=== PATIENT | female | born 1995 | race African-American/Black ===

== ENCOUNTER 2016-05-26 10:05 | Emergency (ER) | payer MEDICAID ==
[2016-05-26] MEDS ORDERED: ONDANSETRON 4 MG TAB.RAPDIS PO ONE ×2 (10:11→12:01)
--- NOTE | 2016-05-26 10:12 | ER Document Report ---
ED Medical Screen (RME) - General Stated Complaint: BODY ACHES Mode of Arrival: Ambulatory Information source: Patient Notes: Patient reports dry cough for 2 days, nausea and vomiting that started today. She reports hematuria. Patient also complains of right lower back pain as well. hx: None I have greeted and performed a rapid initial assessment of this patient. A comprehensive ED assessment and evaluation of the patient, analysis of test results and completion of the medical decision making process will be conducted by additional ED providers. TRAVEL OUTSIDE OF THE [place] IN LAST 30 DAYS: No - Related Data Allergies/Adverse Reactions: No Known Allergies Allergy (Verified 05/26/16 10:09) Past Medical History Endocrine Medical History: Denies: Hx Diabetes Mellitus Type 2 - Immunizations Hx Diphtheria, Pertussis, Tetanus Vaccination: Yes Physical Exam - Back Back: CVA tenderness - Right
[2016-05-26 10:45] LABS: ABSOLUTE EOSINOPHILS # (AUTO) 0.1 10^3/uL (0.0-0.6); ABSOLUTE LYMPHOCYTES (AUTO) 0.6 10^3/uL (0.5-4.7); ABSOLUTE MONOCYTES (AUTO) 0.5 10^3/uL (0.1-1.4); ABSOLUTE NEUT (AUTO) 4.6 10^3/uL (1.7-8.2); BASOPHILS % (AUTO) 0.7 % (0-2); HEMATOCRIT 36.2 % (36.0-47.0); HEMOGLOBIN 12.1 g/dL (12.0-15.5); HGB HCT DIFFERENCE 0.1; LYMPHOCYTES % (AUTO) 10.9 % (13-45); MEAN CORPUSCULAR HEMOGLOBIN 30.8 pg (27.0-33.4); MEAN CORPUSCULAR HGB CONC 33.5 g/dL (32.0-36.0); MEAN CORPUSCULAR VOLUME 92 fl (80-97); MONOCYTES % (AUTO) 8.2 % (3-13); RED BLOOD COUNT 3.94 10^6/uL (3.72-5.28); RED CELL DISTRIBUTION WIDTH 12.9 % (11.5-14.0); SEGMENTED NEUTROPHILS % (AUTO) 78.2 % (42-78); WHITE BLOOD COUNT 5.9 10^3/uL (4.0-10.5)
[2016-05-26 10:52] LABS: APPEARANCE,URINE TURBID; BILIRUBIN,URINE NEGATIVE (NEGATIVE); GLUCOSE, URINE NEGATIVE (NEGATIVE); KETONES,URINE NEGATIVE (NEGATIVE); LEUKOCYTE ESTERASE,URINE LARGE (NEGATIVE); NITRITE,URINE POSITIVE (NEGATIVE); PROTEIN,URINE 100 mg/dL (NEGATIVE); URINE SPECIFIC GRAVITY 1.018; UROBILINOGEN,URINE NEGATIVE mg/dL (<2.0)
[2016-05-26 10:59] LABS: ALANINE AMINOTRANSFERASE 43 U/L (9-52); ALKALINE PHOSPHATASE 59 U/L (38-126); ANION GAP 8 (5-19); ASPARTATE AMINO TRANSFERASE 31 U/L (14-36); BILIRUBIN,DIRECT 0.1 mg/dL (0.0-0.4); BILIRUBIN,TOTAL 0.3 mg/dL (0.2-1.3); BLOOD UREA NITROGEN 8 mg/dL (7-20); CALCIUM 9.5 mg/dL (8.4-10.2); CARBON DIOXIDE 29 mmol/L (22-30); CHLORIDE 109 mmol/L (98-107); GLUCOSE 89 mg/dL (75-110); POTASSIUM 4.4 mmol/L (3.6-5.0); SODIUM 146.2 mmol/L (137-145); TOTAL PROTEIN 6.8 g/dL (6.3-8.2)
[2016-05-26] MEDS ORDERED: ACETAMINOPHEN 325 MG TABLET PO ONE (12:01)
[2016-05-26] MEDS ORDERED: SULFAMETHOXAZOLE/TRIMETHOPRIM 800-160 MG TABLET PO ONE (12:02)
--- NOTE | 2016-05-26 12:08 | ER Document Report ---
ED General - General Chief Complaint: Pain All Over Stated Complaint: BODY ACHES Mode of Arrival: Ambulatory Information source: Patient Notes: This is a 21-year-old female who presents to the emergency department with a three-day history of a dry cough. She states that since this morning she developed dysuria and hematuria and subjective fevers. She has vomited twice today. He has bilateral flank pain left greater than right. The flank pain is mild. She is tolerating po. No known sick contacts or recent travel. She states that she has had a UTI in the past and this feels very similar. TRAVEL OUTSIDE OF THE [place] IN LAST 30 DAYS: No - Related Data Allergies/Adverse Reactions: No Known Allergies Allergy (Verified 05/26/16 10:09) Past Medical History - General Information source: Patient - Social History Smoking Status: Current Every Day Smoker Chew tobacco use (# tins/day): No Frequency of alcohol use: None Drug Abuse: None Family History: Reviewed & Not Pertinent Patient has suicidal ideation: No Patient has homicidal ideation: No Endocrine Medical History: Denies: Hx Diabetes Mellitus Type 2 Renal/ Medical History: Denies: Hx Peritoneal Dialysis - Immunizations Hx Diphtheria, Pertussis, Tetanus Vaccination: Yes Review of Systems - Review of Systems Notes: REVIEW OF SYSTEMS: CONSTITUTIONAL : As per history of present illness EENT: Denies eye, ear, throat, or mouth pain or symptoms. Denies nasal or sinus congestion. CARDIOVASCULAR: Denies chest pain. RESPIRATORY: Cough as per history of present illness. Denies shortness of breath, difficulty breathing, or wheezing. GASTROINTESTINAL: Denies abdominal pain. Flank pain and vomiting as per history of present illness. GENITOURINARY: As per history of present illness FEMALE GENITOURINARY: Denies vaginal bleeding, abnormal or irregular periods. LMP: 05/12/16 MUSCULOSKELETAL: Denies joint pain or swelling. SKIN: Denies rash or skin lesions. HEMATOLOGIC : Denies easy bruising or bleeding. LYMPHATIC: Denies swollen, enlarged glands. NEUROLOGICAL: Denies altered mental status or loss of consciousness. Denies headache. PSYCHIATRIC: Denies anxiety or stress or depression. ALL OTHER SYSTEMS REVIEWED AND NEGATIVE. Physical Exam - Vital signs Vitals: Temp Pulse Resp BP Pulse Ox 99.8 F 95 14 115/83 100 05/26/16 10:09 05/26/16 10:05/26/16 10:05/26/16 10:05/26/16 10:09 - Notes Notes: PHYSICAL EXAMINATION: GENERAL: Well-appearing, thin adult female, pleasant and conversant and in no acute distress. HEAD: Atraumatic, normocephalic. EYES: Pupils equal round and reactive to light, extraocular movements intact, sclera anicteric, conjunctiva are normal. ENT: nares patent, oropharynx clear without exudates. Moist mucous membranes. NECK: Normal range of motion, supple without lymphadenopathy LUNGS: Breath sounds clear to auscultation bilaterally and equal. No wheezes rales or rhonchi. HEART: Regular rate and rhythm without murmurs ABDOMEN: Soft, mild bilateral flank tenderness to palpation. Also mild suprapubic tenderness to palpation. No peritonitis., normoactive bowel sounds. No guarding, no rebound. No masses appreciated. EXTREMITIES: Normal range of motion, no pitting or edema. No cyanosis. NEUROLOGICAL: Cranial nerves grossly intact. Normal speech, normal gait. No gross focal motor or sensory deficits appreciated. PSYCH: Normal mood, normal affect. SKIN: Warm, Dry, normal turgor, no rashes or lesions noted. Course - Re-evaluation Re-evalutation: 05/26/16 12:12 Patient presents with dysuria and hematuria as well as frequency with a urinalysis consistent with an acute urinary tract infection. She does endorse left flank pain however has not been episodic and overall it is been mild. It is not consistent clinically with renal colic. I do not highly suspect an infected kidney stone at this point. Patient does have a remote history of kidney stones but this does not feel similar. Rather than proceed with CT will obtain a plain film to assess for evidence of urolithiasis. 05/26/16 13:34 KUB demonstrates no radiographic evidence of urolithiasis. Patient is resting comfortably. We will discharge home with pain and nausea medication as well as antibiotics for the urinary tract infection. Patient is advised to follow-up with her primary care physician and strict return precautions are discussed. - Vital Signs Vital signs: Temp Pulse Resp BP Pulse Ox 99.8 F 95 14 115/83 100 05/26/16 10:05/26/16 10:05/26/16 10:05/26/16 10:05/26/16 10:09 - Laboratory Result Diagrams: 05/26/16 10:24 05/26/16 10:24 Laboratory results interpreted by me: 05/26/16 05/26/16 05/26/16 10:24 10:24 10:24 Plt Count 148 L Seg Neutrophils % 78.2 H Lymphocytes % 10.9 L Sodium 146.2 H Chloride 109 H Urine Protein 100 H Urine Blood LARGE H Urine Nitrite POSITIVE H Ur Leukocyte Esterase LARGE H Discharge - Discharge Clinical Impression: UTI (urinary tract infection) Qualifiers: Urinary tract infection type: site unspecified Hematuria presence: with hematuria Qualified Code(s): N39.0 - Urinary tract infection, site not specified URI (upper respiratory infection) Qualifiers: URI type: unspecified URI Qualified Code(s): J06.9 - Acute upper respiratory infection, unspecified Disposition: HOME, SELF-CARE Additional Instructions: URINARY TRACT INFECTION: Your evaluation indicates that you have a urinary tract infection. This is due to germs growing in the bladder. This is a common problem. This infection usually responds quickly to antibiotics. Your antibiotic should be taken exactly as prescribed. Drink plenty of fluids -- three to four quarts a day. Occasionally, a bladder anesthetic will be prescribed to help stop the feeling of urgency until the antibiotic has a chance to clear the infection. This may cause your urine to be dark orange. Certain urine infections require a culture. If the doctor obtained a culture, the results will be back in two days. You should call to see if a change in treatment is needed. A repeat urinalysis after you finish treatment is often recommended. The physician will let you know if further testing is required. Call the doctor if you develop fever, chills, flank pain, inability to urinate, or blood in the urine. ANTIBIOTIC THERAPY: You have been given an antibiotic prescription. It's important that you take all the medication, unless instructed otherwise by your physician. Failure to complete the entire course can result in relapse of your condition. Common side effects of antibiotics include nausea, intestinal cramping, or diarrhea. Women may develop vaginal yeast infections, and babies can get yeast (thrush) in the mouth following the use of antibiotics. Contact your physician if you develop significant side effects from this medication. Allergy to this antibiotic can result in hives, wheezing, faintness, or itching. If symptoms of allergy occur, stop the medication and call the doctor. TRIMETHOPRIM-SULFA: You have been given a prescription for trimethoprim-sulfa (TMS, Septra, Bactrim). This is a combination antibiotic of the sulfa class, often used for urinary tract infections, middle ear infections, bronchitis, shigella intestinal infection, and Pneumocystis pneumonia. TMS is usually well-tolerated. Occasional side effects include nausea and decreased appetite. Septra is not recommended for infants less than two months of age. Do not take this medication if you have experienced severe side effects or allergy to sulfa medicine. You should stop this medicine at once and contact your physician if you develop any rash, joint pain, shortness of breath, bruising, or jaundice ( yellow color in the skin), or if you develop any other new or unusual symptoms. URINARY ANESTHETIC AGENT: You have been given a medication (Pyridium) for urinary tract discomfort. This medicine numbs the lining of the bladder and urethra, resulting in less pain, burning, and urgency. You may take it as needed, according to instructions. When the symptoms resolve, you can stop this medication (be sure to continue any other medications the doctor has given you). This medicine turns the urine a dark orange. It may stain underwear. Occasionally, it can cause nausea. Return for evaluation if there are any unexpected effects, such as itching, hives, or shortness of breath. FOLLOW-UP CARE: If you have been referred to a physician for follow-up care, call the physician s office for an appointment as you were instructed or within the next two days. If you experience worsening or a significant change in your symptoms, notify the physician immediately or return to the Emergency Department at any time for re-evaluation. Prescriptions: Phenazopyridine HCl [Pyridium 200 mg Tablet] 200 mg PO TID #6 tablet Promethazine HCl [Phenergan 25 mg Tablet] 1 tab PO Q6H PRN #10 tablet PRN Reason: Sulfamethoxazole/Trimethoprim [Bactrim Ds Tablet] 1 each PO BID #14 tablet Referrals: BEN MOORE MD [Primary Care Provider] - Follow up as needed
[2016-05-26 13:46] VITALS: BP 107/72
== END 2016-05-26 13:45 | disposition home or self-care (01) ==
LOC: ER 10:05
DX: N39.0 Urinary tract infection, site not specified (principal); R31.9 Hematuria, unspecified; J06.9 Acute upper respiratory infection, unspecified; R05 Cough; R30.0 Dysuria; R10.9 Unspecified abdominal pain; R11.10 Vomiting, unspecified; R35.0 Frequency of micturition; F17.200 Nicotine dependence, unspecified, uncomplicated; Z87.442 Personal history of urinary calculi
CPT/HCPCS: 99283; 36415; 84703; 85025; 80053; 81001; 74000; J3490 ×2; S0119

== ENCOUNTER 2016-07-04 07:53 | Emergency (ER) | payer MEDICAID ==
[2016-07-04 08:35] LABS: ABSOLUTE LYMPHOCYTES (AUTO) 1.1 10^3/uL (0.5-4.7); ABSOLUTE MONOCYTES (AUTO) 0.5 10^3/uL (0.1-1.4); ABSOLUTE NEUT (AUTO) 7.7 10^3/uL (1.7-8.2); BASOPHILS % (AUTO) 0.3 % (0-2); EOSINOPHILS % (AUTO) 0.1 % (0-6); LYMPHOCYTES % (AUTO) 11.7 % (13-45); MEAN CORPUSCULAR HEMOGLOBIN 31.1 pg (27.0-33.4); MEAN CORPUSCULAR HGB CONC 34.1 g/dL (32.0-36.0); MEAN CORPUSCULAR VOLUME 91 fl (80-97); MONOCYTES % (AUTO) 5.9 % (3-13); RED CELL DISTRIBUTION WIDTH 12.9 % (11.5-14.0); WHITE BLOOD COUNT 9.4 10^3/uL (4.0-10.5)
[2016-07-04 08:38] LABS: APPEARANCE,URINE SLIGHTLY-CLOUDY; BILIRUBIN,URINE SMALL (NEGATIVE); GLUCOSE, URINE NEGATIVE (NEGATIVE); KETONES,URINE 80 mg/dL (NEGATIVE); LEUKOCYTE ESTERASE,URINE TRACE (NEGATIVE); NITRITE,URINE NEGATIVE (NEGATIVE); PROTEIN,URINE 100 mg/dL (NEGATIVE); URINE SPECIFIC GRAVITY 1.038
--- NOTE | 2016-07-04 08:49 | ER Document Report ---
ED Psych Disorder / Suicide - General Information source: Patient, Parent TRAVEL OUTSIDE OF THE [place] IN LAST 30 DAYS: No - HPI Patient complains to provider of: Bizarre behavior Onset: Other - 2 days ago Suicide Risk Factors: Frightened friends/family, Substance abuse - Marijuana Associated symptoms: Manic, Taoism preoccupation <SUNSHINE MOMIN - Last Filed: 07/04/16 08:42> <FINA SPENCE - Last Filed: 07/04/16 15:39> - General Chief Complaint: Psych Problem Stated Complaint: PSYCH EVALUATION Notes: Patient is a 21-year-old female presenting to the emergency department accompanied by her mother who states that the patient has been "talking out of her head" for the past 2 days. Patient's mother states that she has been discussing angels and demons. Patient's mother thinks that she may have had something laced in her marijuana. Patient's patient's mother also states that the patient's father has a history of schizophrenia that was diagnosed in his early 20s. Upon entering the room, patient asked Dr. Spence why he was scared, and states that she can "sense the fear on his heart." Patient also is saying interesting comments such as "I can turn down the lights, I just need my mommy to start telling the truth first." "It is all mind over matter." Patient is convinced that she should not have come to the emergency department because we are going to give her a psychiatric diagnosis, and she does not want to have a psychiatric diagnosis. (SUNSHINE MOMIN) - Related Data Allergies/Adverse Reactions: No Known Allergies Allergy (Verified 07/04/16 07:54) Home Medications: Current Home Medications No Home Medications 07/04/16 [History] Past Medical History - General Information source: Patient, Parent - Social History Smoking Status: Unknown if Ever Smoked Drug Abuse: Marijuana Family History: Other - Father Hx of Schizophrenia Patient has suicidal ideation: No Patient has homicidal ideation: No - Immunizations Hx Diphtheria, Pertussis, Tetanus Vaccination: Yes <SUNSHINE MOMIN - Last Filed: 07/04/16 08:42> Review of Systems - Review of Systems Constitutional: No symptoms reported EENT: No symptoms reported Cardiovascular: No symptoms reported Respiratory: No symptoms reported Gastrointestinal: No symptoms reported Genitourinary: No symptoms reported Female Genitourinary: No symptoms reported Musculoskeletal: No symptoms reported Skin: No symptoms reported Hematologic/Lymphatic: No symptoms reported Neurological/Psychological: No symptoms reported, Other - Manic -: Yes All other systems reviewed and negative <SUNSHINE MOMIN - Last Filed: 07/04/16 08:42> <FINA SPENCE - Last Filed: 07/04/16 15:39> - Review of Systems Notes: Obtained from mother at bedside (LIZZSUNSHINE) Physical Exam - General General appearance: Alert - HEENT Head: Normocephalic, Atraumatic Eyes: Normal Pupils: PERRL - Respiratory Respiratory status: No respiratory distress Breath sounds: Normal - Cardiovascular Rhythm: Regular - Abdominal Inspection: Normal Tenderness: Nontender - Back Back: Normal, Nontender - Extremities General upper extremity: Normal inspection, Nontender General lower extremity: Normal inspection, Nontender - Neurological Neuro grossly intact: Yes Cognition: Normal [place] Coma Scale Eye Opening: Spontaneous Carly Coma Scale Verbal: Oriented [place] Coma Scale Motor: Obeys Commands [place] Coma Scale Total: 15 - Psychological Associated symptoms: Manic - Skin Skin Temperature: Warm Skin Moisture: Dry Skin Color: Normal <LIZZSUNSHINE - Last Filed: 07/04/16 08:42> Course - Laboratory Result Diagrams: 07/04/16 08:08 <SUNSHINE MOMIN - Last Filed: 07/04/16 08:42> - Laboratory Result Diagrams: 07/04/16 08:08 07/04/16 08:08 - EKG Interpretation by Oh EKG shows normal: Sinus rhythm, [place], Intervals, QRS Complexes, ST-T Waves Rate: Normal - 95 Rhythm: NSR <FINA SPENCE - Last Filed: 07/04/16 15:39> - Re-evaluation Re-evalutation: 07/04/16 14:47 Patient was seen by psychiatry department feels that this is probably a bipolar manic psychotic episode, IVC paperwork was filled out. (FINA SPENCE) - Vital Signs Vital signs: Temp Pulse Resp BP Pulse Ox 98.2 F 110 H 20 116/75 98 07/04/16 07:58 07/04/16 07:58 07/04/16 09:05 07/04/16 07:58 07/04/16 07:58 - Laboratory Laboratory results interpreted by me: 07/04/16 07/04/16 07/04/16 08:08 08:08 08:08 Seg Neutrophils % 82.0 H Lymphocytes % 11.7 L Sodium 146.7 H Glucose 117 H Urine Protein 100 H Urine Ketones 80 H Urine Bilirubin SMALL H Urine Urobilinogen 2.0 H Ur Leukocyte Esterase TRACE H Urine Ascorbic Acid 40 H Salicylates < 1.0 L Acetaminophen < 10 L Discharge <SUNSHINE MOMIN - Last Filed: 07/04/16 08:42> <FINA SPENCE - Last Filed: 07/04/16 15:39> - Discharge Clinical Impression: Manic psychosis Condition: Stable Disposition: PSYCH HOSP/UNIT Referrals: ANN TOMAS MD [Primary Care Provider] - Follow up as needed Scribe Attestation: 07/04/16 14:47 I personally performed the services described in the documentation, reviewed and edited the documentation which was dictated to the scribe in my presence, and it accurately records my words and actions. (FINA SPENCE) Scribe Documentation - Scribe Written by Scribe:: Sunshine Momin 07/04/2016 0842 acting as scribe for :: Colby <SNUSHINE MOMIN - Last Filed: 07/04/16 08:42>
[2016-07-04 08:53] LABS: ALANINE AMINOTRANSFERASE 26 U/L (9-52); ALBUMIN 4.8 g/dL (3.5-5.0); ALKALINE PHOSPHATASE 62 U/L (38-126); ANION GAP 18 (5-19); ASPARTATE AMINO TRANSFERASE 20 U/L (14-36); BILIRUBIN,DIRECT 0.2 mg/dL (0.0-0.4); BILIRUBIN,TOTAL 0.7 mg/dL (0.2-1.3); BLOOD UREA NITROGEN 17 mg/dL (7-20); CALCIUM 10.2 mg/dL (8.4-10.2); CARBON DIOXIDE 22 mmol/L (22-30); CHLORIDE 107 mmol/L (98-107); CREATININE RESULT 0.73 mg/dL (0.52-1.25); GLUCOSE 117 mg/dL (75-110); POTASSIUM 3.9 mmol/L (3.6-5.0); SODIUM 146.7 mmol/L (137-145); TOTAL PROTEIN 8.2 g/dL (6.3-8.2)
[2016-07-04 08:54] LABS: ALCOHOL < 10 mg/dL (NONE DETECTED)
[2016-07-04 09:02] LABS: URINE BARBITURATES SCREEN NEGATIVE; URINE METHADONE SCREEN NEGATIVE; URINE OPIATES LOW NEGATIVE; URINE PHENCYCLIDINE SCREEN NEGATIVE
[2016-07-04] MEDS ORDERED: ONDANSETRON 4 MG TAB.RAPDIS PO ONE (13:19)
--- NOTE | 2016-07-04 13:35 | EKG REPORT ---
SEVERITY:- NORMAL ECG - SINUS RHYTHM : Confirmed by: Timo Brooks MD 04-Jul-2016 13:34:55
[2016-07-04] MEDS ORDERED: OLANZAPINE 5 MG TABLET PO PRN (13:51)
[2016-07-04] MEDS ORDERED: BENZTROPINE MESYLATE 1 MG TABLET PO SCH (14:00)
[2016-07-04] MEDS ORDERED: HALOPERIDOL 5 MG TABLET PO SCH (14:00)
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
[2016-07-04 18:11] VITALS: BP 104/64
== END 2016-07-04 19:15 ==
LOC: ER 07:53
DX: F30.9 Manic episode, unspecified (principal); Z81.8 Family history of other mental and behavioral disorders
CPT/HCPCS: 93005; 99285; 36415; 80307 ×4; 84703; 85025; 81025; 80053; 81001; 93010; S0119

== ENCOUNTER 2016-12-26 15:10 | Emergency (ER) | payer SELFPAY ==
[2016-12-26 15:38] VITALS: BP 107/60
--- NOTE | 2016-12-26 17:27 | ER Document Report ---
ED GI/ - General Mode of Arrival: Medic Information source: Patient TRAVEL OUTSIDE OF THE [place] IN LAST 30 DAYS: No - HPI Patient complains to provider of: Abdominal pain Onset: This morning Associated symptoms: Other - see notes above <ROMAN DAMIAN - Last Filed: 12/26/16 21:37> <MOLLY VANN - Last Filed: 12/26/16 22:39> - General Chief Complaint: Abdominal Pain Stated Complaint: ABDOMINAL PAIN Time Seen by Provider: 12/26/16 16:45 Notes: 21 year old female (A0; 7 weeks) presents to the ED complaining of abdominal pain that started earlier today. Patient is additionally complaining of lower back pain, headache, vaginal discharge, and some rectal bleeding which she believes is due to her straining. Patient reports that she hadn't had a normal bowel movement in 1 week, but states that she finally had a normal one shortly before being seen today. Patient has not started taking pre-wilfredo vitamins. Patient's last menstrual period was 10/22/2016. Patient denies vaginal bleeding. (ROMAN DAMIAN) - Related Data Allergies/Adverse Reactions: No Known Allergies Allergy (Verified 07/04/16 07:54) Past Medical History - General Information source: Patient - Social History Smoking Status: Former Smoker Chew tobacco use (# tins/day): No Frequency of alcohol use: None Drug Abuse: None Family History: Other - Father Hx of Schizophrenia Endocrine Medical History: Denies: Hx Diabetes Mellitus Type 2 Renal/ Medical History: Reports: Hx Kidney Stones. Denies: Hx Peritoneal Dialysis - Immunizations Hx Diphtheria, Pertussis, Tetanus Vaccination: Yes <ROMAN DAMIAN - Last Filed: 12/26/16 21:37> Review of Systems - Review of Systems Constitutional: No symptoms reported EENT: No symptoms reported Cardiovascular: No symptoms reported Respiratory: No symptoms reported Gastrointestinal: See HPI, Abdominal pain, Rectal bleeding, Other - abnormal bowel movements Genitourinary: No symptoms reported Female Genitourinary: See HPI, - 7 weeks, Vaginal discharge. denies: Vaginal bleeding Musculoskeletal: See HPI, Back pain - lower Skin: No symptoms reported Hematologic/Lymphatic: No symptoms reported Neurological/Psychological: See HPI, Headaches -: Yes All other systems reviewed and negative <ROMAN DAMIAN - Last Filed: 12/26/16 21:37> Physical Exam <ROMAN DAMIAN - Last Filed: 12/26/16 21:37> <MOLLY VANN - Last Filed: 12/26/16 22:39> - Vital signs Vitals: Temp Pulse Resp BP Pulse Ox 98.7 F 86 13 107/60 100 12/26/16 15:34 12/26/16 15:34 12/26/16 15:34 12/26/16 15:34 12/26/16 15:34 - Notes Notes: GENERAL: Alert, interacts well. No acute distress. HEAD: Normocephalic, atraumatic. EYES: Pupils equal, round, and reactive to light. Extraocular movements intact. ENT: Oral mucosa moist, tongue midline. NECK: Full range of motion. Supple. Trachea midline. LUNGS: Clear to auscultation bilaterally, no wheezes, rales, or rhonchi. No respiratory distress. HEART: Regular rate and rhythm. No murmurs, gallops, or rubs. ABDOMEN: Soft, non-tender. Non-distended. Bowel sounds present in all 4 quadrants. Semi-firm stool to the RLQ. RECTAL: Non-thrombosed external hemorrhoid at the 12 o'clock position. No external or internal bleeding. No stool is visualized. Minimally tender on exam. No impaction. Rectal exam was chaperoned by Niecy Jose. EXTREMITIES: Moves all 4 extremities spontaneously. No edema, radial pulses 2/4 bilaterally. No cyanosis. NEUROLOGICAL: Alert and oriented x3. Normal speech. PSYCH: Normal affect, normal mood. SKIN: Warm, dry, normal turgor. No rashes or lesions noted. (ROMAN DAMIAN) Course - Laboratory Result Diagrams: 12/26/16 17:48 12/26/16 17:48 <ROMAN DAMIAN - Last Filed: 12/26/16 21:37> - Laboratory Result Diagrams: 12/26/16 17:48 12/26/16 17:48 <MOLLY VANN - Last Filed: 12/26/16 22:39> - Re-evaluation Re-evalutation: 12/26/16 22:39 CBC shows slight leukocytosis 12.3 otherwise unremarkable, CMP unremarkable, quantitative beta-hCG elevated at 265,440, transvaginal US ordered to confirm IUP, pt requests STD check, dirty urine sent to lab, unfortunately this was run as a clean urine. Patietn states she does not want to wait for the results nor does she want to wait for the ultrasound. Patient then eloped and I was not informed of this. Patient did state that she will go to the health department tomorrow to have her vaginal discharge checked for signs of sexually transmitted disease. (MOLLY VANN) - Vital Signs Vital signs: Temp Pulse Resp BP Pulse Ox 98.7 F 86 13 107/60 100 12/26/16 15:34 12/26/16 15:34 12/26/16 15:34 12/26/16 15:34 12/26/16 15:34 - Laboratory Laboratory results interpreted by me: 12/26/16 12/26/16 12/26/16 17:15 17:48 17:48 WBC 12.3 H Seg Neutrophils % 79.5 H Absolute Neutrophils 9.8 H Beta HCG, Quant 358351.00 H Urine Protein 30 H Urine Ketones TRACE H Urine Bilirubin SMALL H Urine Urobilinogen 4.0 H Ur Leukocyte Esterase TRACE H Discharge <ROMAN DAMIAN - Last Filed: 12/26/16 21:37> <MOLLY VANN - Last Filed: 12/26/16 22:39> - Discharge Clinical Impression: First trimester , Abdominal pain affecting , antepartum Condition: Stable Disposition: ELOPED Scribe Attestation: 12/26/16 22:39 I personally performed the services described in the documentation, reviewed and edited the documentation which was dictated to the scribe in my presence, and it accurately records my words and actions. (MOLLY VANN) Scribe Documentation - Scribe Written by Sharondaibshawn:: Ranjeet Danielson, 12/26/2016 1833 acting as scribe for :: Sruthi <ROMAN DAMIAN - Last Filed: 12/26/16 21:37>
[2016-12-26 17:51] LABS: APPEARANCE,URINE CLOUDY; BILIRUBIN,URINE SMALL (NEGATIVE); GLUCOSE, URINE NEGATIVE (NEGATIVE); KETONES,URINE TRACE mg/dL (NEGATIVE); LEUKOCYTE ESTERASE,URINE TRACE (NEGATIVE); NITRITE,URINE NEGATIVE (NEGATIVE); PROTEIN,URINE 30 mg/dL (NEGATIVE); URINE SPECIFIC GRAVITY 1.032
[2016-12-26 18:13] LABS: ABSOLUTE EOSINOPHILS # (AUTO) 0.1 10^3/uL (0.0-0.6); ABSOLUTE LYMPHOCYTES (AUTO) 1.6 10^3/uL (0.5-4.7); ABSOLUTE MONOCYTES (AUTO) 0.7 10^3/uL (0.1-1.4); ABSOLUTE NEUT (AUTO) 9.8 10^3/uL (1.7-8.2); BASOPHILS % (AUTO) 0.3 % (0-2); EOSINOPHILS % (AUTO) 1.1 % (0-6); HEMATOCRIT 36.9 % (36.0-47.0); HGB HCT DIFFERENCE 2.1; LYMPHOCYTES % (AUTO) 13.3 % (13-45); MEAN CORPUSCULAR HEMOGLOBIN 31.6 pg (27.0-33.4); MEAN CORPUSCULAR HGB CONC 35.4 g/dL (32.0-36.0); MEAN CORPUSCULAR VOLUME 89 fl (80-97); MONOCYTES % (AUTO) 5.8 % (3-13); RED BLOOD COUNT 4.12 10^6/uL (3.72-5.28); RED CELL DISTRIBUTION WIDTH 12.2 % (11.5-14.0); SEGMENTED NEUTROPHILS % (AUTO) 79.5 % (42-78); WHITE BLOOD COUNT 12.3 10^3/uL (4.0-10.5)
[2016-12-26 18:39] LABS: ALANINE AMINOTRANSFERASE 49 U/L (9-52); ALBUMIN 4.4 g/dL (3.5-5.0); ALKALINE PHOSPHATASE 52 U/L (38-126); ANION GAP 13 (5-19); ASPARTATE AMINO TRANSFERASE 20 U/L (14-36); BILIRUBIN,DIRECT 0.4 mg/dL (0.0-0.4); BILIRUBIN,TOTAL 0.6 mg/dL (0.2-1.3); BLOOD UREA NITROGEN 8 mg/dL (7-20); CARBON DIOXIDE 24 mmol/L (22-30); CHLORIDE 105 mmol/L (98-107); CREATININE RESULT 0.55 mg/dL (0.52-1.25); GLUCOSE 82 mg/dL (75-110); POTASSIUM 4.7 mmol/L (3.6-5.0); SODIUM 141.6 mmol/L (137-145); TOTAL PROTEIN 7.5 g/dL (6.3-8.2)
== END 2016-12-26 20:30 | disposition left against medical advice (07) ==
LOC: ER 15:10
DX: O26.91 Pregnancy related conditions, unspecified, first trimester (principal); R10.9 Unspecified abdominal pain; M54.5 Low back pain; R51 Headache; K62.5 Hemorrhage of anus and rectum; Z3A.01 Less than 8 weeks gestation of pregnancy
CPT/HCPCS: 36415; 80053; 81001; 84702; 85025; 86900; 86901; 99281

== ENCOUNTER 2017-02-14 03:14 | Emergency (ER) | payer SELFPAY ==
[2017-02-14] MEDS ORDERED: ACETAMINOPHEN 325 MG TABLET PO ONE (03:37)
[2017-02-14] MEDS ORDERED: LIDOCAINE 1%/EPINEPHRINE INJ 20 ML VIAL INJ ONE (03:38)
[2017-02-14] MEDS ORDERED: LIDOCAINE 4%/TETRACAINE 0.5%/EPI 0.18% 5 ML TOPICAL SOLN TOP ONE (03:38)
[2017-02-14] MEDS ORDERED: DIPH/PERTUSS(ACELL)/TETANUS VAC/PF 0.5 ML SYR (>=10YO) IM ONE (03:39)
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
--- NOTE | 2017-02-14 04:30 | RADIOLOGY REPORT (SQ) ---
EXAM DESCRIPTION: TIBIA FIBULA RIGHT CLINICAL HISTORY: foreign body? COMPARISON: None. FINDINGS: 2 views of the right tibia and fibula. No acute fracture or dislocation. Normal osseous mineralization. Laceration with subcutaneous air involving the posterior right lower extremity soft tissues. No definite radiopaque foreign body identified. IMPRESSION: 1. No acute fracture identified. No radiopaque foreign body identified.
[2017-02-14] MEDS ORDERED: CEPHALEXIN 500 MG CAPSULE PO ONE (04:57)
[2017-02-14 05:44] VITALS: BP 137/76
== END 2017-02-14 05:42 | disposition home or self-care (01) ==
LOC: ER 03:14
DX: S81.811A Laceration without foreign body, right lower leg, initial encounter (principal); W25.XXXA Contact with sharp glass, initial encounter; Y92.59 Other trade areas as the place of occurrence of the external cause; F41.9 Anxiety disorder, unspecified; F17.200 Nicotine dependence, unspecified, uncomplicated
CPT/HCPCS: 99283; 90471; 73590; 90715; 12002; J3490 ×2

== ENCOUNTER 2017-02-14 11:08 | Emergency (ER) | payer SELFPAY ==
[2017-02-14 12:22] LABS: ABSOLUTE BASOPHILS # (AUTO) 0.1 10^3/uL (0.0-0.2); ABSOLUTE EOSINOPHILS # (AUTO) 0.1 10^3/uL (0.0-0.6); ABSOLUTE LYMPHOCYTES (AUTO) 2.4 10^3/uL (0.5-4.7); ABSOLUTE MONOCYTES (AUTO) 0.9 10^3/uL (0.1-1.4); ABSOLUTE NEUT (AUTO) 7.3 10^3/uL (1.7-8.2); BASOPHILS % (AUTO) 0.5 % (0-2); EOSINOPHILS % (AUTO) 0.7 % (0-6); HEMATOCRIT 38.1 % (36.0-47.0); HEMOGLOBIN 13.3 g/dL (12.0-15.5); HGB HCT DIFFERENCE 1.8; LYMPHOCYTES % (AUTO) 22.6 % (13-45); MEAN CORPUSCULAR HGB CONC 34.9 g/dL (32.0-36.0); MEAN CORPUSCULAR VOLUME 92 fl (80-97); MONOCYTES % (AUTO) 8.5 % (3-13); RED BLOOD COUNT 4.15 10^6/uL (3.72-5.28); RED CELL DISTRIBUTION WIDTH 12.8 % (11.5-14.0); SEGMENTED NEUTROPHILS % (AUTO) 67.7 % (42-78); WHITE BLOOD COUNT 10.7 10^3/uL (4.0-10.5)
--- NOTE | 2017-02-14 12:47 | EKG REPORT ---
SEVERITY:- NORMAL ECG - SINUS RHYTHM : Confirmed by: Ainsley Alvarenga 14-Feb-2017 12:47:20
[2017-02-14 12:49] LABS: ALANINE AMINOTRANSFERASE 32 U/L (9-52); ALBUMIN 4.4 g/dL (3.5-5.0); ALKALINE PHOSPHATASE 59 U/L (38-126); ANION GAP 12 (5-19); ASPARTATE AMINO TRANSFERASE 21 U/L (14-36); BILIRUBIN,DIRECT 0.5 mg/dL (0.0-0.4); BLOOD UREA NITROGEN 11 mg/dL (7-20); CALCIUM 9.4 mg/dL (8.4-10.2); CARBON DIOXIDE 26 mmol/L (22-30); CHLORIDE 107 mmol/L (98-107); CREATININE RESULT 0.67 mg/dL (0.52-1.25); GLUCOSE 95 mg/dL (75-110); POTASSIUM 3.4 mmol/L (3.6-5.0); SODIUM 144.9 mmol/L (137-145)
[2017-02-14 12:50] LABS: ALCOHOL < 10 mg/dL (NONE DETECTED)
[2017-02-14 14:38] LABS: APPEARANCE,URINE CLEAR; BILIRUBIN,URINE NEGATIVE (NEGATIVE); GLUCOSE, URINE NEGATIVE (NEGATIVE); KETONES,URINE NEGATIVE (NEGATIVE); LEUKOCYTE ESTERASE,URINE NEGATIVE (NEGATIVE); NITRITE,URINE NEGATIVE (NEGATIVE); PROTEIN,URINE NEGATIVE (NEGATIVE); URINE SPECIFIC GRAVITY 1.005; UROBILINOGEN,URINE NEGATIVE mg/dL (<2.0)
[2017-02-14 14:54] LABS: URINE BARBITURATES SCREEN NEGATIVE; URINE METHADONE SCREEN NEGATIVE; URINE OPIATES LOW NEGATIVE; URINE PHENCYCLIDINE SCREEN NEGATIVE
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
[2017-02-14] MEDS ORDERED: BENZTROPINE MESYLATE 1 MG TABLET PO SCH (16:30)
[2017-02-14] MEDS: HALOPERIDOL 5 MG TABLET PO SCH (17:20)
[2017-02-14] MEDS: DIVALPROEX SODIUM 500 MG TAB.SR.24H PO SCH (17:20)
[2017-02-15] MEDS: DIVALPROEX SODIUM 500 MG TAB.SR.24H PO SCH (09:59)
[2017-02-15] MEDS: HALOPERIDOL 5 MG TABLET PO SCH (09:59)
--- NOTE | 2017-02-15 10:04 | ER Document Report ---
Doctor's Note Notes: 02/15/17 10:02 Rounds: Chart reviewed and patient interviewed. Patient is awake and alert and smiling and appears to be acting normally, according to her mother, who is at bedside. Patient says she remembers "snorting" something and was told it was Percocet. Does not think it was cocaine. None of these medications are showing up on the patient's drug screen, only positive for marijuana. She may have had marijuana laced with some drug or medication that is undetectable by our drug testing. Vital signs were all normal. Lab studies were otherwise normal. Patient appears to be medically stable for transfer or discharge. Tory Powers MD
[2017-02-15 11:20] VITALS: BP 125/80
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
== END 2017-02-15 11:20 | disposition home or self-care (01) ==
LOC: ER 11:08
DX: F31.9 Bipolar disorder, unspecified (principal); F12.99 Cannabis use, unspecified with unspecified cannabis-induced disorder
CPT/HCPCS: 36415; 80053; 80307; 81001; 84703; 85025; 93005; 93010; 99285

== ENCOUNTER 2017-02-18 14:01 | Emergency (ER) | payer SELFPAY ==
[2017-02-18 14:09] VITALS: BP 117/88
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
[2017-02-18 14:59] LABS: APPEARANCE,URINE CLEAR; BILIRUBIN,URINE NEGATIVE (NEGATIVE); GLUCOSE, URINE NEGATIVE (NEGATIVE); KETONES,URINE NEGATIVE (NEGATIVE); LEUKOCYTE ESTERASE,URINE NEGATIVE (NEGATIVE); NITRITE,URINE NEGATIVE (NEGATIVE); PROTEIN,URINE NEGATIVE (NEGATIVE); URINE SPECIFIC GRAVITY 1.017; UROBILINOGEN,URINE NEGATIVE mg/dL (<2.0)
[2017-02-18] MEDS ORDERED: LIDOCAINE 1% INJ-PF (10 MG/ML) 30 ML SDV INFIL ONE (15:39)
[2017-02-18] MEDS ORDERED: AZITHROMYCIN 250 MG TABLET PO ONE (15:39)
[2017-02-18] MEDS ORDERED: CEFTRIAXONE INJ 250 MG VIAL IM ONE (15:40)
== END 2017-02-18 16:28 | disposition home or self-care (01) ==
LOC: ER 14:01
DX: Z03.89 Encounter for observation for other suspected diseases and conditions ruled out (principal); N76.0 Acute vaginitis; B96.89 Other specified bacterial agents as the cause of diseases classified elsewhere
CPT/HCPCS: 99284; 96372; 87210; 81025; 81001; 87491; 87591; J3490; J0696

== ENCOUNTER 2017-02-25 09:56 | Emergency (ER) | payer SELFPAY ==
[2017-02-25 10:04] VITALS: BP 122/76
--- NOTE | 2017-02-25 10:18 | ER Document Report ---
ED Suture/Wound Recheck - General Chief Complaint: Suture Removal Stated Complaint: SUTURE REMOVAL Time Seen by Provider: 02/25/17 10:07 Mode of Arrival: Ambulatory Information source: Patient Notes: 22-year-old female presented to ED for sutures to her right medial ankle. She states they will put in between the 12th and 16th she is not sure. There is no redness no inflammation no drainage but they do not quite look ready to be removed. Will leave in until the February 28 at which time she has been instructed to come back and get them taken out. TRAVEL OUTSIDE OF THE [place] IN LAST 30 DAYS: No - HPI Previous ED treatment: Laceration repair Quality of pain: No pain Severity: None Pain Level: Denies Context: Injury Symptoms since procedure: No complaints Exacerbated by: Denies Relieved by: Denies - Related Data Allergies/Adverse Reactions: No Known Allergies Allergy (Verified 02/25/17 09:57) Past Medical History - General Information source: Patient - Social History Smoking Status: Current Every Day Smoker Cigarette use (# per day): Yes Chew tobacco use (# tins/day): No Smoking Education Provided: Yes - 3 minutes Frequency of alcohol use: None Drug Abuse: None Family History: Reviewed & Not Pertinent, Other - Father Hx of Schizophrenia Patient has suicidal ideation: No Patient has homicidal ideation: No - Past Medical History Cardiac Medical History: Reports: None Pulmonary Medical History: Reports: None EENT Medical History: Reports: None Neurological Medical History: Reports: None Endocrine Medical History: Reports: None Renal/ Medical History: Reports: Hx Kidney Stones, Hx Pelvic Inflammatory Disease Malignancy Medical History: Reports: None GI Medical History: Reports: None Musculoskeltal Medical History: Reports None Skin Medical History: Reports Hx Cellulitis Psychiatric Medical History: Reports: Hx Bipolar Disorder Traumatic Medical History: Reports: None Infectious Medical History: Reports: None Surgical Hx: Negative Past Surgical History: Reports: None - Immunizations Hx Diphtheria, Pertussis, Tetanus Vaccination: Yes Review of Systems - Review of Systems Constitutional: No symptoms reported EENT: No symptoms reported Cardiovascular: No symptoms reported Respiratory: No symptoms reported Gastrointestinal: No symptoms reported Genitourinary: No symptoms reported Female Genitourinary: No symptoms reported Musculoskeletal: No symptoms reported Skin: Other - Sutures still intact need a couple more days of healing Hematologic/Lymphatic: No symptoms reported Neurological/Psychological: No symptoms reported -: Yes All other systems reviewed and negative Physical Exam - Vital signs Vitals: Temp Pulse Resp BP Pulse Ox 98.3 F 115 H 14 122/76 100 02/25/17 10:03 02/25/17 10:03 02/25/17 10:03 02/25/17 10:03 02/25/17 10:03 Interpretation: Normal - General General appearance: Appears well, Alert - HEENT Head: Normocephalic, Atraumatic Eyes: Normal Pupils: PERRL - Respiratory Respiratory status: No respiratory distress Chest status: Nontender Breath sounds: Normal Chest palpation: Normal - Cardiovascular Rhythm: Regular Heart sounds: Normal auscultation Murmur: No - Abdominal Inspection: Normal Distension: No distension Bowel sounds: Normal Tenderness: Nontender Organomegaly: No organomegaly - Back Back: Normal, Nontender - Extremities General upper extremity: Normal inspection, Nontender, Normal color, Normal ROM , Normal temperature General lower extremity: Nontender, Normal color, Normal ROM, Normal temperature , Normal weight bearing. No: Audrey's sign Calf: Laceration - Sutures are not quite healed yet. I have instructed patient to return in 3 days for suture removal. - Neurological Neuro grossly intact: Yes Cognition: Normal Orientation: AAOx4 Carly Coma Scale Eye Opening: Spontaneous [place] Coma Scale Verbal: Oriented Carly Coma Scale Motor: Obeys Commands Carly Coma Scale Total: 15 Speech: Normal Motor strength normal: LUE, RUE, LLE, RLE Sensory: Normal - Psychological Associated symptoms: Normal affect, Normal mood - Skin Skin Temperature: Warm Skin Moisture: Dry Skin Color: Normal Skin irregularity: Laceration - Patient needs at least 3 more days first healing. Patient must have been messing with the sutures because they are not quite healed there is no signs of infection no inflammation no redness and no drainage. Course - Vital Signs Vital signs: Temp Pulse Resp BP Pulse Ox 98.3 F 115 H 14 122/76 100 02/25/17 10:03 02/25/17 10:03 02/25/17 10:03 02/25/17 10:03 02/25/17 10:03 Discharge - Discharge Clinical Impression: Encounter for wound re-check Condition: Stable Disposition: HOME, SELF-CARE Additional Instructions: Please return on February 28 to have your sutures removed. They are not quite ready to be removed. Please do not play with your incision. Please wash area clean with antibacterial soap and apply bacitracin and bandage. Use Tylenol or Motrin for your pain. SOAP CLEANSING: Gently wash the wound daily using a mild soap (like Ivory, Phisoderm, Neutrogena). Use warm water, rubbing gently until all debris, ooze, and crusting have been washed from the wound. Allow to dry briefly (about 10 minutes) after cleaning. Repeat this cleansing at least three times a day for the first two days and then once or twice a day. ANTIBIOTIC OINTMENT PROTECTION: Your wounds are such that dressing them is not practical or optional. After cleansing, you should apply a thin coating of antibiotic ointment ( Bacitracin, not Neosporin) to the wounds at least three times daily. This lessens infection risk, and may decrease the amount of scarring. Use a q-tip or dull butter knife, not your finger, to apply this ointment. Any debris or ooze which builds up in the ointment should be gently rubbed off with a sterile gauze pad. Harder crusting may need to be gently scrubbed off with a clean wash cloth with soap and warm water, perhaps applying a warm, wet wash cloth to the wound for ten minutes first. Development of redness, severe itching, or blistering may mean allergy to the ointment. See the doctor. FOLLOW-UP CARE: If you have been referred to a physician for follow-up care, call the physician s office for an appointment as you were instructed or within the next two days. If you experience worsening or a significant change in your symptoms, notify the physician immediately or return to the Emergency Department at any time for re-evaluation. Forms: Smoking Cessation Education
== END 2017-02-25 10:28 | disposition home or self-care (01) ==
LOC: ER 09:56
DX: Z48.02 Encounter for removal of sutures (principal); F17.210 Nicotine dependence, cigarettes, uncomplicated
CPT/HCPCS: 99281

== ENCOUNTER 2017-03-18 18:49 | Emergency (ER) | payer SELFPAY ==
--- NOTE | 2017-03-18 19:05 | ER Document Report ---
ED Medical Screen (RME) - General Chief Complaint: Psych Problem Stated Complaint: PSYCH EVAL Time Seen by Provider: 03/18/17 19:03 Mode of Arrival: Ambulatory Information source: Patient TRAVEL OUTSIDE OF THE [place] IN LAST 30 DAYS: No - HPI Patient complains to provider of: psych eval Onset: Other - pt. has h/o schizophrenia on risperadol who have been having suicidal ideation recently - Related Data Allergies/Adverse Reactions: No Known Allergies Allergy (Verified 02/25/17 09:57) Past Medical History Endocrine Medical History: Denies: Hx Diabetes Mellitus Type 2 Renal/ Medical History: Reports: Hx Kidney Stones, Hx Pelvic Inflammatory Disease. Denies: Hx Peritoneal Dialysis Skin Medical History: Reports Hx Cellulitis Psychiatric Medical History: Reports: Hx Bipolar Disorder - Immunizations Hx Diphtheria, Pertussis, Tetanus Vaccination: Yes Physical Exam - Vital signs Vitals: Temp Pulse Resp BP Pulse Ox 98.2 F 122 H 20 124/71 100 03/18/17 18:58 03/18/17 18:58 03/18/17 18:58 03/18/17 18:58 03/18/17 18:58 Course - Vital Signs Vital signs: Temp Pulse Resp BP Pulse Ox 98.2 F 122 H 20 124/71 100 03/18/17 18:58 03/18/17 18:58 03/18/17 18:58 03/18/17 18:58 03/18/17 18:58
[2017-03-18] MEDS ORDERED: NORMAL SALINE 1000 ML 1,000 ML IV ONE (19:21)
[2017-03-18] MEDS ORDERED: ZIPRASIDONE HCL 40 MG CAPSULE PO ONE (19:27)
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
[2017-03-18 20:16] LABS: ABSOLUTE BASOPHILS # (AUTO) 0.1 10^3/uL (0.0-0.2); ABSOLUTE EOSINOPHILS # (AUTO) 0.1 10^3/uL (0.0-0.6); ABSOLUTE MONOCYTES (AUTO) 1.1 10^3/uL (0.1-1.4); ABSOLUTE NEUT (AUTO) 7.5 10^3/uL (1.7-8.2); BASOPHILS % (AUTO) 0.9 % (0-2); EOSINOPHILS % (AUTO) 0.9 % (0-6); HEMATOCRIT 40.8 % (36.0-47.0); HEMOGLOBIN 13.9 g/dL (12.0-15.5); LYMPHOCYTES % (AUTO) 18.8 % (13-45); MEAN CORPUSCULAR HEMOGLOBIN 31.4 pg (27.0-33.4); MEAN CORPUSCULAR HGB CONC 34.1 g/dL (32.0-36.0); MEAN CORPUSCULAR VOLUME 92 fl (80-97); MONOCYTES % (AUTO) 10.3 % (3-13); PLATELET COUNT 199 10^3/uL (150-450); RED BLOOD COUNT 4.43 10^6/uL (3.72-5.28); RED CELL DISTRIBUTION WIDTH 13.7 % (11.5-14.0); SEGMENTED NEUTROPHILS % (AUTO) 69.1 % (42-78); TOTAL CELLS COUNTED % (AUTO) 100 %; WHITE BLOOD COUNT 10.8 10^3/uL (4.0-10.5)
[2017-03-18 20:46] LABS: APPEARANCE,URINE CLEAR; BILIRUBIN,URINE NEGATIVE (NEGATIVE); COLOR,URINE STRAW; GLUCOSE, URINE NEGATIVE (NEGATIVE); KETONES,URINE NEGATIVE (NEGATIVE); LEUKOCYTE ESTERASE,URINE NEGATIVE (NEGATIVE); NITRITE,URINE NEGATIVE (NEGATIVE); PROTEIN,URINE NEGATIVE (NEGATIVE); URINE SPECIFIC GRAVITY 1.001; UROBILINOGEN,URINE NEGATIVE mg/dL (<2.0)
[2017-03-18 20:47] LABS: ALANINE AMINOTRANSFERASE 20 U/L (9-52); ALBUMIN 4.9 g/dL (3.5-5.0); ALKALINE PHOSPHATASE 54 U/L (38-126); ANION GAP 16 (5-19); ASPARTATE AMINO TRANSFERASE 25 U/L (14-36); BILIRUBIN,DIRECT 0.2 mg/dL (0.0-0.4); BILIRUBIN,TOTAL 0.3 mg/dL (0.2-1.3); BLOOD UREA NITROGEN 15 mg/dL (7-20); CALCIUM 10.3 mg/dL (8.4-10.2); CARBON DIOXIDE 26 mmol/L (22-30); CHLORIDE 104 mmol/L (98-107); GLUCOSE 105 mg/dL (75-110); SODIUM 145.6 mmol/L (137-145); TOTAL PROTEIN 8.1 g/dL (6.3-8.2)
[2017-03-18 20:52] LABS: ACETAMINOPHEN < 10 ug/mL (10-30)
[2017-03-18 21:14] LABS: URINE AMPHETAMINES SCREEN NEGATIVE; URINE BARBITURATES SCREEN NEGATIVE; URINE BENZODIAZEPINES SCREEN NEGATIVE; URINE COCAINE SCREEN NEGATIVE; URINE MARIJUANA (THC) SCREEN UNCONFIRMED POSITIVE; URINE METHADONE SCREEN NEGATIVE; URINE PHENCYCLIDINE SCREEN NEGATIVE
[2017-03-18] MEDS ORDERED: LORAZEPAM 1 MG TABLET PO ONE (21:48)
[2017-03-18] MEDS ORDERED: DIPHENHYDRAMINE HCL 50 MG CAPSULE PO ONE (21:48)
[2017-03-18] MEDS ORDERED: RISPERIDONE 1 MG TABLET PO ONE (21:48)
[2017-03-18] MEDS ORDERED: HALOPERIDOL LACTATE INJ 5 MG/1 ML VIAL IM ONE (22:26)
--- NOTE | 2017-03-19 09:27 | ER Document Report ---
Doctor's Note Notes: 03/19/17 09:23 22-year-old female with a past medical history of schizophrenia supposedly noncompliant with medications with suicidal ideations for 2 days. Initially the patient was tachycardic. A TSH was ordered which appears to be abnormal. I have added a T3 and T4. I have also added an aspirin level given that one was not performed. Patient is not vital signs have improved. We are awaiting psychiatry evaluation and placement. 03/19/17 14:03 Patient has slept since last evening and states she feels much better. Psychiatry has seen and evaluated the patient and the expert opinion they would like to recind the IVC paperwork as they believe that the patient is at her baseline. Patient does agree to return with any new or worsening symptoms. She currently denies any auditory or visual hallucinations. She denies any suicidal or homicidal ideations. She states that she intermittently takes the medications as prescribed. She states that she has the medications and does not need a refill at this time. She promises to take the medications as prescribed if we let her leave at this time. She is followed by [facility]. Given the expert psychology recommendation, currently with no suicidal or homicidal ideations, no auditory or visual hallucinations, patient will be discharged home with strict return precautions and follow-up with [facility]. T3 and T4 as recorded. Aspirin level as recorded.
[2017-03-19 10:49] LABS: FREE T3 4.24 pg/mL (2.77-5.27); FREE T4 (FREE THYROXINE) 1.26 ng/dL (0.78-2.19)
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
[2017-03-19 14:16] VITALS: BP 102/71
[2017-03-19] MEDS ORDERED: HALOPERIDOL 2 MG TABLET PO ONE (14:20)
== END 2017-03-19 14:25 | disposition home or self-care (01) ==
LOC: ER 18:49
DX: F31.9 Bipolar disorder, unspecified (principal); R45.851 Suicidal ideations; F20.9 Schizophrenia, unspecified; F17.200 Nicotine dependence, unspecified, uncomplicated; Z87.442 Personal history of urinary calculi; F12.99 Cannabis use, unspecified with unspecified cannabis-induced disorder
CPT/HCPCS: 99285; 96360; 36415; 84439; 80307 ×3; 84443; 85025; 81025; 80053; 81001; 84481; J3490; J7030

== ENCOUNTER 2017-03-22 21:07 | Emergency (ER) | payer SELFPAY ==
--- NOTE | 2017-03-22 21:52 | ER Document Report ---
ED Medical Screen (RME) - General Chief Complaint: Syncope Stated Complaint: WEAKNESS Time Seen by Provider: 03/22/17 21:49 Mode of Arrival: Wheelchair Information source: Patient Notes: Patient is a 22-year-old female who presents to the ER today for feeling weak and passing out after smoking some weed that she thinks was laced with cocaine. She denies any chest pain, shortness of breath. Patient does appear intoxicated/under the influence of something. TRAVEL OUTSIDE OF THE [place] IN LAST 30 DAYS: No - Related Data Allergies/Adverse Reactions: No Known Allergies Allergy (Verified 03/22/17 21:46) Past Medical History - General Information source: Patient - Social History Frequency of alcohol use: Social Drug Abuse: Marijuana Endocrine Medical History: Denies: Hx Diabetes Mellitus Type 2 Renal/ Medical History: Reports: Hx Kidney Stones, Hx Pelvic Inflammatory Disease. Denies: Hx Peritoneal Dialysis Skin Medical History: Reports Hx Cellulitis Psychiatric Medical History: Reports: Hx Bipolar Disorder - Immunizations Hx Diphtheria, Pertussis, Tetanus Vaccination: Yes Review of Systems - Review of Systems Neurological/Psychological: See HPI Physical Exam - Vital signs Vitals: Temp Pulse Resp BP Pulse Ox 98.8 F 123 H 20 127/82 H 98 03/22/17 21:12 03/22/17 21:12 03/22/17 21:12 03/22/17 21:12 03/22/17 21:12 - Notes Notes: General: No acute distress Cardiovascular: Tachycardic, regular rhythm Psych: does answer questions but is sometimes slow to answer them Course - Vital Signs Vital signs: Temp Pulse Resp BP Pulse Ox 98.8 F 123 H 20 127/82 H 98 03/22/17 21:12 03/22/17 21:12 03/22/17 21:12 03/22/17 21:12 03/22/17 21:12
[2017-03-22 22:05] LABS: APPEARANCE,URINE SLIGHTLY-CLOUDY; BILIRUBIN,URINE NEGATIVE (NEGATIVE); COLOR,URINE YELLOW; GLUCOSE, URINE NEGATIVE (NEGATIVE); KETONES,URINE NEGATIVE (NEGATIVE); LEUKOCYTE ESTERASE,URINE TRACE (NEGATIVE); NITRITE,URINE NEGATIVE (NEGATIVE); PROTEIN,URINE NEGATIVE (NEGATIVE); URINE SPECIFIC GRAVITY 1.019
[2017-03-22 22:16] LABS: URINE AMPHETAMINES SCREEN NEGATIVE; URINE BARBITURATES SCREEN NEGATIVE; URINE BENZODIAZEPINES SCREEN NEGATIVE; URINE COCAINE SCREEN NEGATIVE; URINE MARIJUANA (THC) SCREEN UNCONFIRMED POSITIVE; URINE METHADONE SCREEN NEGATIVE; URINE PHENCYCLIDINE SCREEN NEGATIVE
[2017-03-22 22:29] LABS: ABSOLUTE EOSINOPHILS # (AUTO) 0.1 10^3/uL (0.0-0.6); ABSOLUTE LYMPHOCYTES (AUTO) 1.8 10^3/uL (0.5-4.7); ABSOLUTE MONOCYTES (AUTO) 0.7 10^3/uL (0.1-1.4); ABSOLUTE NEUT (AUTO) 6.6 10^3/uL (1.7-8.2); BASOPHILS % (AUTO) 0.5 % (0-2); EOSINOPHILS % (AUTO) 1.6 % (0-6); HEMATOCRIT 38.1 % (36.0-47.0); HEMOGLOBIN 12.9 g/dL (12.0-15.5); LYMPHOCYTES % (AUTO) 19.1 % (13-45); MEAN CORPUSCULAR HEMOGLOBIN 31.1 pg (27.0-33.4); MEAN CORPUSCULAR HGB CONC 33.7 g/dL (32.0-36.0); MEAN CORPUSCULAR VOLUME 92 fl (80-97); MONOCYTES % (AUTO) 7.1 % (3-13); PLATELET COUNT 188 10^3/uL (150-450); RED BLOOD COUNT 4.13 10^6/uL (3.72-5.28); RED CELL DISTRIBUTION WIDTH 13.5 % (11.5-14.0); SEGMENTED NEUTROPHILS % (AUTO) 71.7 % (42-78); TOTAL CELLS COUNTED % (AUTO) 100 %; WHITE BLOOD COUNT 9.2 10^3/uL (4.0-10.5)
[2017-03-22 22:44] LABS: ALANINE AMINOTRANSFERASE 24 U/L (9-52); ALBUMIN 4.7 g/dL (3.5-5.0); ALKALINE PHOSPHATASE 53 U/L (38-126); ANION GAP 11 (5-19); ASPARTATE AMINO TRANSFERASE 17 U/L (14-36); BILIRUBIN,DIRECT 0.2 mg/dL (0.0-0.4); BILIRUBIN,TOTAL 0.3 mg/dL (0.2-1.3); BLOOD UREA NITROGEN 13 mg/dL (7-20); CALCIUM 10.1 mg/dL (8.4-10.2); CARBON DIOXIDE 26 mmol/L (22-30); CHLORIDE 108 mmol/L (98-107); GLUCOSE 96 mg/dL (75-110); POTASSIUM 4.3 mmol/L (3.6-5.0); SODIUM 144.9 mmol/L (137-145); TOTAL PROTEIN 7.5 g/dL (6.3-8.2)
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
[2017-03-22 23:25] LABS: ACETAMINOPHEN < 10 ug/mL (10-30); ALCOHOL < 10 mg/dL (NONE DETECTED); SALICYLATE < 1.0 mg/dL (2.0-20.0)
--- NOTE | 2017-03-22 23:27 | EKG REPORT ---
SEVERITY:- OTHERWISE NORMAL ECG - SINUS TACHYCARDIA : Confirmed by: Ainsley Alvarenga 22-Mar-2017 23:26:11
[2017-03-23] MEDS ORDERED: RISPERIDONE 0.25 MG TABLET PO ONE (01:18)
[2017-03-23] MEDS ORDERED: HALOPERIDOL 5 MG TABLET PO ONE (01:24)
--- NOTE | 2017-03-23 11:05 | ER Document Report ---
Doctor's Note Notes: 03/23/17 11:04 Rounds: Chart reviewed and patient interviewed. Patient is being evaluated for unusual behavior and paranoia. Vital signs are normal. Lab studies were normal except for being positive for marijuana. Patient appears to be frightened and/or paranoid. Patient appears to be medically stable for transfer or discharge. Tory Powers MD
[2017-03-23] MEDS ORDERED: OLANZAPINE 5 MG TAB.RAPDIS PO ONE (11:25)
[2017-03-23] MEDS ORDERED: FLUOXETINE HCL 20 MG CAPSULE PO ONE (12:15)
[2017-03-23] MEDS ORDERED: BENZTROPINE MESYLATE 1 MG TABLET PO ONE (12:15)
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
[2017-03-24] MEDS: OLANZAPINE 5 MG TABLET PO SCH ×2 (10:36→17:57)
[2017-03-24] MEDS: FLUOXETINE HCL 20 MG CAPSULE PO SCH (10:36)
[2017-03-24] MEDS: BENZTROPINE MESYLATE 1 MG TABLET PO SCH (10:37)
[2017-03-24] MEDS ORDERED: CHLORPROMAZINE HCL INJ 25 MG/1 ML AMPULE IM ONE ×2 (12:33→13:01)
[2017-03-24] MEDS ORDERED: BENZTROPINE MESYLATE INJ 2 MG/2 ML AMPULE IM ONE (12:33)
[2017-03-24] MEDS ORDERED: CHLORPROMAZINE HCL 50 MG TABLET PO ONE (12:45)
[2017-03-24] MEDS ORDERED: BENZTROPINE MESYLATE 1 MG TABLET PO ONE (12:45)
--- NOTE | 2017-03-24 12:50 | ER Document Report ---
Doctor's Note Notes: 03/24/17 12:49 Patient becoming agitated, having persistent delusions, trying to leave her room , walking and other patient's rooms. Nursing staff requested hard restraints, when I examined the patient patient was agreeable to sitting on the end of her bed, not leaving her room, taking additional Thorazine and Cogentin by mouth rather than having a shot. Patient is aware that if she keeps walking and other patient's rooms she will be given medications as an injection for faster effect and also restrained so that she does not endanger other patients. Patient is agreeable to this plan at this time. 03/24/17 13:02 Patient spit her medications back into her milk rather than swallowing them. Patient was given her medications again this time she chewed them up and spent them back out into the milk. Medications have been changed from p.o. to IM. 03/24/17 19:06 Patient is much calmer, complains of possibility of an abscess on the right side of her mouth. Tooth 3. This appears to be broken but it does not appear to be recent, it is broken down to the gumline, edges are smooth, no erythema to the gum surrounding the tooth, just above the gumline there is what appears to be a granuloma but could potentially be infection, no evidence of abscess, no pus expressed when it is compressed. Patient will be started on penicillin for possible dental infection.
[2017-03-24] MEDS ORDERED: BENZTROPINE MESYLATE INJ 2 MG/2 ML AMPULE IM PRN (13:01)
--- NOTE | 2017-03-24 16:20 | PSYCHOLOGICAL NOTE ---
Psych Note - Psych Note Psych Note: Reason for Consult: Psychosis Consent Permissions:Josiane Leyva, mother, Marisol Leyva, sister in law [phone] 22-year-old female who denies any significant past psychiatric history presents with multiple complaints. She states the reason for coming to the emergency department is she felt like she might be getting kidnapped by somebody and found herself running away. She states he had been smoking marijuana with this person thought maybe it had been laced with something. Check in conducted with patient: Patient is still irritable. There is little change since patient's presentation. She is still verbalizing delusions. Chart review conducted: [id number] pt asked to speak with hospital thermostatic controls supervisor. Charge nurse was called over and pt stated she was leaving because she has rights. Pt was getting loud and stated she does not have to stay her and wants to know why it is taking so long to get placement. Pt stated she is leaving and will do what she wants. Pt was given a order of Thorzine and Congentin IM. Dr Purvis spoke with pt and advised we have medication PO as long as she will take she will change the order to PO. Pt requested medication with milk per Dr. Purvis this was acceptable. Pt was given medication PO and milk was poured in a cup.PT asked if nurse was stupid for pouring milk in cup. Pt acted like she took the medication the remaining milk was poured in the sink and medication was in the cup. Pt told nurse her right were being violated for taking her cup away. Pt was given one more opportunity to take the PO medications and she chewed the pill and spit it back in the water this time. Dr. Purvis was made aware and medication was changed back to IM. PT was given IM medication and pt was sitting in the bed with no further complications. 296.44 (F31.2) bipolar 1 disorder; with psychotic features Impression\plan: Patient is recommended to continue under IVC. Patient is demonstrating persecutory delusions. Patient is paranoid and her insight, judgment, impulse control are impaired. There has been little change in patient 's presentation however today patient was discovered to be hidding her medication instead of taking it. At this time it is possible the patient has been doing this with all her medications which would correlate with having no change in her presentation. patient will be reevaluated. Dr. Rasmussen was consulted and the care management of this patient; attending physician in agreement with recommendations and disposition.
[2017-03-25] MEDS: BENZTROPINE MESYLATE 1 MG TABLET PO SCH (09:10)
[2017-03-25] MEDS: FLUOXETINE HCL 20 MG CAPSULE PO SCH (09:10)
[2017-03-25] MEDS: OLANZAPINE 5 MG TABLET PO SCH (09:10)
[2017-03-25] MEDS: PENICILLIN V POTASSIUM 500 MG TABLET PO SCH ×2 (09:10→18:35)
[2017-03-25] MEDS ORDERED: ZIPRASIDONE MESYLATE INJ/PF 20 MG SDV IM PRN (12:33)
[2017-03-25] MEDS: HALOPERIDOL LACTATE INJ 5 MG/1 ML VIAL IM SCH ×2 (13:33→18:35)
--- NOTE | 2017-03-25 14:20 | ER Document Report ---
Doctor's Note Notes: 03/25/17 14:19 Rounds: Chart reviewed and patient interviewed. Patient is having some difficulty with her behavior today. She is continuing to have paranoid thoughts. Had to be temporarily restrained for a very short time this morning, but seems to be better now. Very subdued. Vital signs are all normal. No new lab studies to review. Patient appears to be medically stable for transfer or discharge. Tory Powers MD
[2017-03-25] MEDS: BENZTROPINE MESYLATE INJ 2 MG/2 ML AMPULE IM SCH (18:35)
--- NOTE | 2017-03-26 11:29 | ER Document Report ---
Doctor's Note Notes: 03/26/17 11:28 Patient has been seen and evaluated by psychiatry. Vital signs reviewed. She has had some intermittent tachycardia but it has been with activity or agitation. She is not tachycardic currently. She did have an isolated elevated blood pressure but again this is not at rest. There intent is to discharge the patient home on Haldol 5 mg p.o. twice daily and Cogentin 1 mg p.o. daily as well. They have requested Haldol decanoate 100 mg due to her history of noncompliance. They are ensuring she has a good discharge plan currently. I will write the prescriptions in the meanwhile for home.
[2017-03-26] MEDS ORDERED: HALOPERIDOL DECANOATE INJ 100 MG/1 ML VIAL IM ONE (11:37)
[2017-03-26] MEDS: PENICILLIN V POTASSIUM 500 MG TABLET PO SCH (11:41)
[2017-03-26] MEDS: BENZTROPINE MESYLATE INJ 2 MG/2 ML AMPULE IM SCH (11:42)
[2017-03-26] MEDS: HALOPERIDOL LACTATE INJ 5 MG/1 ML VIAL IM SCH (11:42)
--- NOTE | 2017-03-26 12:33 | PSYCHOLOGICAL NOTE ---
Psych Note - Psych Note Psych Note: Reason for Consult: Psychosis Consent Permissions:Josiane Leyva, mother, Marisol Leyva, sister in law [phone] 22-year-old female who denies any significant past psychiatric history presents with multiple complaints. She states the reason for coming to the emergency department is she felt like she might be getting kidnapped by somebody and found herself running away. She states he had been smoking marijuana with this person thought maybe it had been laced with something. Check in conducted with patient: Patient is still irritable. There is little change since patient's presentation. She is still verbalizing delusions. Chart review conducted: pt asked to use the telephone. after calling the first number she called 911 and stated," Can you go check on my daughter, I think she is in danger." this asked pt to hang up phone. pt refused to do so. security was called. this nurse attempted to remove the phone from the pt's hand and the pt would not let go. security arrived and pt dropped the phone. pt was asked to go back to her room. [employer] arrived and wanted to know why the pt called. pt explained to them that she was concerned about ehr daughter and wanted them to go to her house. [employer] explained to her that the [facility] would be the appropriate individuals to call. [employer] left and pt was demanding to know when she would be placed in a facility. The mental health team explained to her that they were looking for placement at this time. pt standing out in hallway and security asked her to step back in room. pt refused to do so and stated, " You might as well strap me down because I'm not going in there." pt attempted to run down the schultz. security assisted pt back to room and restraints were applied. notified of situation. 296.44 (F31.2) bipolar 1 disorder; with psychotic features Impression\\plan: Patient is recommended to continue under IVC. Patient is demonstrating persecutory delusions. Patient is paranoid and her insight, judgment, impulse control are impaired. There has been little change in patient 's presentation. New medication recommendations have been provided to attending physician. patient will be reevaluated. Dr. Rasmussen was consulted and the care management of this patient; attending physician in agreement with recommendations and disposition.
--- NOTE | 2017-03-26 12:41 | PSYCHOLOGICAL NOTE ---
Psych Note - Psych Note Psych Note: Reason for Consult: Psychosis Consent Permissions:Josiane Leyva, mother, Marisol Leyva, sister in law [phone] 22-year-old female who denies any significant past psychiatric history presents with multiple complaints. She states the reason for coming to the emergency department is she felt like she might be getting kidnapped by somebody and found herself running away. She states he had been smoking marijuana with this person thought maybe it had been laced with something. Check in conducted with patient: Patient is calm resting on her bed. Patient disclosed her arm is sore from receiving shots. Patient states she is "fine" with following up with outpatient and stated she would take the oral medication and follow up with outpatient mental health services. Chart review conducted: Evening staff report patient was calm all night no concerns are noted. Patient did make phone call to her mother verbalizing patient's fixed delusions i.e. checking on the safety of her daughter, accusing her mother of sleeping with patient's ex-boyfriend, stating the patient's mother is under the influence. Patient was easily redirected and calmed. 296.44 (F31.2) bipolar 1 disorder; with psychotic features Impression\\plan: Patient is recommended for rescind of IVC and considered psychiatrically clear. patient is demonstrating fixed delusions and is considered at baseline. Patient is demonstrating improvement in presentation i.e. calm and redirectable. Patient has been recommended to receive a Haldol Decanoate shot to help assist with symptoms over the next 3-4 weeks in addition to her oral medications. Referrals to both [facility] and [facility] have been submitted in attempt to get additional services for the patient ([facility]). Dr. Rasmussen was consulted and the care management of this patient; attending physician in agreement with recommendations and disposition.
[2017-03-26 14:10] VITALS: BP 117/87
== END 2017-03-26 14:00 | disposition home or self-care (01) ==
LOC: ER 21:07
DX: R55 Syncope and collapse (principal); R53.1 Weakness; F22 Delusional disorders; F19.10 Other psychoactive substance abuse, uncomplicated; F31.9 Bipolar disorder, unspecified; F17.200 Nicotine dependence, unspecified, uncomplicated
CPT/HCPCS: 93005; 99285; 96372; 36415; 80307 ×4; 85025; 81025; 80053; 81001; 84484; 93010; J0515; J1631; J1630; J3230; J3490

== ENCOUNTER 2017-07-08 22:39 | Emergency (ER) | payer SELFPAY ==
[2017-07-08 23:25] LABS: APPEARANCE,URINE CLEAR; BILIRUBIN,URINE NEGATIVE (NEGATIVE); COLOR,URINE YELLOW; GLUCOSE, URINE NEGATIVE (NEGATIVE); KETONES,URINE TRACE mg/dL (NEGATIVE); LEUKOCYTE ESTERASE,URINE NEGATIVE (NEGATIVE); NITRITE,URINE NEGATIVE (NEGATIVE); PROTEIN,URINE 30 mg/dL (NEGATIVE)
== END 2017-07-09 00:15 | disposition left against medical advice (07) ==
LOC: ER 22:39
DX: Z53.21 Procedure and treatment not carried out due to patient leaving prior to being seen by health care provider (principal); R10.9 Unspecified abdominal pain
CPT/HCPCS: 36415; 81001; 81025; 99282

== ENCOUNTER 2017-07-28 10:23 | Emergency (ER) | payer SELFPAY ==
[2017-07-28] MEDS ORDERED: METOCLOPRAMIDE HCL INJ/PF 10 MG/2 ML SDV IV ONE (10:33)
[2017-07-28] MEDS ORDERED: NORMAL SALINE 1000 ML 1,000 ML IV ONE (10:33)
--- NOTE | 2017-07-28 10:40 | ER Document Report ---
ED General - General Chief Complaint: Nausea/Vomiting Stated Complaint: VOMITING Time Seen by Provider: 07/28/17 10:33 Mode of Arrival: Wheelchair Information source: Patient Notes: 22-year-old female history of kidney stones kidney infection presents with complaints of left flank pain feeling warm nausea vomiting of 2 day duration. Patient notes increased urinary frequency, patient was also exposed to gonorrhea was treated with a shot of Rocephin and was given azithromycin but notes she was unable to hold the pills down. TRAVEL OUTSIDE OF THE [place] IN LAST 30 DAYS: No - HPI Onset: Yesterday Onset/Duration: Persistent, Waxing and waning Quality of pain: Achy Severity: Mild Pain Level: 2 Associated symptoms: Nausea, Vomiting, Other Exacerbated by: Movement Relieved by: Denies Similar symptoms previously: Yes Recently seen / treated by doctor: No - Related Data Allergies/Adverse Reactions: No Known Allergies Allergy (Verified 07/28/17 10:29) Past Medical History - Social History Smoking Status: Never Smoker Cigarette use (# per day): No Chew tobacco use (# tins/day): No Smoking Education Provided: No Family History: Reviewed & Not Pertinent, Other - Father Hx of Schizophrenia Endocrine Medical History: Denies: Hx Diabetes Mellitus Type 2 Renal/ Medical History: Reports: Hx Kidney Stones, Hx Pelvic Inflammatory Disease. Denies: Hx Peritoneal Dialysis Skin Medical History: Reports Hx Cellulitis Psychiatric Medical History: Reports: Hx Bipolar Disorder, Hx Schizophrenia - Immunizations Hx Diphtheria, Pertussis, Tetanus Vaccination: Yes Review of Systems - Review of Systems Notes: REVIEW OF SYSTEMS: CONSTITUTIONAL : Denies fever, chills, or sweats. Denies recent illness. EENT: Denies eye, ear, throat, or mouth pain or symptoms. Denies nasal or sinus congestion or discharge. Denies throat, tongue, or mouth swelling or difficulty swallowing. CARDIOVASCULAR: Denies chest pain. Denies palpitations or racing or irregular heart beat. Denies ankle edema. RESPIRATORY: Denies cough, cold, or chest congestion. Denies shortness of breath, difficulty breathing, or wheezing. GASTROINTESTINAL: admits to nausea vomiting GENITOURINARY: Dadmits to urinary frequency FEMALE GENITOURINARY: Denies vaginal bleeding, heavy or abnormal periods, irregular periods. Denies vaginal discharge or odor. MUSCULOSKELETAL: Denies back or neck pain or stiffness. Denies joint pain or swelling. SKIN: Denies rash, lesions or sores. HEMATOLOGIC : Denies easy bruising or bleeding. LYMPHATIC: Denies swollen, enlarged glands. NEUROLOGICAL: Denies confusion or altered mental status. Denies passing out or loss of consciousness. Denies dizziness or lightheadedness. Denies headache. Denies weakness or paralysis or loss of use of either side. Denies problems with gait or speech. Denies sensory loss, numbness, or tingling. Denies seizures. PSYCHIATRIC: Denies anxiety or stress. Denies depression, suicidal ideation, or homicidal ideation. ALL OTHER SYSTEMS REVIEWED AND NEGATIVE. PHYSICAL EXAMINATION: GENERAL: Well-appearing, well-nourished and in no acute distress. Patient is intermittently vomiting HEAD: Atraumatic, normocephalic. EYES: Pupils equal round and reactive to light, extraocular movements intact, conjunctiva are normal. ENT: Nares patent, oropharynx clear without exudates. Moist mucous membranes. NECK: Normal range of motion, supple without lymphadenopathy LUNGS: Breath sounds clear to auscultation bilaterally and equal. No wheezes rales or rhonchi. HEART: Regular rate and rhythm without murmurs ABDOMEN: Soft, nontender, nondistended abdomen. No guarding, no rebound. No masses appreciated. Mild left CVA tenderness Female : deferred Musculoskeletal: Normal range of motion, no pitting or edema. No cyanosis. NEUROLOGICAL: Cranial nerves grossly intact. Normal speech, normal gait. Normal sensory, motor exams PSYCH: Normal mood, normal affect. SKIN: Warm, Dry, normal turgor, no rashes or lesions noted. Dictation was performed using [employer] voice recognition software Physical Exam - Vital signs Vitals: Temp Pulse Resp BP Pulse Ox 98.5 F 83 12 109/73 99 07/28/17 10:26 07/28/17 10:26 07/28/17 10:26 07/28/17 10:26 07/28/17 10:26 Course - Re-evaluation Re-evalutation: 07/28/17 10:40 Urinalysis lab work pending, patient has probable pyelo 07/28/17 12:23 Urinalysis noted no significant abnormality, mother does request a treatment with antibiotics nonetheless. Her nausea is under control she had mild hypernatremia was given fluids and is otherwise well-appearing stable After performing a Medical Screening Examination, I estimate there is LOW risk for ACUTE APPENDICITIS, BOWEL OBSTRUCTION, ACUTE CHOLECYSTITIS, PERFORATED DIVERTICULITIS, INCARCERATED HERNIA, PANCREATITIS, PELVIC INFLAMMATORY DISEASE, PERFORATED ULCER, ECTOPIC , or TUBO-OVARIAN ABSCESS, thus I consider the discharge disposition reasonable. Also, there is no evidence or peritonitis , sepsis, or toxicity. I have reevaluated this patient multiple times and no significant life threatening changes are noted. The patient and I have discussed the diagnosis and risks, and we agree with discharging home with close follow-up with the understanding that symptoms and presentations can change. We also discussed returning to the Emergency Department immediately if new or worsening symptoms occur. We have discussed the symptoms which are most concerning (e.g., bloody stool, fever, changing or worsening pain, vomiting) that necessitate immediate return. - Vital Signs Vital signs: Temp Pulse Resp BP Pulse Ox 98.5 F 83 12 109/73 99 07/28/17 10:26 07/28/17 10:26 07/28/17 10:26 07/28/17 10:26 07/28/17 10:26 - Laboratory Result Diagrams: 07/28/17 10:54 07/28/17 10:54 Laboratory results interpreted by me: 07/28/17 07/28/17 10:44 10:54 Sodium 151.0 H Chloride 108 H Calcium 10.3 H Total Protein 8.5 H Albumin 5.1 H Urine Urobilinogen 2.0 H Ur Leukocyte Esterase TRACE H Discharge - Discharge Clinical Impression: Dehydration Nausea & vomiting Qualifiers: Vomiting type: unspecified Vomiting Intractability: non-intractable Qualified Code(s): R11.2 - Nausea with vomiting, unspecified Condition: Stable Disposition: HOME, SELF-CARE Instructions: Vomiting ([facility]) Additional Instructions: Follow up with your physician tomorrow for further care or return to the ED IMMEDIATELY if symptoms worsen or new concerns occur. If you cannot afford to follow up with your primary care physician a list of low cost clinics have been provided at the end of your discharge papers as well. Prescriptions: Cephalexin Monohydrate [Keflex 500 mg Capsule] 500 mg PO BID 5 Days capsule Metoclopramide HCl [Reglan 10 mg Tablet] 1 - 2 tab PO Q6 #25 tablet
[2017-07-28 11:15] LABS: ABSOLUTE BASOPHILS # (AUTO) 0.1 10^3/uL (0.0-0.2); ABSOLUTE EOSINOPHILS # (AUTO) 0.3 10^3/uL (0.0-0.6); ABSOLUTE LYMPHOCYTES (AUTO) 1.7 10^3/uL (0.5-4.7); ABSOLUTE MONOCYTES (AUTO) 0.3 10^3/uL (0.1-1.4); ABSOLUTE NEUT (AUTO) 2.8 10^3/uL (1.7-8.2); BASOPHILS % (AUTO) 1.3 % (0-2); EOSINOPHILS % (AUTO) 5.1 % (0-6); HEMATOCRIT 44.9 % (36.0-47.0); HEMOGLOBIN 15.2 g/dL (12.0-15.5); LYMPHOCYTES % (AUTO) 33.3 % (13-45); MEAN CORPUSCULAR HEMOGLOBIN 30.6 pg (27.0-33.4); MEAN CORPUSCULAR HGB CONC 33.9 g/dL (32.0-36.0); MEAN CORPUSCULAR VOLUME 90 fl (80-97); MONOCYTES % (AUTO) 5.6 % (3-13); PLATELET COUNT 242 10^3/uL (150-450); RED BLOOD COUNT 4.97 10^6/uL (3.72-5.28); RED CELL DISTRIBUTION WIDTH 13.2 % (11.5-14.0); SEGMENTED NEUTROPHILS % (AUTO) 54.7 % (42-78); TOTAL CELLS COUNTED % (AUTO) 100 %; WHITE BLOOD COUNT 5.1 10^3/uL (4.0-10.5)
[2017-07-28 11:26] LABS: APPEARANCE,URINE CLOUDY; BILIRUBIN,URINE NEGATIVE (NEGATIVE); COLOR,URINE YELLOW; GLUCOSE, URINE NEGATIVE (NEGATIVE); KETONES,URINE NEGATIVE (NEGATIVE); LEUKOCYTE ESTERASE,URINE TRACE (NEGATIVE); NITRITE,URINE NEGATIVE (NEGATIVE); PROTEIN,URINE NEGATIVE (NEGATIVE); URINE SPECIFIC GRAVITY 1.024
[2017-07-28] MEDS ORDERED: AZITHROMYCIN 1 GM SUSP PACKET PO ONE (11:30)
[2017-07-28 11:34] LABS: ALANINE AMINOTRANSFERASE 22 U/L (9-52); ALBUMIN 5.1 g/dL (3.5-5.0); ALKALINE PHOSPHATASE 58 U/L (38-126); ANION GAP 16 (5-19); ASPARTATE AMINO TRANSFERASE 20 U/L (14-36); BILIRUBIN,DIRECT 0.2 mg/dL (0.0-0.4); BILIRUBIN,TOTAL 0.3 mg/dL (0.2-1.3); BLOOD UREA NITROGEN 10 mg/dL (7-20); CALCIUM 10.3 mg/dL (8.4-10.2); CARBON DIOXIDE 27 mmol/L (22-30); CHLORIDE 108 mmol/L (98-107); GLUCOSE 91 mg/dL (75-110); POTASSIUM 4.6 mmol/L (3.6-5.0); TOTAL PROTEIN 8.5 g/dL (6.3-8.2)
[2017-07-28 12:25] VITALS: BP 110/69
== END 2017-07-28 12:30 | disposition home or self-care (01) ==
LOC: ER 10:23
DX: R11.2 Nausea with vomiting, unspecified (principal); E86.0 Dehydration; E87.0 Hyperosmolality and hypernatremia; R10.9 Unspecified abdominal pain; Z87.442 Personal history of urinary calculi
CPT/HCPCS: 99284; 96361; 96374; 36415; 87086; 84703; 85025; 80053; 81001; Q0144; J2765; J7030

== ENCOUNTER 2017-10-25 08:37 | Emergency (ER) | payer SELFPAY ==
[2017-10-25] MEDS ORDERED: ACETAMINOPHEN 325 MG TABLET PO ONE (09:13)
[2017-10-25] MEDS ORDERED: PSEUDOEPHEDRINE HCL 30 MG TABLET PO ONE (09:13)
--- NOTE | 2017-10-25 09:14 | ER Document Report ---
HPI - HPI Patient complains to provider of: Cold symptoms Onset: Other - 2 weeks Onset/Duration: Persistent Quality of pain: Achy Pain Level: 5 Context: Patient presents complaining of productive cough for the past 2 weeks with body aches. Patient's had congestion for the past 4 days with sore throat. Patient is uncertain if she may have had a fever. Associated Symptoms: Body/muscle aches, Productive cough, Rhinnorhea, Sinus pain /drainage, Sore throat Exacerbated by: Denies Relieved by: Denies Similar symptoms previously: No Recently seen / treated by doctor: No - ROS ROS below otherwise negative: Yes Systems Reviewed and Negative: Yes All other systems reviewed and negative - CONSTITUTIONAL Constitutional: REPORTS: Chills - EENT EENT: REPORTS: Sore Throat, Ear Pain - NEURO Neurology: REPORTS: Headache - r/t sinus pressure. DENIES: Weakness, Vision blurred - RESPIRATORY Respiratory: REPORTS: Coughing - GASTROINTESTINAL Gastrointestinal: DENIES: Nausea, Patient vomiting - REPRODUCTIVE Reproductive: DENIES: : - MUSCULOSKELETAL Musculoskeletal: DENIES: Back Pain, Neck Pain - DERM Skin Color: Normal Skin Problems: None Past Medical History - General Information source: Patient - Social History Smoking Status: Current Every Day Smoker Chew tobacco use (# tins/day): No Smoking Education Provided: Yes Frequency of alcohol use: Occasional Drug Abuse: Marijuana Occupation: None Family History: Reviewed & Not Pertinent, Other - Father Hx of Schizophrenia Patient has suicidal ideation: No Patient has homicidal ideation: No Endocrine Medical History: Denies: Hx Diabetes Mellitus Type 2 Renal/ Medical History: Reports: Hx Kidney Stones, Hx Pelvic Inflammatory Disease. Denies: Hx Peritoneal Dialysis Skin Medical History: Reports Hx Cellulitis Psychiatric Medical History: Reports: Hx Bipolar Disorder, Hx Schizophrenia Past Surgical History: Reports: Hx Gynecologic Surgery - D & C - Immunizations Hx Diphtheria, Pertussis, Tetanus Vaccination: Yes Vertical Provider Document - CONSTITUTIONAL Agree With Documented VS: Yes Exam Limitations: No Limitations General Appearance: WD/WN, No Apparent Distress - INFECTION CONTROL TRAVEL OUTSIDE OF THE [place] IN LAST 30 DAYS: No - HEENT HEENT: Atraumatic, Normocephalic, Pharyngeal Tenderness, Pharyngeal Erythema. negative: Pharyngeal Exudate, Tympanic Membrane Red, Tympanic Membrane Bulging Notes: clear rhinorrhea - NECK Neck: Normal Inspection, Supple. negative: Lymphadenopathy-Left, Lymphadenopathy-Right - RESPIRATORY Respiratory: Breath Sounds Normal, No Respiratory Distress, Chest Non-Tender - CARDIOVASCULAR Cardiovascular: Regular Rhythm, No Murmur, Tachycardia - BACK Back: Normal Inspection - MUSCULOSKELETAL/EXTREMETIES Musculoskeletal/Extremeties: SUZANNA LOPEZ - NEURO Level of Consciousness: Awake, Alert, Appropriate Motor/Sensory: No Motor Deficit - DERM Integumentary: Warm, Dry, No Rash Course - Re-evaluation Re-evalutation: 10/25/17 Strep test negative, chest x-ray without any findings worrisome for pneumonia. Suspect viral etiology at this time. Patient's respirations even and unlabored , patient nontoxic in appearance. Discussed plan of care with patient, patient verbalized understanding and is agreeable to discharge at this time. - Vital Signs Vital signs: Temp Pulse Resp BP Pulse Ox 98.6 F 105 H 20 101/67 99 10/25/17 08:49 10/25/17 08:49 10/25/17 08:49 10/25/17 08:49 10/25/17 08:49 - Laboratory Laboratory results interpreted by me: 10/25/17 10:14 Labs- Entire Visit 10/25/17 09:23 Group A Strep Rapid NEGATIVE - Diagnostic Test Radiology reviewed: Reports reviewed Discharge - Discharge Clinical Impression: Nasal congestion, Sore throat Upper respiratory infection Qualifiers: URI type: unspecified URI Qualified Code(s): J06.9 - Acute upper respiratory infection, unspecified Condition: Stable Disposition: HOME, SELF-CARE Instructions: Sore Throat ([facility]), Upper Respiratory Illness ([facility]) Additional Instructions: Return immediately for any new or worsening symptoms Followup with your primary care provider, call tomorrow to make a followup appointment Prescriptions: Benzonatate [Tessalon Perle 100 mg Capsule] 100 mg PO Q8HP PRN #20 cap PRN Reason: Guaifenesin/Pseudoephedrne HCl [Mucinex D ER Tablet] 1 each PO BID PRN #12 tab.er.12h PRN Reason: Naproxen [Naprosyn 250 Nmg Tablet] 1 tab PO BID #14 tablet Forms: Smoking Cessation Education Referrals: [facility] [Provider Group] - Follow up as needed
--- NOTE | 2017-10-25 10:06 | RADIOLOGY REPORT (SQ) ---
EXAM DESCRIPTION: CHEST 2 VIEWS COMPLETED DATE/TIME: 10/25/2017 9:50 am REASON FOR STUDY: cough COMPARISON: None. EXAM PARAMETERS: NUMBER OF VIEWS: two views TECHNIQUE: Digital Frontal and Lateral radiographic views of the chest acquired. RADIATION DOSE: NA LIMITATIONS: none FINDINGS: LUNGS AND PLEURA: No opacities, masses or pneumothorax. No pleural effusion. MEDIASTINUM AND HILAR STRUCTURES: No masses or contour abnormalities. HEART AND VASCULAR STRUCTURES: Heart normal size. No evidence for failure. BONES: No acute findings. HARDWARE: None in the chest. OTHER: No other significant finding. IMPRESSION: NO ACUTE RADIOGRAPHIC FINDING IN THE CHEST. TECHNICAL DOCUMENTATION: JOB ID: [id number] [employer]- All Rights Reserved Reading location - IP/workstation name: [email or web address]
[2017-10-25 10:24] VITALS: BP 104/69
== END 2017-10-25 10:25 | disposition home or self-care (01) ==
LOC: ER 08:37
DX: J06.9 Acute upper respiratory infection, unspecified (principal); M79.1 Myalgia; F17.200 Nicotine dependence, unspecified, uncomplicated; E11.9 Type 2 diabetes mellitus without complications; Z87.442 Personal history of urinary calculi
CPT/HCPCS: 71046; 87070; 87880; 99283

== ENCOUNTER 2018-03-14 11:25 | Emergency (ER) | payer SELFPAY ==
[2018-03-14] MEDS ORDERED: NORMAL SALINE 1000 ML 1,000 ML IV ONE (11:56)
--- NOTE | 2018-03-14 11:58 | ER Document Report ---
ED Medical Screen (RME) - General Chief Complaint: Anxiety Stated Complaint: ANXIETY Time Seen by Provider: 03/14/18 11:53 Mode of Arrival: Ambulatory Information source: Patient Notes: 23 years old female with a history of bipolar disorder, presents today with rapid heartbeat and chest heaviness. She claims that she was at a birthday constitution party this morning, very first time in life she smoked cannabis. After that started having rapid heartbeat. She appears anxious and rapid heartbeat noted. TRAVEL OUTSIDE OF THE [place] IN LAST 30 DAYS: No - Related Data Allergies/Adverse Reactions: No Known Allergies Allergy (Verified 03/14/18 11:28) Past Medical History - Social History Frequency of alcohol use: Occasional Drug Abuse: Marijuana Endocrine Medical History: Denies: Hx Diabetes Mellitus Type 2 Renal/ Medical History: Reports: Hx Kidney Stones, Hx Pelvic Inflammatory Disease. Denies: Hx Peritoneal Dialysis Skin Medical History: Reports Hx Cellulitis Psychiatric Medical History: Reports: Hx Bipolar Disorder, Hx Schizophrenia Past Surgical History: Reports: Hx Gynecologic Surgery - D & C - Immunizations Hx Diphtheria, Pertussis, Tetanus Vaccination: Yes Physical Exam - Vital signs Vitals: Temp Pulse Resp BP Pulse Ox 98.4 F 123 H 20 131/90 H 100 03/14/18 11:44 03/14/18 11:44 03/14/18 11:44 03/14/18 11:44 03/14/18 11:44 Course - Vital Signs Vital signs: Temp Pulse Resp BP Pulse Ox 98.4 F 123 H 20 131/90 H 100 03/14/18 11:44 03/14/18 11:44 03/14/18 11:44 03/14/18 11:44 03/14/18 11:44 Doctor's Discharge - Discharge Instructions: Anxiety ([facility])
[2018-03-14 12:17] LABS: APPEARANCE,URINE SLIGHTLY-CLOUDY; BILIRUBIN,URINE NEGATIVE (NEGATIVE); COLOR,URINE YELLOW; GLUCOSE, URINE NEGATIVE (NEGATIVE); KETONES,URINE NEGATIVE (NEGATIVE); LEUKOCYTE ESTERASE,URINE TRACE (NEGATIVE); NITRITE,URINE NEGATIVE (NEGATIVE); PROTEIN,URINE NEGATIVE (NEGATIVE); URINE SPECIFIC GRAVITY 1.004; UROBILINOGEN,URINE NEGATIVE mg/dL (<2.0)
[2018-03-14 12:35] LABS: URINE AMPHETAMINES SCREEN NEGATIVE; URINE BARBITURATES SCREEN NEGATIVE; URINE BENZODIAZEPINES SCREEN NEGATIVE; URINE COCAINE SCREEN NEGATIVE; URINE MARIJUANA (THC) SCREEN UNCONFIRMED POSITIVE; URINE METHADONE SCREEN NEGATIVE; URINE PHENCYCLIDINE SCREEN NEGATIVE
[2018-03-14 12:43] LABS: ABSOLUTE BASOPHILS # (AUTO) 0.1 10^3/uL (0.0-0.2); ABSOLUTE EOSINOPHILS # (AUTO) 0.2 10^3/uL (0.0-0.6); ABSOLUTE LYMPHOCYTES (AUTO) 2.4 10^3/uL (0.5-4.7); ABSOLUTE MONOCYTES (AUTO) 0.5 10^3/uL (0.1-1.4); ABSOLUTE NEUT (AUTO) 5.4 10^3/uL (1.7-8.2); BASOPHILS % (AUTO) 0.7 % (0-2); EOSINOPHILS % (AUTO) 2.4 % (0-6); HEMATOCRIT 40.8 % (36.0-47.0); HEMOGLOBIN 14.1 g/dL (12.0-15.5); LYMPHOCYTES % (AUTO) 27.9 % (13-45); MEAN CORPUSCULAR HEMOGLOBIN 31.1 pg (27.0-33.4); MEAN CORPUSCULAR HGB CONC 34.6 g/dL (32.0-36.0); MEAN CORPUSCULAR VOLUME 90 fl (80-97); MONOCYTES % (AUTO) 6.2 % (3-13); PLATELET COUNT 263 10^3/uL (150-450); RED BLOOD COUNT 4.54 10^6/uL (3.72-5.28); SEGMENTED NEUTROPHILS % (AUTO) 62.8 % (42-78); TOTAL CELLS COUNTED % (AUTO) 100 %; WHITE BLOOD COUNT 8.7 10^3/uL (4.0-10.5)
[2018-03-14] MEDS ORDERED: LORAZEPAM INJ 2 MG/1 ML VIAL IV ONE (13:59)
--- NOTE | 2018-03-14 14:06 | ER Document Report ---
HPI - HPI Time Seen by Provider: 03/14/18 11:53 Pain Level: 0 Notes: Patient is a 23-year-old female with a history of bipolar and schizophrenia who presents to the emergency department complaining of palpitations, anxiety, and shortness of breath immediately after smoking marijuana for the first time about 2 hours ago. Patient states that since that time she has mostly recovered and is feeling much better than she was although will occasionally still feel palpitations. Patient does not have any SI/HI. She was smoking marijuana for the first time at a birthday alliance party. Denies any drug allergies. No other concerns or complaints. She denies any other drug abuse. Denies any prolonged immobilization, distance travel, recent surgery/trauma, personal cancer history, hormone use, smoking, or previous DVT/PE. Denies any headache, fever, neck pain, changes in vision/speech/mentation/hearing, URI, sore throat, chest pain, syncope, cough, wheeze, dyspnea, abdominal pain, nausea/vomiting/diarrhea, urinary retention, dysuria, hematuria, loss of control of bowel or bladder, numbness/tingling, saddle anesthesia, muscle paralysis/weakness, or rash. - ROS Systems Reviewed and Negative: Yes All other systems reviewed and negative - REPRODUCTIVE Reproductive: DENIES: : - DERM Skin Color: Normal Past Medical History - General Information source: Patient - Social History Smoking Status: Never Smoker Frequency of alcohol use: Occasional Drug Abuse: Marijuana Family History: Reviewed & Not Pertinent, Other - Father Hx of Schizophrenia Patient has suicidal ideation: No Patient has homicidal ideation: No Endocrine Medical History: Denies: Hx Diabetes Mellitus Type 2 Renal/ Medical History: Reports: Hx Kidney Stones, Hx Pelvic Inflammatory Disease. Denies: Hx Peritoneal Dialysis Skin Medical History: Reports Hx Cellulitis Psychiatric Medical History: Reports: Hx Bipolar Disorder, Hx Schizophrenia Past Surgical History: Reports: Hx Gynecologic Surgery - D & C - Immunizations Hx Diphtheria, Pertussis, Tetanus Vaccination: Yes Vertical Provider Document - CONSTITUTIONAL Agree With Documented VS: No - HR during my eval 96 Notes: PHYSICAL EXAMINATION: GENERAL: Well-appearing, well-nourished and in no acute distress. A&Ox4. answers questions appropriately. HEAD: Atraumatic, normocephalic. EYES: Pupils equal round and reactive to light, extraocular movements intact, sclera anicteric, conjunctiva are normal. ENT: Nares patent and without discharge. oropharynx clear without exudates. No tonsilar hypertrophy or erythema. Moist mucous membranes. NECK: Normal range of motion, supple without lymphadenopathy LUNGS: Breath sounds clear to auscultation bilaterally and equal. No wheezes rales or rhonchi. HEART: Regular rate and rhythm without murmurs, rubs, gallops. ABDOMEN: Soft, nontender, nondistended abdomen. No guarding, no rebound. No masses appreciated. Normal bowel sounds present. No CVA tenderness bilaterally . Musculoskeletal: FROM to passive/active. Strength 5+/5. Audrey neg. No asymmetry to LE's. Extremities: No cyanosis, clubbing, or edema b/l. Peripheral pulses 2+. Capillary refill less than 3 seconds. NEUROLOGICAL: Normal speech, normal gait. PSYCH: Normal mood, normal affect. SKIN: Warm, Dry, normal turgor, no rashes or lesions noted. - INFECTION CONTROL TRAVEL OUTSIDE OF THE [place] IN LAST 30 DAYS: No Course - Re-evaluation Re-evalutation: 03/14/18 14:09 Patient is an afebrile, well-hydrated, 22-year-old female who presents to the emergency department with anxiety secondary to cannabis intake. Vitals are currently acceptable without any significant tachycardia, tachypnea, or hypoxia. PE is otherwise unremarkable for any focal neurological deficits. CBC, urinalysis, hCG unremarkable. See drug results. Patient is nontoxic-appearing and is tolerating p.o. without difficulty. Patient has low DVT risk factors and had immediate symptoms after smoking cannabis. Patient states that she is feeling much better. Patient did receive a small dose of Ativan here in the em ergency department. Patient has a well score of 0 and is PERC negative with the HR during my eval and with the EKG. I did review with Dr. Powers who is in agreement with dispo/plan. No further labs or imaging warranted at this time. Low suspicion for any acute psychosis, ACS, PE, pneumothorax, pericarditis, dissection, respiratory compromise, severe dehydration, sepsis, meningitis, or other systemic emergent condition at this time. Patient is aware that her condition can change from initial presentation and she needs to monitor symptoms closely and seek medical attention for any acute changes. Patient to avoid smoking cannabis/marijuana. Risk and benefit thoroughly reviewed. Recommend conservative measures for symptoms. Recheck with your PCM in 3-5 days. Return to the ED with any worsening/concerning symptoms otherwise as reviewed in discharge. Patient is in agreement. No SI/HI. - Vital Signs Vital signs: Temp Pulse Resp BP Pulse Ox 98.4 F 123 H 20 131/90 H 100 03/14/18 11:44 03/14/18 11:44 03/14/18 11:44 03/14/18 11:44 03/14/18 11:44 - Laboratory Result Diagrams: 03/14/18 11:01 Laboratory results interpreted by me: 03/14/18 11:50 Ur Leukocyte Esterase TRACE H Discharge - Discharge Clinical Impression: Anxiousness, Drug abuse, marijuana Condition: Stable Disposition: HOME, SELF-CARE Instructions: Anxiety ([facility]) Additional Instructions: Maintain adequate fluid and food intake Take home medications as directed healthy diet Avoid drug use* Monitor blood pressure daily and keep a log Monitor symptoms for any acute changes Recheck with your PCM in 3-5 days Consider a follow-up with cardiology Return to the ED with any worsening symptoms and/or development of fever, headache, chest pain, palpitations, syncope, shortness of breath, trouble lucy thing, abdominal pain, n/v/d, blood in stool/urine, loss of control of bowel/bladder, urinary retention, muscle weakness/paralysis, numbness/tingling, or other worsening symptoms that are concerning to you. Forms: Elevated Blood Pressure Referrals: [facility] [Provider Group] - Follow up as needed [facility] [Provider Group] - Follow up as needed [facility] [Provider Group] - Follow up as needed
[2018-03-14 15:09] VITALS: BP 103/64
--- NOTE | 2018-03-14 15:51 | EKG REPORT ---
SEVERITY:- NORMAL ECG - SINUS RHYTHM : Confirmed by: Timo Brooks MD 14-Mar-2018 15:51:00
== END 2018-03-14 15:00 | disposition home or self-care (01) ==
LOC: ER 11:25
DX: F12.180 Cannabis abuse with cannabis-induced anxiety disorder (principal); R00.2 Palpitations; R06.02 Shortness of breath
CPT/HCPCS: 93005; 99283; 96361; 96374; 36415; 85025; 81025; 81001; 80307; 93010; J2060; J7030

== ENCOUNTER 2018-05-16 11:20 | Emergency (ER) | payer SELFPAY ==
[2018-05-16 11:26] VITALS: BP 119/74
[2018-05-16] MEDS ORDERED: PHENAZOPYRIDINE HCL 200 MG TABLET PO ONE (11:44)
--- NOTE | 2018-05-16 11:50 | ER Document Report ---
HPI - HPI Patient complains to provider of: pain with void Time Seen by Provider: 05/16/18 11:38 Onset: This morning Onset/Duration: Sudden Quality of pain: Burning Severity: Severe Pain Level: 4 Context: Patient presents emergency department with complaints of pain with void. She reports symptoms started this morning. Reports history of UTI in the past. Denies fever vomiting diarrhea. Denies vaginal discharge. Associated Symptoms: None Exacerbated by: Denies Relieved by: Denies Similar symptoms previously: No Recently seen / treated by doctor: No - CONSTITUTIONAL Constitutional: DENIES: Fever, Chills - EENT EENT: DENIES: Sore Throat, Ear Pain, Eye problems - NEURO Neurology: DENIES: Headache, Weakness, Vision blurred, Dizzinesss / Vertigo - CARDIOVASCULAR Cardiovascular: DENIES: Chest pain - RESPIRATORY Respiratory: DENIES: Trouble Breathing, Coughing - GASTROINTESTINAL Gastrointestinal: DENIES: Abdominal Pain, Black / Bloody Stools - URINARY Urinary: REPORTS: Dysuria, Frequency. DENIES: Urgency - REPRODUCTIVE Reproductive: REPORTS: Abnormal bleeding / discharge - discharge. DENIES: : - MUSCULOSKELETAL Musculoskeletal: DENIES: Extremity pain Past Medical History - General Information source: Patient - Social History Smoking Status: Current Every Day Smoker Cigarette use (# per day): Yes Chew tobacco use (# tins/day): No Frequency of alcohol use: None Drug Abuse: None Lives with: Family Family History: Reviewed & Not Pertinent, Other - Father Hx of Schizophrenia Patient has suicidal ideation: No Patient has homicidal ideation: No Endocrine Medical History: Denies: Hx Diabetes Mellitus Type 2 Renal/ Medical History: Reports: Hx Kidney Stones, Hx Pelvic Inflammatory Dise ase. Denies: Hx Peritoneal Dialysis Skin Medical History: Reports Hx Cellulitis Psychiatric Medical History: Reports: Hx Bipolar Disorder, Hx Schizophrenia Past Surgical History: Reports: Hx Gynecologic Surgery - D & C - Immunizations Hx Diphtheria, Pertussis, Tetanus Vaccination: Yes Vertical Provider Document - CONSTITUTIONAL Agree With Documented VS: Yes Exam Limitations: No Limitations General Appearance: WD/WN, No Apparent Distress - nontoxic looking - INFECTION CONTROL TRAVEL OUTSIDE OF THE [place] IN LAST 30 DAYS: No - HEENT HEENT: Atraumatic, Normocephalic - NECK Neck: Normal Inspection, Supple. negative: Lymphadenopathy-Left, Lymphadenop athy-Right - RESPIRATORY Respiratory: Breath Sounds Normal, No Respiratory Distress - CARDIOVASCULAR Cardiovascular: Regular Rate, Regular Rhythm - GI/ABDOMEN Gastrointestinal: Abdomen Soft, Abdomen Non-Tender - BACK Back: negative: CVA Tenderness-Right, CVA Tenderness-Left - MUSCULOSKELETAL/EXTREMETIES Musculoskeletal/Extremeties: SUZANNA LOPEZ - NEURO Level of Consciousness: Awake, Alert, Appropriate Motor/Sensory: No Motor Deficit - DERM Integumentary: Warm, Dry Course - Re-evaluation Re-evalutation: 05/16/18 UA with large amount of leuks positive for blood given patient symptoms she will be treated for UTI urine culture sent. Patient was instructed on medication. She was also instructed on the importance of follow-up with urology if this continues. She was also instructed on women's anatomy and how easy it is to get a UTI. She verbalized understanding to all instructions. Dictation of this chart was performed using voice recognition software; therefore, there may be some unintended grammatical errors. - Vital Signs Vital signs: Temp Pulse Resp BP Pulse Ox 98.3 F 106 H 16 119/74 100 05/16/18 11:25 05/16/18 11:25 05/16/18 11:25 05/16/18 11:25 05/16/18 11:25 Discharge - Discharge Clinical Impression: Dysuria, UTI (urinary tract infection) Condition: Stable Disposition: HOME, SELF-CARE Instructions: Cephalexin ([facility]), Urinary Anesthetic Agent ([facility]), Urinary Tract Infection ([facility]) Additional Instructions: *You have been evaluated for pain while voiding, UTI *Take medication as prescribed *Push fluids *Follow up with your primary care provider within one for a recheck *Return to ED for worsening condition, changes, needs, concerns Prescriptions: Cephalexin Monohydrate [Keflex 500 mg Capsule] 500 mg PO BID #10 capsule Phenazopyridine HCl [Pyridium 200 mg Tablet] 200 mg PO TID #15 tablet
[2018-05-16 11:51] LABS: APPEARANCE,URINE CLOUDY; BILIRUBIN,URINE NEGATIVE (NEGATIVE); COLOR,URINE YELLOW; GLUCOSE, URINE NEGATIVE (NEGATIVE); KETONES,URINE NEGATIVE (NEGATIVE); LEUKOCYTE ESTERASE,URINE LARGE (NEGATIVE); NITRITE,URINE NEGATIVE (NEGATIVE); PROTEIN,URINE 100 mg/dL (NEGATIVE)
== END 2018-05-16 12:30 | disposition home or self-care (01) ==
LOC: ER 11:20
DX: N39.0 Urinary tract infection, site not specified (principal); R31.9 Hematuria, unspecified; R30.0 Dysuria; R35.0 Frequency of micturition; N89.8 Other specified noninflammatory disorders of vagina; F17.210 Nicotine dependence, cigarettes, uncomplicated; Z87.442 Personal history of urinary calculi; Z87.42 Personal history of other diseases of the female genital tract
CPT/HCPCS: 99283; 87086; 87088; 81001; 87186; J3490

== ENCOUNTER 2018-06-15 12:11 | Emergency (ER) | payer SELFPAY ==
[2018-06-15] MEDS ORDERED: ONDANSETRON 4 MG TAB.RAPDIS PO ONE (12:42)
--- NOTE | 2018-06-15 12:45 | ER Document Report ---
ED General - General Chief Complaint: Abdominal Cramping Stated Complaint: BACK/STOMACH PAIN Time Seen by Provider: 06/15/18 12:34 Primary Care Provider: [facility] [Provider Group] - Follow up in 3-5 days TRAVEL OUTSIDE OF THE [place] IN LAST 30 DAYS: No - HPI Notes: Patient is a 23-year-old female with one previous who presents the emergency department with early approximately 4-5 weeks by menstruation complaining of intermittent lower pelvic abdominal cramping. Patient states that she had a positive urine test at home 2 days ago. She has intermittent nausea as well. She is urinating normally and having normal bowel movements. She has not noticed any vaginal bleeding, odor, or discharge. No other concerns or complaints. Denies any headache, fever, URI, sore throat, chest pain, palpitations, syncope, cough, shortness of breath, wheeze, dyspnea, current abdominal pain, nausea/vomiting/diarrhea, urinary retention, dysuria, hematuria, or rash. - Related Data Allergies/Adverse Reactions: No Known Allergies Allergy (Verified 06/15/18 12:18) Past Medical History - Social History Smoking Status: Current Some Day Smoker Chew tobacco use (# tins/day): No Frequency of alcohol use: None Drug Abuse: None Family History: Reviewed & Not Pertinent, Other - Father Hx of Schizophrenia Patient has suicidal ideation: No Patient has homicidal ideation: No Endocrine Medical History: Denies: Hx Diabetes Mellitus Type 2 Renal/ Medical History: Reports: Hx Kidney Stones, Hx Pelvic Inflammatory Disease. Denies: Hx Peritoneal Dialysis Skin Medical History: Reports Hx Cellulitis Psychiatric Medical History: Reports: Hx Bipolar Disorder, Hx Schizophrenia Past Surgical History: Reports: Hx Gynecologic Surgery - D & C - Immunizations Hx Diphtheria, Pertussis, Tetanus Vaccination: Yes Review of Systems - Review of Systems -: Yes All other systems reviewed and negative Physical Exam - Vital signs Vitals: Temp Pulse Resp BP Pulse Ox 99 F 114 H 18 123/85 99 06/15/18 12:26 06/15/18 12:26 06/15/18 12:26 06/15/18 12:26 06/15/18 12:26 - Notes Notes: PHYSICAL EXAMINATION: GENERAL: Well-appearing, well-nourished and in no acute distress. LUNGS: Breath sounds clear to auscultation bilaterally and equal. No wheezes rales or rhonchi. HEART: Regular rate and rhythm without murmurs, rubs, gallops. ABDOMEN: Soft, nontender, nondistended abdomen. No guarding, no rebound. No masses appreciated. Normal bowel sounds present. No CVA tenderness bilaterally. : deferred Musculoskeletal: FROM to passive/active. Strength 5+/5. Extremities: No cyanosis, clubbing, or edema b/l. Peripheral pulses 2+. Capillary refill less than 3 seconds. NEUROLOGICAL: Normal speech, normal gait. PSYCH: Normal mood, normal affect. SKIN: Warm, Dry, normal turgor, no rashes or lesions noted. Course - Re-evaluation Re-evalutation: 06/15/18 Patient is an afebrile, well-hydrated, 23-year-old female who presents to the ED with pelvic cramping and + preg test, suspect poss. very early at this time. Vitals are acceptable without any significant tachycardia, tachypnea, or hypoxia. PE is otherwise unremarkable. Her abd is soft and non-tender. HCG at 458. TVUS does not show any intra/extra uterine . UA unremarkable. Patient is nontoxic-appearing is tolerating p.o. without any difficulties. No other labs or imaging warranted at this time based on H&P. Low suspicion/risk for acute appendicitis, bowel obstruction, acute cholecystitis, acute cholangitis, perforated diverticulitis, incarcerated hernia, pancreatitis, perforated ulcer, peritonitis, sepsis, pelvic inflammatory disease, tubo-ovarian abscess, ovarian torsion, or other systemic emergent condition at this time. Patient is aware that her condition can change from initial presentation and she needs to monitor symptoms closely and seek medical attention if any acute changes. She is also aware that we cannot adequately r/o ectopic at this time and needs to have a close f/u. Recheck HCG in 2-3 days, may need repeat US in the next 7-10 days as well. Conservative measures otherwise for symptoms. Recheck with your PCM/OBGYN in 3-5 days. Return to the ED with any worsening/concerning symptoms otherwise as reviewed in discharge. Patient is in agreement. - Vital Signs Vital signs: Temp Pulse Resp BP Pulse Ox 99 F 114 H 18 123/85 99 06/15/18 12:26 06/15/18 12:26 06/15/18 12:27 06/15/18 12:26 06/15/18 12:26 - Laboratory Laboratory results interpreted by me: 06/15/18 12:55 Beta HCG, Quant 458.07 H Discharge - Discharge Clinical Impression: Pelvic cramping, Positive test Condition: Stable Disposition: HOME, SELF-CARE Additional Instructions: As reviewed, he had a positive blood test but nothing was seen on the ultrasound as this may indicate a very early . We cannot adequately rule out an ectopic and you need to have your hormone level checked in about 2-3 days with possible ultrasound in 7-10 days pending direction of COMMUTATOR OPERATOR which you are to follow-up with next week. Call 1 day after you have your blood drawn for your result. Maintain fluid intake Proper hygienic technique Keep the skin clean Tylenol as needed F/u with your PCM/OBGYN in 3-5 days for a recheck Return to the ED with any development of JAMES/fever, trouble with vision, eye redness, worsening pain, urethral discharge, urinary retention, blood in the urine, flank pain, abdominal pain, n/v, Chest Pain, shortness of breath, joint pains, trouble breathing, or any other worsening/concerning symptoms as needed otherwise. Forms: Follow-Up Laboratory Testing Referrals: [facility] [Provider Group] - Follow up in 3-5 days
[2018-06-15 13:29] LABS: APPEARANCE,URINE CLEAR; BILIRUBIN,URINE NEGATIVE (NEGATIVE); COLOR,URINE YELLOW; GLUCOSE, URINE NEGATIVE (NEGATIVE); KETONES,URINE NEGATIVE (NEGATIVE); LEUKOCYTE ESTERASE,URINE NEGATIVE (NEGATIVE); NITRITE,URINE NEGATIVE (NEGATIVE); PROTEIN,URINE NEGATIVE (NEGATIVE); URINE SPECIFIC GRAVITY 1.011; UROBILINOGEN,URINE NEGATIVE mg/dL (<2.0)
--- NOTE | 2018-06-15 13:30 | RADIOLOGY REPORT (SQ) ---
EXAM DESCRIPTION: U/S OB TRANSVAG W/DOPPLER COMPLETED DATE/TIME: 06/15/2018 1:19 pm REASON FOR STUDY: early preg, cramping COMPARISON: None. TECHNIQUE: Transvaginal static and realtime grayscale images acquired of the pelvis. Additional spencer cted spectral and color Doppler images recorded. All images stored on PACs. CLINICAL AGE: 5 week 2 day. BHCG: Pending. LIMITATIONS: None. FINDINGS: UTERUS: No visualized intrauterine . RIGHT ADNEXA: Normal ovary with normal vascular flow. No adnexal free fluid. 1.5 x 2.1 cm hypoechoic area, possible hemorrhagic cyst. LEFT ADNEXA: Normal ovary with normal vascular flow. No adnexal free fluid. No adnexal masses. FREE FLUID: None. OTHER: No other significant finding. IMPRESSION: NO VISUALIZED INTRA- OR EXTRAUTERINE . bHCG LEVEL NOT AVAILABLE FOR CORRELATION WITH US FINDINGS. ECTOPIC CANNOT BE EXCLUDED. FOLLOW-UP ULTRASOUND AND SERIAL BHCG LEVELS STRONGLY RECOMMENDED TO ACCURATELY ASSESS STATU S. TECHNICAL DOCUMENTATION: JOB ID: [id number] [employer]- All Rights Reserved Reading location - IP/workstation name: [email or web address]
[2018-06-15 14:34] VITALS: BP 106/58
== END 2018-06-15 14:34 | disposition home or self-care (01) ==
LOC: ER 12:11
DX: O26.91 Pregnancy related conditions, unspecified, first trimester (principal); R10.2 Pelvic and perineal pain; R11.0 Nausea; Z3A.01 Less than 8 weeks gestation of pregnancy; Z87.442 Personal history of urinary calculi
CPT/HCPCS: 99284; 36415; 87086; 84702; 81001; 76817; 93976; S0119

== ENCOUNTER 2018-09-04 16:06 | Emergency (ER) | payer MEDICAID ==
[2018-09-04 16:18] VITALS: BP 97/52
== END 2018-09-04 17:56 | disposition left against medical advice (07) ==
LOC: ER 16:06
DX: Z53.21 Procedure and treatment not carried out due to patient leaving prior to being seen by health care provider (principal)

== ENCOUNTER 2018-09-08 00:13 | Emergency (ER) | payer MEDICAID ==
[2018-09-08 01:04] VITALS: BP 99/65
--- NOTE | 2018-09-08 03:41 | ER Document Report ---
ED General - General Chief Complaint: OB Problem (<20wks) Stated Complaint: ABDOMINAL CRAMPING,BACK PAIN Time Seen by Provider: 09/08/18 02:54 Primary Care Provider: HUAN PULLIAM CNM [NO LOCAL MD] - Follow up as needed Notes: Patient is a 23-year-old female presents with complaint of cramping in . She is currently 16 weeks . No bleeding. 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 She says she has had some whitish discharge. No vomiting. No diarrhea. No fevers. No other complaints at this time. This is her third . She has 1 live and one elective previously. TRAVEL OUTSIDE OF THE [place] IN LAST 30 DAYS: No - Related Data Allergies/Adverse Reactions: No Known Allergies Allergy (Verified 06/15/18 12:18) Past Medical History - Social History Smoking Status: Never Smoker Frequency of alcohol use: None Drug Abuse: None Family History: Reviewed & Not Pertinent, Other - Father Hx of Schizophrenia Endocrine Medical History: Denies: Hx Diabetes Mellitus Type 2 Renal/ Medical History: Reports: Hx Kidney Stones, Hx Pelvic Inflammatory Disease. Denies: Hx Peritoneal Dialysis Skin Medical History: Reports Hx Cellulitis Psychiatric Medical History: Reports: Hx Bipolar Disorder, Hx Schizophrenia Past Surgical History: Reports: Hx Gynecologic Surgery - D & C - Immunizations Hx Diphtheria, Pertussis, Tetanus Vaccination: Yes Review of Systems - Review of Systems Notes: My Normal Review Basic REVIEW OF SYSTEMS: CONSTITUTIONAL : Denies fever, chills, or sweats. Denies recent illness. RESPIRATORY: Denies cough, cold, or chest congestion. Denies shortness of breath, difficulty breathing, or wheezing. GASTROINTESTINAL: Lower abdominal and pelvic cramping. Denies nausea, vomiting, or diarrhea. GENITOURINARY: Denies difficulty urinating, painful urination, burning, frequency, or blood in urine. FEMALE GENITOURINARY: Denies vaginal bleeding, abnormal or irregular periods. LMP: currently MUSCULOSKELETAL: Denies neck or back pain or joint pain or swelling. SKIN: Denies rash or skin lesions. NEUROLOGICAL: Denies altered mental status or loss of consciousness. Denies headache. Denies weakness or paralysis or loss of use of either side. Denies problems with gait or speech. Denies sensory or motor loss. ALL OTHER SYSTEMS REVIEWED AND NEGATIVE. Physical Exam - Vital signs Vitals: Temp Pulse Resp BP Pulse Ox 98.5 F 85 16 99/65 L 99 09/08/18 01:02 09/08/18 01:02 09/08/18 01:02 09/08/18 01:02 09/08/18 01:02 - Notes Notes: General Appearance: Well nourished, alert, cooperative, no acute distress, no obvious discomfort. Vitals: reviewed, See vital signs table. Eyes: PERRL, EOMI, Conjuctiva clear Mouth: No decreasd moisture Lungs: No wheezing, No rales, No rhonci, No accessory muscle use, good air exchange bilaterally. Heart: Normal rate, Regular rythm, No murmur, no rub Abdomen: Normal BS, soft, No rigidity, No abdominal tenderness, No guarding, no rebound, no abdominal masses, no organomegaly Pelvic exam: Some thick whitish discharge in the external vaginal area consistent with yeast infection. Some whitish discharge inside vaginal vault. No bleeding. Pelvic exam performed with female Marisol Pabon, at bedside. Extremities: good pulses in all extremities, no swelling or tenderness in the extremities, no edema. Skin: warm, dry, appropriate color, no rash Neuro: speech clear, oriented x 3, normal affect, responds appropriately to questions. Course - Re-evaluation Re-evalutation: 09/08/18 07:10 Inform patient that her wet prep came back positive for what appears to be bacterial vaginosis. Informed her we would wait for her urinalysis to come back. She was okay with this. I ordered Flagy. I told her I would prescribe her Flagyl. when I was waiting for UA to come back patient eloped. She did not return. I did do bedside ultrasound on my initial evaluation the patient. Patient's baby had good movement with the heart rate in 150s. Dictation of this chart was performed using voice recognition software; therefore, there may be some unintended grammatical errors. - Vital Signs Vital signs: Temp Pulse Resp BP Pulse Ox 98.5 F 85 16 99/65 L 99 09/08/18 01:02 09/08/18 01:02 09/08/18 01:02 09/08/18 01:02 09/08/18 01:02 - Laboratory Laboratory results interpreted by me: 09/08/18 05:15 Urine Urobilinogen 2.0 H Ur Leukocyte Esterase SMALL H Discharge - Discharge Clinical Impression: Bacterial vaginosis Condition: Stable Disposition: ELOPED Referrals: HUAN PULLIAM CNM [NO LOCAL MD] - Follow up as needed
[2018-09-08 03:50] LABS: BACTERIA (WET MOUNT) 4+ BACTERIA SEEN; EPITHELIALS (WET MOUNT) 4+ EPITHELIALS SEEN; RBCS (WET MOUNT) NO RBCS SEEN; T.VAGINALIS (WET MOUNT) NO TRICHOMONAS SEEN; WBCS (WET MOUNT) 1+ WBCS SEEN; YEAST (WET MOUNT) NO YEAST SEEN
[2018-09-08] MEDS ORDERED: METRONIDAZOLE 500 MG TABLET PO ONE (04:42)
[2018-09-08 05:14] LABS: CHLAM PCR NOT DETECTED (NOT DETECT)
[2018-09-08 06:06] LABS: APPEARANCE,URINE CLEAR; BILIRUBIN,URINE NEGATIVE (NEGATIVE); COLOR,URINE YELLOW; GLUCOSE, URINE NEGATIVE (NEGATIVE); KETONES,URINE NEGATIVE (NEGATIVE); LEUKOCYTE ESTERASE,URINE SMALL (NEGATIVE); NITRITE,URINE NEGATIVE (NEGATIVE); PROTEIN,URINE NEGATIVE (NEGATIVE); URINE SPECIFIC GRAVITY 1.025
== END 2018-09-08 05:30 | disposition left against medical advice (07) ==
LOC: ER 00:13
DX: O23.592 Infection of other part of genital tract in pregnancy, second trimester (principal); B96.89 Other specified bacterial agents as the cause of diseases classified elsewhere; Z3A.16 16 weeks gestation of pregnancy; Z87.442 Personal history of urinary calculi
CPT/HCPCS: 81001; 87210; 87491; 87591; 99281

== ENCOUNTER 2018-11-03 00:27 | Outpatient (CLI) | payer MEDICAID ==
[2018-11-03 01:29] LABS: APPEARANCE,URINE CLOUDY; BILIRUBIN,URINE NEGATIVE (NEGATIVE); COLOR,URINE AMBER; GLUCOSE, URINE NEGATIVE (NEGATIVE); KETONES,URINE 80 mg/dL (NEGATIVE); LEUKOCYTE ESTERASE,URINE NEGATIVE (NEGATIVE); NITRITE,URINE NEGATIVE (NEGATIVE); PROTEIN,URINE 100 mg/dL (NEGATIVE)
[2018-11-03 02:14] LABS: URINE AMPHETAMINES SCREEN NEGATIVE; URINE BARBITURATES SCREEN NEGATIVE; URINE BENZODIAZEPINES SCREEN NEGATIVE; URINE COCAINE SCREEN NEGATIVE; URINE METHADONE SCREEN NEGATIVE; URINE PHENCYCLIDINE SCREEN NEGATIVE
[2018-11-03 02:17] LABS: URINE MARIJUANA (THC) SCREEN UNCONFIRMED POSITIVE
== END 2018-11-03 01:11 | disposition left against medical advice (07) ==
LOC: LC 00:27
PROVIDERS: ATTEND Student in an Organized Health Care Education/Training Program
PROC: 4A1HXCZ Monitoring of Products of Conception, Cardiac Rate, External Approach (ICD-10-PCS; principal; 2018-11-03)
DX: Z34.92 Encounter for supervision of normal pregnancy, unspecified, second trimester (principal)
CPT/HCPCS: 80307; 81001

== ENCOUNTER 2018-11-03 16:43 | Outpatient (CLI) | payer MEDICAID ==
[2018-11-03 17:13] LABS: APPEARANCE,URINE CLOUDY; BILIRUBIN,URINE NEGATIVE (NEGATIVE); COLOR,URINE AMBER; GLUCOSE, URINE NEGATIVE (NEGATIVE); KETONES,URINE 20 mg/dL (NEGATIVE); LEUKOCYTE ESTERASE,URINE SMALL (NEGATIVE); NITRITE,URINE NEGATIVE (NEGATIVE); PROTEIN,URINE 30 mg/dL (NEGATIVE); URINE SPECIFIC GRAVITY 1.027
[2018-11-03 17:29] LABS: URINE AMPHETAMINES SCREEN NEGATIVE; URINE BARBITURATES SCREEN NEGATIVE; URINE BENZODIAZEPINES SCREEN NEGATIVE; URINE COCAINE SCREEN NEGATIVE; URINE METHADONE SCREEN NEGATIVE; URINE PHENCYCLIDINE SCREEN NEGATIVE
[2018-11-03 17:37] LABS: URINE MARIJUANA (THC) SCREEN UNCONFIRMED POSITIVE
== END 2018-11-03 17:40 | disposition left against medical advice (07) ==
LOC: LC 16:43
PROVIDERS: ATTEND Obstetrics & Gynecology
PROC: 4A1HXCZ Monitoring of Products of Conception, Cardiac Rate, External Approach (ICD-10-PCS; principal; 2018-11-03)
DX: Z34.82 Encounter for supervision of other normal pregnancy, second trimester (principal)
CPT/HCPCS: 59899; 81005; 80307; G0480 ×2; 80349

== ENCOUNTER 2018-11-25 23:11 | Outpatient (CLI) | payer MEDICAID ==
[2018-11-25] MEDS ORDERED: ACETAMINOPHEN WITH CODEINE #3 TABLET ONE (23:38)
[2018-11-25 23:53] LABS: APPEARANCE,URINE CLOUDY; BILIRUBIN,URINE NEGATIVE (NEGATIVE); COLOR,URINE YELLOW; GLUCOSE, URINE NEGATIVE (NEGATIVE); KETONES,URINE NEGATIVE (NEGATIVE); LEUKOCYTE ESTERASE,URINE NEGATIVE (NEGATIVE); NITRITE,URINE NEGATIVE (NEGATIVE); PROTEIN,URINE NEGATIVE (NEGATIVE); URINE SPECIFIC GRAVITY 1.016; UROBILINOGEN,URINE NEGATIVE mg/dL (<2.0)
[2018-11-26] MEDS ORDERED: LIDOCAINE 2% VISCOUS SOLN 20 ML UDCUP ONE
[2018-11-26] MEDS ORDERED: METOCLOPRAMIDE HCL ORAL SOLN 10 MG/10 ML UDCUP ONE
[2018-11-26 00:07] LABS: URINE AMPHETAMINES SCREEN NEGATIVE; URINE BARBITURATES SCREEN NEGATIVE; URINE BENZODIAZEPINES SCREEN NEGATIVE; URINE COCAINE SCREEN NEGATIVE; URINE MARIJUANA (THC) SCREEN NEGATIVE; URINE METHADONE SCREEN NEGATIVE; URINE PHENCYCLIDINE SCREEN NEGATIVE
[2018-11-26 00:18] LABS: ABSOLUTE EOSINOPHILS # (AUTO) 0.2 10^3/uL (0.0-0.6); ABSOLUTE LYMPHOCYTES (AUTO) 2.2 10^3/uL (0.5-4.7); ABSOLUTE MONOCYTES (AUTO) 0.8 10^3/uL (0.1-1.4); ABSOLUTE NEUT (AUTO) 10.4 10^3/uL (1.7-8.2); BASOPHILS % (AUTO) 0.3 % (0-2); EOSINOPHILS % (AUTO) 1.7 % (0-6); HEMATOCRIT 30.5 % (36.0-47.0); HEMOGLOBIN 10.6 g/dL (12.0-15.5); MEAN CORPUSCULAR HEMOGLOBIN 30.7 pg (27.0-33.4); MEAN CORPUSCULAR HGB CONC 34.7 g/dL (32.0-36.0); MEAN CORPUSCULAR VOLUME 89 fl (80-97); MONOCYTES % (AUTO) 6.1 % (3-13); PLATELET COUNT 228 10^3/uL (150-450); RED BLOOD COUNT 3.44 10^6/uL (3.72-5.28); RED CELL DISTRIBUTION WIDTH 12.5 % (11.5-14.0); SEGMENTED NEUTROPHILS % (AUTO) 75.9 % (42-78); TOTAL CELLS COUNTED % (AUTO) 100 %; WHITE BLOOD COUNT 13.7 10^3/uL (4.0-10.5)
[2018-11-26] MEDS ORDERED: MAG HYDROX/AL HYDROX/SIMETH SUSP 30 ML UDCUP ONE (00:18)
[2018-11-26 00:36] LABS: ALBUMIN 3.4 g/dL (3.5-5.0); ALKALINE PHOSPHATASE 86 U/L (38-126); AMYLASE 81 U/L (30-110); ANION GAP 5 (5-19); ASPARTATE AMINO TRANSFERASE 35 U/L (14-36); BILIRUBIN,DIRECT 0.1 mg/dL (0.0-0.4); BILIRUBIN,TOTAL 0.2 mg/dL (0.2-1.3); BLOOD UREA NITROGEN 5 mg/dL (7-20); CARBON DIOXIDE 25 mmol/L (22-30); CHLORIDE 108 mmol/L (98-107); GLUCOSE 88 mg/dL (75-110); POTASSIUM 3.8 mmol/L (3.6-5.0); TOTAL PROTEIN 6.2 g/dL (6.3-8.2)
[2018-11-26] MEDS ORDERED: ACETAMINOPHEN WITH CODEINE #3 TABLET PO ONE (01:00)
[2018-11-26] MEDS ORDERED: LIDOCAINE 2% VISCOUS SOLN 20 ML UDCUP PO ONE (01:00)
[2018-11-26] MEDS ORDERED: METOCLOPRAMIDE HCL ORAL SOLN 10 MG/10 ML UDCUP PO ONE (01:00)
[2018-11-26] MEDS ORDERED: MAG HYDROX/AL HYDROX/SIMETH SUSP 30 ML UDCUP PO ONE (01:00)
--- NOTE | 2018-11-26 01:19 | RADIOLOGY REPORT (SQ) ---
EXAM: Ultrasound abdomen limited CLINICAL DATA: 23-year-old female with right upper quadrant pain. TECHNICAL DATA: Limited sonographic imaging of the right upper quadrant was performed on 11/26/2018 at 12:51 AM. Comparison: None. FINDINGS: The liver is normal in size and configuration. The liver demonstrates normal echogenicity. No focal hepatic abnormalities are identified. Doppler imaging reveals patency of the portal vein and normal hepatopedal flow. The gallbladder is well distended and contains shadowing intraluminal echoes consistent with gallstones. The gallbladder wall thickness measures between 3 to 4 mm and is mildly thickened. No sonographic Paris sign was detected by the technologist. There is no evidence of pericholecystic fluid. The common bile duct measures 2 to 3 mm in diameter. There is no evidence of biliary ductal dilatation. The right kidney is normal in size, shape and echogenicity without hydronephrosis or definite nephrolithiasis. The right kidney measures 11.5 x 4.0 x 4.7 cm.. There is no evidence of free fluid in the abdomen. The pancreas is grossly normal in size, shape and echogenicity. The proximal aorta is unremarkable. IMPRESSION: 1. Cholelithiasis with mild gallbladder wall thickening. There is no evidence of biliary ductal dilatation, pericholecystic fluid or positive sonographic Paris sign. 2. Otherwise, unremarkable right upper quadrant ultrasound.
== END 2018-11-26 01:38 | disposition home or self-care (01) ==
LOC: LC 23:11
PROVIDERS: ATTEND Student in an Organized Health Care Education/Training Program
PROC: 4A1HXCZ Monitoring of Products of Conception, Cardiac Rate, External Approach (ICD-10-PCS; principal; 2018-11-25)
DX: O99.613 Diseases of the digestive system complicating pregnancy, third trimester (principal); K80.20 Calculus of gallbladder without cholecystitis without obstruction; Z3A.28 28 weeks gestation of pregnancy
CPT/HCPCS: 59899; 36415; 82150; 83690; 85025; 80053; 81001; 80307; 76705; J3490 ×3

== ENCOUNTER 2019-01-24 23:41 | Outpatient (CLI) | payer MEDICAID ==
[2019-01-25 00:28] LABS: APPEARANCE,URINE SLIGHTLY-CLOUDY; BILIRUBIN,URINE NEGATIVE (NEGATIVE); COLOR,URINE YELLOW; GLUCOSE, URINE NEGATIVE (NEGATIVE); KETONES,URINE NEGATIVE (NEGATIVE); LEUKOCYTE ESTERASE,URINE SMALL (NEGATIVE); NITRITE,URINE NEGATIVE (NEGATIVE); PROTEIN,URINE NEGATIVE (NEGATIVE); URINE SPECIFIC GRAVITY 1.009; UROBILINOGEN,URINE NEGATIVE mg/dL (<2.0)
[2019-01-25 01:07] LABS: URINE AMPHETAMINES SCREEN NEGATIVE; URINE BARBITURATES SCREEN NEGATIVE; URINE BENZODIAZEPINES SCREEN NEGATIVE; URINE COCAINE SCREEN NEGATIVE; URINE MARIJUANA (THC) SCREEN NEGATIVE; URINE METHADONE SCREEN NEGATIVE; URINE PHENCYCLIDINE SCREEN NEGATIVE
--- NOTE | 2019-01-25 02:56 | Non Stress Test Report ---
Non Stress Test Datetime Report Generated by CPN: 01/25/2019 02:56 DEMOGRAPHIC EGA NST: 37.0 INDICATION Indication for Study (NST) Other: Cramping MONITORING Monitor Explained: Monitor Explained; Test Explained; Patient Verbalized Understanding Time on Monitor: 01/24/2019 23:54 Time off Monitor: 01/25/2019 02:14 NST Duration: 140 NST INTERVENTIONS NST Interventions: PO Hydration Physician Notified NST: Dr. Gibson BABY A: [id number] BABY A Movement : Present Contraction Frequency : Irregular FHR Baseline : 135 Accelerations : 10X10 Decelerations : None Variability : Moderate 6-25bpm NST Review: Does Not Meet Criteria for Reactive NST NST Review and Verified By : RAJENDRA Stanley Results: Non-Reactive NST COMMENTS NST Comments: Patient had BPP 8/8 NST REPORT Report Trigger: Send Report
--- NOTE | 2019-01-25 03:14 | RADIOLOGY REPORT (SQ) ---
EXAM DESCRIPTION: US BIOPHYSICAL PROFILE WITHOUT NON STRESS TEST COMPLETED DATE/TME: 01/25/2019 00:00 CLINICAL HISTORY: 23 years, Female, Nonreactive stress test COMPARISON: 07/02/2018 TECHNIQUE: Grayscale and Doppler sonogram of the fetus. LIMITATIONS: None. FINDINGS: Biophysical profile score criteria: 1. Movement: 2/2. 2. Breathin/2. 3. tone: 2/2. 4. MERNA: 2/2. : Single live intrauterine . Presentation: Cephalic. heart rate: 147 BPM. MERNA: 12.4 cm. IMPRESSION: 1. BPP score: 8/8. copyright 2010 [employer]- All Rights Reserved
== END 2019-01-25 02:55 | disposition home or self-care (01) ==
LOC: EDSTATUS 23:41 → LC 23:41
PROVIDERS: ATTEND Obstetrics & Gynecology Gynecology
PROC: 4A1HXCZ Monitoring of Products of Conception, Cardiac Rate, External Approach (ICD-10-PCS; principal; 2019-01-24)
DX: O47.1 False labor at or after 37 completed weeks of gestation (principal); Z3A.37 37 weeks gestation of pregnancy
CPT/HCPCS: 59025; 76819; 80307; 81001; 84112

== ENCOUNTER 2019-02-03 18:19 | Inpatient (IN) | payer MEDICAID ==
[2019-02-03 19:02] LABS: APPEARANCE,URINE CLEAR; BILIRUBIN,URINE NEGATIVE (NEGATIVE); COLOR,URINE YELLOW; GLUCOSE, URINE NEGATIVE (NEGATIVE); KETONES,URINE NEGATIVE (NEGATIVE); LEUKOCYTE ESTERASE,URINE NEGATIVE (NEGATIVE); NITRITE,URINE NEGATIVE (NEGATIVE); PROTEIN,URINE 30 mg/dL (NEGATIVE); URINE SPECIFIC GRAVITY 1.019
[2019-02-03 19:19] LABS: URINE AMPHETAMINES SCREEN NEGATIVE; URINE BARBITURATES SCREEN NEGATIVE; URINE BENZODIAZEPINES SCREEN NEGATIVE; URINE COCAINE SCREEN NEGATIVE; URINE MARIJUANA (THC) SCREEN NEGATIVE; URINE METHADONE SCREEN NEGATIVE; URINE PHENCYCLIDINE SCREEN NEGATIVE
[2019-02-03] MEDS ORDERED: RINGERS SOLUTION,LACTATED 1,000 ML IV PRN (20:10)
[2019-02-03 21:13] LABS: ABSOLUTE EOSINOPHILS # (AUTO) 0.2 10^3/uL (0.0-0.6); ABSOLUTE LYMPHOCYTES (AUTO) 2.4 10^3/uL (0.5-4.7); ABSOLUTE MONOCYTES (AUTO) 0.8 10^3/uL (0.1-1.4); ABSOLUTE NEUT (AUTO) 9.1 10^3/uL (1.7-8.2); BASOPHILS % (AUTO) 0.3 % (0-2); EOSINOPHILS % (AUTO) 1.5 % (0-6); HEMATOCRIT 31.4 % (36.0-47.0); HEMOGLOBIN 10.7 g/dL (12.0-15.5); LYMPHOCYTES % (AUTO) 19.2 % (13-45); MEAN CORPUSCULAR HEMOGLOBIN 30.1 pg (27.0-33.4); MEAN CORPUSCULAR HGB CONC 33.9 g/dL (32.0-36.0); MEAN CORPUSCULAR VOLUME 89 fl (80-97); MONOCYTES % (AUTO) 6.3 % (3-13); PLATELET COUNT 282 10^3/uL (150-450); RED BLOOD COUNT 3.54 10^6/uL (3.72-5.28); RED CELL DISTRIBUTION WIDTH 13.4 % (11.5-14.0); SEGMENTED NEUTROPHILS % (AUTO) 72.7 % (42-78); TOTAL CELLS COUNTED % (AUTO) 100 %; WHITE BLOOD COUNT 12.5 10^3/uL (4.0-10.5)
--- NOTE | 2019-02-03 21:52 | RADIOLOGY REPORT (SQ) ---
EXAM DESCRIPTION: US LIMITED , US BIOPHYSICAL PROFILE WITHOUT NON STRESS TEST COMPLETED DATE/TME: 02/03/2019 00:00 (accession [id number]), 02/03/2019 19:58 (accession [id number]) CLINICAL HISTORY: 24 years Female 37wks vaginal bleeding COMPARISON: None. TECHNIQUE: Transabdominal duplex imaging performed to evaluate the pelvis. FINDINGS: Anterior placenta. No evidence of abruption. Normal MERNA 13.1 cm. heart rate 140 bpm. breathing posterior and movement observed. IMPRESSION: Living IUP Biophysical profile 10/11
--- NOTE | 2019-02-03 21:52 | RADIOLOGY REPORT (SQ) ---
EXAM DESCRIPTION: US LIMITED , US BIOPHYSICAL PROFILE WITHOUT NON STRESS TEST COMPLETED DATE/TME: 02/03/2019 00:00 (accession [id number]), 02/03/2019 19:58 (accession [id number]) CLINICAL HISTORY: 24 years Female 37wks vaginal bleeding COMPARISON: None. TECHNIQUE: Transabdominal duplex imaging performed to evaluate the pelvis. FINDINGS: Anterior placenta. No evidence of abruption. Normal MERNA 13.1 cm. heart rate 140 bpm. breathing posterior and movement observed. IMPRESSION: Living IUP Biophysical profile 10/11
[2019-02-04] MEDS ORDERED: ACETAMINOPHEN 325 MG TABLET ONE (07:12)
[2019-02-04] MEDS ORDERED: LIDOCAINE 1% INJ-PF (10 MG/ML) 30 ML SDV ONE (07:46)
[2019-02-04] MEDS ORDERED: MISOPROSTOL 0.2 MG TABLET ONE (07:46)
[2019-02-04] MEDS ORDERED: OXYTOCIN 10 UNIT/ML VIAL ONE (07:46)
[2019-02-04] MEDS ORDERED: OXYTOCIN/NORMAL SALINE 20 UNIT/1,000 ML RTUINJ ONE (07:46)
[2019-02-04] MEDS ORDERED: OXYTOCIN/NORMAL SALINE 20 UNIT/1,000 ML RTUINJ IV PRN ×2 (08:29→16:41)
--- NOTE | 2019-02-04 09:39 | Admission Physical ---
Datetime Report Generated by CPN: 02/04/2019 09:39 CURRENT ADMISSION Hx Assessment: The History has been Reviewed and is Current Chief Complaint: Suspected Ruptured Membranes; Vaginal Bleeding Indication for Induction: Not Applicable Admit Impression : Term, Intrauterine ; No Active Labor; Ruptured Membranes Admit Plan: Admit to Unit; Initiate Labor Induction Protocol ALLERGIES Medication Allergies: No Medication Allergies: No Known Allergies (01/24/2019) Latex: No Latex Allergies OBSTETRICAL HISTORY EDC: 02/24/2019 00:00 : 3 Para: 1 Term: 1 : 0 SAB: 0 IAB: 1 Ectopic: 0 Livin Cesareans: 0 VBACs: 0 Multiple Births: 0 Gestational Diabetes: No Rh Sensitization: No Incompetent Cervix: No EMILY: No Infertility: No ART Treatment: No Uterine Anomaly: No IUGR: No Hx Previous C/S: No Macrosomia: No Hx Loss/Stillborn: No PIH: No Hx : No Placenta Previa/Abruption: No Depression/PP Depression: Yes PTL/PROM: No Post Hemorrhage: No Current Procedures: Ultrasound; NST Obstetrical History Comments: g1-2011, , 38 weeks, female, 6lb 8oz, no complications g2-2015, EAB, 6 weeks g3-current SEE RECORDS Alcohol: No Marijuana : Yes Marijuana Comments: pt denies, positive drug screen 11/03/18 Cocaine: No Other Illicit Drugs: No Cigarettes: Current Everyday Smoker. [id number] Cigarette Frequency: 5 - 10 per day Advised to Stop: Yes MEDICAL HISTORY Diabetes: No Blood Transfusion: No Pulmonary Disease (Asthma, TB): No Breast Disease: No Hypertension: No Stenotype Operator Surgery: No Heart Disease: No Hosp/Surgery: Yes Autoimmune Disorder: No Anesthetic Complications: No Kidney Disease: No Abnormal Pap Smear: No Neuro/Epilepsy: No Psychiatric Disorders: Yes Other Medical Diseases: Yes Hepatitis/Liver Disease: No Significant Family History: No Varicosities/Phlebitis: No Trauma/Violence : No Thyroid Dysfunction: No Medical History Comments: bipolar not on meds- used to be year ago plans to be on meds after baby is born. depression- not on meds, gallstones, childbirth x 1, smoker tobacco and marijuana (Annotations: Data stored by [facility] on behalf of user) INFECTIOUS HISTORY Gonorrhea: No Genital Herpes: No Chlamydia: No Tuberculosis: No Syphilis: No Hepatitis: No HIV/AIDS Exposure: No Rash or Viral Illness: No HPV: No PHYSICAL EXAM General: Normal HEENT: Deferred Neurologic: Normal Thyroid: Deferred Heart: Normal Lungs: Normal Breast: Deferred Back: Normal Abdomen: Normal Genitourinary Exam: Normal Extremities: Normal DTRs: Normal Pelvic Type: Adequate Physical Exam Comments: 37+1, SROM Pelvis proven 6-8 + Smoker, Bipolar, no meds Rubella non-immune Vital Signs: Reviewed VAGINAL EXAM Dilatation: 3 Effacement: 50% Station: -1 Contraction Comments: q 7 MEMBRANES Membranes: Bulging Amniotic Fluid Color: Clear FETUS A EGA: 37.1 Monitoring: External US Variability: Moderate 6-25bpm Accelerations: 15X15 FHR Category: Category I Admit Comment: Admit to LD, start Pitocin, POC discusssed with pt and Dr. Gibson PLANS FOR LABOR AND DELIVERY Labor and Delivery: None Pain Management: Epidural Feeding Preference: Formula Benefit of Breast Feed Discussed: Yes Circumcision: Yes INFORMED CONSENT Assignment: Masoud Gibson MD Signature: with User ID: [email or web address] : with User ID: [email or web address]
[2019-02-04] MEDS ORDERED: CITRIC ACID/SODIUM CITRATE ORAL SOLN 15 ML UDCUP ONE (13:53)
[2019-02-04] MEDS ORDERED: BUPIVACAINE HCL 0.25 % INJ/PF (2.5 MG/1 ML) 30 ML VIAL ONE (13:54)
[2019-02-04] MEDS ORDERED: FENTANYL/BUPIVACAINE/NS/PF 300 MCG/150 ML RTUINJ EPI ONE (13:54)
[2019-02-04] MEDS ORDERED: EPHEDRINE SULFATE INJ 50 MG/1 ML AMPULE ONE (13:54)
[2019-02-04] MEDS ORDERED: NALBUPHINE HCL INJ 10 MG/1 ML AMPULE ONE (14:21)
[2019-02-04] MEDS ORDERED: ACETAMINOPHEN 650 MG SUPP.RECT PR PRN (16:41)
[2019-02-04] MEDS ORDERED: PROMETHAZINE HCL 25 MG TABLET PO PRN (16:41)
[2019-02-04] MEDS ORDERED: MEASLES,MUMPS&RUBELLA VACC/PF 0.5 ML VIAL SUBCUT PRN (16:41)
[2019-02-04] MEDS ORDERED: DIPH/PERTUSS(ACELL)/TETANUS VAC/PF 0.5 ML SYR (>=10YO) IM PRN (16:41)
[2019-02-04] MEDS ORDERED: GLYCERIN/WITCH HAZEL LEAF 1 EACH MED..WIPE TP PRN (16:41)
[2019-02-04] MEDS ORDERED: ACETAMINOPHEN WITH CODEINE #3 TABLET PO PRN ×2 (16:41)
[2019-02-04] MEDS ORDERED: MAGNESIUM HYDROXIDE SUSP 30 ML UDCUP PO PRN (16:41)
[2019-02-04] MEDS ORDERED: BENZOCAINE/MENTHOL AEROSOL SPRAY 56 ML TOP PRN (16:41)
[2019-02-04] MEDS ORDERED: PROMETHAZINE HCL 25 MG SUPP.RECT PR PRN (16:41)
[2019-02-04] MEDS ORDERED: PROMETHAZINE HCL INJ 25 MG/1 ML VIAL IV PRN (16:41)
[2019-02-04] MEDS ORDERED: PSEUDOEPHEDRINE HCL 30 MG TABLET PO PRN (16:41)
[2019-02-04] MEDS ORDERED: DIPHENHYDRAMINE HCL 25 MG CAPSULE PO PRN (16:41)
[2019-02-04] MEDS ORDERED: NA PHOS,M-B/NA PHOS,DI-BA (ADULT) 133 ML ENEMA PR PRN (16:41)
[2019-02-04] MEDS ORDERED: DIBUCAINE 1% OINTMENT 56 GM TP PRN (16:41)
[2019-02-04] MEDS ORDERED: BENZOCAINE/MENTHOL AEROSOL SPRAY 56 ML ONE (18:41)
--- NOTE | 2019-02-04 18:48 | Warning Signs in Babies ---
VOD Warning Signs Datetime Report Generated by [facility]: 02/04/2019 18:48 VOD#608 -Warning Signs in Babies: Viewed with Parent(s)/Family (02/04/2019 18:47:Jennifer Huertas RN)
[2019-02-04] MEDS: ACETAMINOPHEN 325 MG TABLET PO PRN (20:32)
[2019-02-04] MEDS: IBUPROFEN 800 MG TABLET PO SCH (21:40)
[2019-02-04] MEDS: FAMOTIDINE 20 MG TABLET PO SCH (21:40)
[2019-02-04] MEDS: DOCUSATE SODIUM 100 MG CAPSULE PO SCH (21:41)
[2019-02-04] MEDS: FERROUS SULFATE 325 MG TABLET PO SCH (21:41)
[2019-02-05] MEDS: IBUPROFEN 800 MG TABLET PO SCH ×3 (05:33→21:15)
[2019-02-05 07:03] LABS: HEMATOCRIT 29.4 % (36.0-47.0); HEMOGLOBIN 9.8 g/dL (12.0-15.5); MEAN CORPUSCULAR HEMOGLOBIN 29.7 pg (27.0-33.4); MEAN CORPUSCULAR HGB CONC 33.3 g/dL (32.0-36.0); MEAN CORPUSCULAR VOLUME 89 fl (80-97); PLATELET COUNT 244 10^3/uL (150-450); RED CELL DISTRIBUTION WIDTH 13.2 % (11.5-14.0); WHITE BLOOD COUNT 13.6 10^3/uL (4.0-10.5)
[2019-02-05] MEDS: DOCUSATE SODIUM 100 MG CAPSULE PO SCH ×2 (09:19→17:52)
[2019-02-05] MEDS: SENNOSIDES/DOCUSATE 8.6-50 MG 1 EACH TABLET PO SCH (09:19)
[2019-02-05] MEDS: FERROUS SULFATE 325 MG TABLET PO SCH ×2 (09:28→17:51)
[2019-02-05] MEDS: GABAPENTIN 100 MG CAPSULE PO SCH (09:28)
[2019-02-05] MEDS: FAMOTIDINE 20 MG TABLET PO SCH ×2 (09:28→21:15)
[2019-02-05] MEDS: PRENATAL VITAMIN W DHA CAPSULE PO SCH (09:28)
--- NOTE | 2019-02-05 09:40 | PDOC PROGRESS REPORT ---
Subjective-OB Progress Note for:: 02/05/19 Subjective: Pt doing well, no concerns. She reports light bleeding, reg diet and voiding without difficulty. Physical Exam (OB) Vital Signs: Temp Pulse Resp BP Pulse Ox 97.6 F 85 16 108/72 100 02/05/19 08:05 02/05/19 08:05 02/05/19 08:05 02/05/19 08:05 02/05/19 08:05 Intake & Output 02/04/19 02/05/19 02/06/19 06:59 06:59 06:59 Intake Total 240 Balance 240 Weight 62 kg - PIH/Pre-Eclampsia DTR's: 1 + Clonus: Negative Headache: Absent Epigastric Pain: No Visual Changes: No - Lochia Lochia Amount: Scant < 10 ml Lochia Color: Rubra/Red - Abdomen Description: Soft, Round Hernia Present: No Fundal Description: Firm, Midline Fundal Height: u/u - u/2 Objective-Diagnostic Laboratory: 02/05/19 06:49 02/05/19 06:49 WBC 13.6 H RBC 3.30 L Hgb 9.8 L Hct 29.4 L MCV 89 MCH 29.7 MCHC 33.3 RDW 13.2 Plt Count 244 Assessment and Plan(PN) - Assessment and Plan (1) Rubella nonimmune status, delivered, current hospitalization Is this a current diagnosis for this admission?: Yes (2) Bipolar 1 disorder Is this a current diagnosis for this admission?: Yes (3) Delivery normal Is this a current diagnosis for this admission?: Yes - Time Spent with Patient Time with patient: Less than 15 minutes Medications reviewed and adjusted accordingly: Yes - Disposition Anticipated Discharge: Home Within: within 24 hours
[2019-02-06] MEDS: IBUPROFEN 800 MG TABLET PO SCH ×2 (05:16→14:45)
[2019-02-06 08:54] VITALS: BP 116/76
[2019-02-06] MEDS: FAMOTIDINE 20 MG TABLET PO SCH (09:07)
[2019-02-06] MEDS: FERROUS SULFATE 325 MG TABLET PO SCH (09:07)
[2019-02-06] MEDS: GABAPENTIN 100 MG CAPSULE PO SCH (09:07)
[2019-02-06] MEDS: PRENATAL VITAMIN W DHA CAPSULE PO SCH (09:07)
--- NOTE | 2019-02-06 10:30 | PDOC DISCHARGE SUMMARY ---
Impression - Admit/DC Date/PCP Admission Date/Primary Care Provider: 02/03/19 20:19 WALLACE ZAMUDIO MD Discharge Date: 02/06/19 - Additional Information Resuscitation Status: Full Code Discharge Diet: As Tolerated, Regular Discharge Activity: Activity As Tolerated, Balance Activity w/Rest, No Lifting Over 10 Pounds, Pelvic Rest, No tub bath, Walk Frequently Referrals: WALLACE ZAMUDIO MD [Primary Care Provider] - Prescriptions: Ibuprofen [Motrin 800 mg Tablet] 800 mg PO Q8HP PRN #20 tablet PRN Reason: Docusate Sodium [Colace 100 mg Capsule] 100 mg PO BID #60 capsule Ferrous Sulfate [Feosol 325 mg Tablet] 325 mg PO BID #60 tablet Home Medications: Vits96/Iron Fum/Folic [ Tablet] 1 each PO DAILY 10/02/18 Gabapentin [Neurontin 100 mg Capsule] 100 mg PO DAILY 01/24/19 Docusate Sodium [Colace 100 mg Capsule] 100 mg PO BID #60 capsule 02/06/19 Ferrous Sulfate [Feosol 325 mg Tablet] 325 mg PO BID #60 tablet 02/06/19 Ibuprofen [Motrin 800 mg Tablet] 800 mg PO Q8HP PRN #20 tablet 02/06/19 Results Laboratory Results: WBC 13.6 10^3/uL (4.0-10.5) H 02/05/19 06:49 RBC 3.30 10^6/uL (3.72-5.28) L 02/05/19 06:49 Hgb 9.8 g/dL (12.0-15.5) L 02/05/19 06:49 Hct 29.4 % (36.0-47.0) L 02/05/19 06:49 MCV 89 fl (80-97) 02/05/19 06:49 MCH 29.7 pg (27.0-33.4) 02/05/19 06:49 MCHC 33.3 g/dL (32.0-36.0) 02/05/19 06:49 RDW 13.2 % (11.5-14.0) 02/05/19 06:49 Plt Count 244 10^3/uL (150-450) 02/05/19 06:49 Lymph % (Auto) 19.2 % (13-45) 02/03/19 20:50 [place] % (Auto) 6.3 % (3-13) 02/03/19 20:50 Eos % (Auto) 1.5 % (0-6) 02/03/19 20:50 Baso % (Auto) 0.3 % (0-2) 02/03/19 20:50 Absolute Neuts (auto) 9.1 10^3/uL (1.7-8.2) H 02/03/19 20:50 Absolute Lymphs (auto) 2.4 10^3/uL (0.5-4.7) 02/03/19 20:50 Absolute Monos (auto) 0.8 10^3/uL (0.1-1.4) 02/03/19 20:50 Absolute Eos (auto) 0.2 10^3/uL (0.0-0.6) 02/03/19 20:50 Absolute Basos (auto) 0.0 10^3/uL (0.0-0.2) 02/03/19 20:50 Seg Neutrophils % 72.7 % (42-78) 02/03/19 20:50 Urine Color YELLOW 02/03/19 18:48 Urine Appearance CLEAR 02/03/19 18:48 Urine pH 7.0 (5.0-9.0) 02/03/19 18:48 Ur Specific [place] 1.019 02/03/19 18:48 Urine Protein 30 mg/dL (NEGATIVE) H 02/03/19 18:48 Urine Glucose (UA) NEGATIVE mg/dL (NEGATIVE) 02/03/19 18:48 Urine Ketones NEGATIVE mg/dL (NEGATIVE) 02/03/19 18:48 Urine Blood LARGE (NEGATIVE) H 02/03/19 18:48 Urine Nitrite NEGATIVE (NEGATIVE) 02/03/19 18:48 Urine Bilirubin NEGATIVE (NEGATIVE) 02/03/19 18:48 Urine Urobilinogen 2.0 mg/dL (<2.0) H 02/03/19 18:48 Ur Leukocyte Esterase NEGATIVE (NEGATIVE) 02/03/19 18:48 Urine Ascorbic Acid NEGATIVE (NEGATIVE) 02/03/19 18:48 Amniotic Ferning Test FERN PATTERN ABSENT (ABSENT) 02/04/19 02:15 Membranes Rupture POSITIVE (NEGATIVE) H 02/04/19 02:15 Urine Opiates Screen NEGATIVE 02/03/19 18:48 Urine Methadone Screen NEGATIVE 02/03/19 18:48 Ur Barbiturates Screen NEGATIVE 02/03/19 18:48 Ur Phencyclidine Scrn NEGATIVE 02/03/19 18:48 Ur Amphetamines Screen NEGATIVE 02/03/19 18:48 U Benzodiazepines Scrn NEGATIVE 02/03/19 18:48 Urine Cocaine Screen NEGATIVE 02/03/19 18:48 U Marijuana (THC) Screen NEGATIVE 02/03/19 18:48 RPR NONREACTIVE (NONREACTIVE) 02/03/19 20:50 Blood Type A POSITIVE 02/03/19 20:50 Antibody Screen NEGATIVE 02/03/19 20:50 Impressions: Obstetrics Ultrasound 02/03/19 00:00 IMPRESSION: Living IUP Biophysical profile 10/11 Stress Test 02/03/19 19:58
[2019-02-06] MEDS: SENNOSIDES/DOCUSATE 8.6-50 MG 1 EACH TABLET PO SCH (12:17)
[2019-02-06] MEDS: DOCUSATE SODIUM 100 MG CAPSULE PO SCH (12:17)
[2019-02-06] MEDS: ACETAMINOPHEN 325 MG TABLET PO PRN (12:22)
--- NOTE | 2019-02-07 11:08 | Delivery Summary ---
Del Sum A-C Datetime Report Generated by CPN: 02/07/2019 11:08 DELIVERY PERSONNEL DELIVERY PERSONNEL: [id number] Labor and Delivery Nurse:: Tierra Brumfield RNsenior supplier quality engineer Nurse:: Jennifer Huertas RN Nursery Nurse:: Sofia Pena RN Nursery Nurse:: Shira Barrera RN MATERNAL INFORMATION Delivery Anesthesia: None Medications After Delivery: Pitocin Bolus-Please Comment Delivery QBL: 150 Maternal Complications: None Provider Comments: Uncontrolled pushing, nurse controlled delivery of live male infant from OA to MOR, compound rt hand over intact perineum, spont delivery of grossly normal intact placenta, 3 VC, baby placed on mothers abd, fob and mother in room Mom and baby in recovery in stable conditiion, FFFM LABOR SUMMARY EDC: 02/24/2019 00:00 No. Babies in Womb: 1 Attempted: No Labor Anesthesia: None LABOR INFORMATION Reason for Induction: Other Reason for Induction- Other: SROM Onset of Labor: 02/04/2019 08:07 Complete Dilatation: 02/04/2019 16:14 Oxytocin: Induction Group B Beta Strep: negative Steroids Given: None Reason Steroids Not Administered: Not Applicable MEMBRANES Membranes Rupture Method: Artificial Membranes Rupture Method: Spontaneous Rupture of Membranes: 02/04/2019 13:44 Rupture of Membranes: 02/03/2019 18:30 Length of Rupture (hr): 2.60 Length of Rupture (hr): 21.83 Amniotic Fluid Color: Clear Amniotic Fluid Color: Clear Amniotic Fluid Amount: Small Amniotic Fluid Amount: None Amniotic Fluid Odor: Normal Amniotic Fluid Odor: None STAGES OF LABOR Stage 1 hr: 8 Stage 1 min: 7 Stage 2 hr: 0 Stage 2 min: 6 Stage 3 hr: 0 Stage 3 min: 5 Total Time in Labor hr: 8 Total Time in Labor min: 18 VAGINAL DELIVERY Episiotomy: None Laceration Repair: Not Applicable Sponge Count Correct: N/A BABY A INFORMATION Infant Delivery Date/Time: 02/04/2019 16:20 Method of Delivery: Vaginal Born in Route : No : N/A Forceps: N/A Vacuum Extraction: N/A Shoulder Dystocia : No PRESENTATION/POSITION BABY A Presentation: Cephalic Cephalic Presentation: Vertex Vertex Position: Right Occipital Anterior, Right compound hand Breech Presentation: N/A PLACENTA INFORMATION BABY A Placenta Delivery Time : 02/04/2019 16:25 Placenta Method of Delivery: Spontaneous Placenta Status: Delivered SCORES BABY A Heart Rate 1 min: >100 bpm Resp Effort 1 min: Good Cry Reflex Irritability 1 min: Cough or Sneeze or Pulls Away Muscle Tone 1 min: Active Motion Color 1 min: Body [place], Extremities Blue Resuscitation Effort 1 min: Tactile Stimulation SCORE 1 MIN: 9 Heart Rate 5 min: >100 bpm Resp Effort 5 min: Good Cry Reflex Irritability 5 min: Cough or Sneeze or Pulls Away Muscle Tone 5 min: Active Motion Color 5 min: Body [place], Extremities Blue Resuscitation Effort 5 min: Tactile Stimulation SCORE 5 MIN: 9 INFANT INFORMATION BABY A Gestational Age at Delivery: 37.1 Gestational Status: Early Term- 37- 38.6 Weeks Infant Outcome : Liveborn Condition : Stable Sex: Male IDENTIFICATION BABY A Verification Date/Time: 02/04/2019 16:57 ID Band Number: [id number] Mother's Name Verified: Yes Infant RN Verifying : Raymundo Huertas RN Additional Verifying Personnel: Candy Beavers RN WEIGHT/LENGTH BABY A Birthweight (gm): 3445 Weight (lb): 7 Infant Weight (oz): 10 Infant Length (in): 20.00 Length (cm): 50.80 CORD INFORMATION BABY A No. Cord Vessels: 3 Nuchal Cord : N/A Cord Blood Taken: Yes-For Storage (Mom's Blood type +) Suction: None ASSESSMENT BABY A Complications: None Physical Findings at Delivery: Within Normal Limits Infant Respirations: Appears Normal Skin to Skin: Yes Skin to Skin: Yes Tumbler Plater/ALS Called : No Care By: María Moreno Transferred To: Remains with Mother BABY B INFORMATION : N/A
== END 2019-02-06 14:30 | disposition home or self-care (01) | DRG 807 ==
LOC: LC 18:19 → LR 20:19 → 2S 02-04 19:41
PROVIDERS: ADMIT Obstetrics & Gynecology; ATTEND Obstetrics & Gynecology
PROC: 10E0XZZ Delivery of Products of Conception, External Approach (ICD-10-PCS; principal; 2019-02-04)
PROC: 3E033VJ Introduction of Other Hormone into Peripheral Vein, Percutaneous Approach (ICD-10-PCS; 2019-02-04)
PROC: 10907ZC Drainage of Amniotic Fluid, Therapeutic from Products of Conception, Via Natural or Artificial Opening (ICD-10-PCS; 2019-02-04)
DX: O99.344 Other mental disorders complicating childbirth (principal); Z37.0 Single live birth; F31.9 Bipolar disorder, unspecified; O99.334 Smoking (tobacco) complicating childbirth; F17.210 Nicotine dependence, cigarettes, uncomplicated; Z31.82 Encounter for Rh incompatibility status; Z79.899 Other long term (current) drug therapy; Z3A.37 37 weeks gestation of pregnancy
CPT/HCPCS: 36415; 76815; 76819; 80307; 81005; 84112; 85025; 85027; 86592; 86850; 86900; 86901; J2300; J2590; J3010; J3490; Q0114

== ENCOUNTER 2019-04-30 18:21 | Emergency (ER) | payer SELFPAY ==
--- NOTE | 2019-04-30 19:43 | ER Document Report ---
ED Medical Screen (RME) - General Chief Complaint: Psych Problem Stated Complaint: PSYCH EVAL Time Seen by Provider: 04/30/19 19:34 Primary Care Provider: WALLACE ZAMUDIO MD [Primary Care Provider] - Follow up as needed Notes: HPI: 24-year-old female brought in by police under IVC. Patient states she was in an argument with her mother edna who she believes is trying to take guardianship of her children. Patient states that she is on multiple medications for psychiatric disorders but is taking her medicines. She denies suicidal or homicidal ideation, denies thoughts of harming her children. Mother went to the [employer] and took out IVC papers on the patient for hostile behavior, not taking her medications, running down the street taking her clothes off. Patient denies any of this. I have greeted and performed a rapid initial assessment of this patient. A comprehensive ED assessment and evaluation of the patient, analysis of test results and completion of the medical decision making process will be conducted by additional ED providers PHYSICAL EXAMINATION: GENERAL: Well-appearing, well-nourished and in no acute distress. HEAD: Atraumatic, normocephalic. EYES: sclera anicteric, conjunctiva are normal. ENT: Moist mucous membranes. NECK: Normal range of motion LUNGS: Normal work of breathing HEART: 2+ radial pulses bilaterally ABD: limited by positioning for exam in triage. EXTREMITIES: no pitting or edema. No cyanosis. NEUROLOGICAL: No focal neurological deficits. Moves all extremities spontaneously and on command. PSYCH: Normal mood, normal affect. SKIN: Warm, Dry, normal turgor, no rashes or lesions noted. TRAVEL OUTSIDE OF THE [place] IN LAST 30 DAYS: No - Related Data Allergies/Adverse Reactions: No Known Allergies Allergy (Verified 01/24/19 23:50) Home Medications: Zyprexa. Citalapram. Cogentin. Gabapentin. Avega Past Medical History - Social History Chew tobacco use (# tins/day): No Frequency of alcohol use: None Drug Abuse: None Endocrine Medical History: Denies: Hx Diabetes Mellitus Type 2 Renal/ Medical History: Reports: Hx Kidney Stones, Hx Pelvic Inflammatory Disease. Denies: Hx Peritoneal Dialysis Skin Medical History: Reports Hx Cellulitis Psychiatric Medical History: Reports: Hx Bipolar Disorder, Hx Schizophrenia Past Surgical History: Reports: Hx Gynecologic Surgery - D & C - Immunizations Hx Diphtheria, Pertussis, Tetanus Vaccination: Yes Doctor's Discharge - Discharge Referrals: WALLACE ZAMUDIO MD [Primary Care Provider] - Follow up as needed
[2019-04-30 20:53] LABS: ABSOLUTE BASOPHILS # (AUTO) 0.1 10^3/uL (0.0-0.2); ABSOLUTE EOSINOPHILS # (AUTO) 0.5 10^3/uL (0.0-0.6); ABSOLUTE LYMPHOCYTES (AUTO) 2.9 10^3/uL (0.5-4.7); ABSOLUTE MONOCYTES (AUTO) 0.7 10^3/uL (0.1-1.4); ABSOLUTE NEUT (AUTO) 4.7 10^3/uL (1.7-8.2); BASOPHILS % (AUTO) 0.6 % (0-2); EOSINOPHILS % (AUTO) 5.6 % (0-6); HEMATOCRIT 37.6 % (36.0-47.0); LYMPHOCYTES % (AUTO) 32.6 % (13-45); MEAN CORPUSCULAR HEMOGLOBIN 29.8 pg (27.0-33.4); MEAN CORPUSCULAR HGB CONC 34.7 g/dL (32.0-36.0); MEAN CORPUSCULAR VOLUME 86 fl (80-97); MONOCYTES % (AUTO) 7.9 % (3-13); PLATELET COUNT 269 10^3/uL (150-450); RED BLOOD COUNT 4.37 10^6/uL (3.72-5.28); RED CELL DISTRIBUTION WIDTH 13.5 % (11.5-14.0); SEGMENTED NEUTROPHILS % (AUTO) 53.3 % (42-78); TOTAL CELLS COUNTED % (AUTO) 100 %; WHITE BLOOD COUNT 8.8 10^3/uL (4.0-10.5)
[2019-04-30 21:15] LABS: ALBUMIN 4.5 g/dL (3.5-5.0); ALKALINE PHOSPHATASE 71 U/L (38-126); ANION GAP 6 (5-19); ASPARTATE AMINO TRANSFERASE 17 U/L (14-36); BILIRUBIN,TOTAL 0.1 mg/dL (0.2-1.3); BLOOD UREA NITROGEN 11 mg/dL (7-20); CALCIUM 9.8 mg/dL (8.4-10.2); CARBON DIOXIDE 30 mmol/L (22-30); CHLORIDE 106 mmol/L (98-107); GLUCOSE 91 mg/dL (75-110); TOTAL PROTEIN 7.5 g/dL (6.3-8.2)
[2019-04-30 21:16] LABS: APPEARANCE,URINE SLIGHTLY-CLOUDY; BILIRUBIN,URINE NEGATIVE (NEGATIVE); COLOR,URINE YELLOW; GLUCOSE, URINE NEGATIVE (NEGATIVE); KETONES,URINE NEGATIVE (NEGATIVE); LEUKOCYTE ESTERASE,URINE TRACE (NEGATIVE); NITRITE,URINE NEGATIVE (NEGATIVE); PROTEIN,URINE NEGATIVE (NEGATIVE); URINE SPECIFIC GRAVITY 1.012; UROBILINOGEN,URINE NEGATIVE mg/dL (<2.0)
[2019-04-30 21:22] LABS: ACETAMINOPHEN < 10 ug/mL (10-30); ALCOHOL < 10 mg/dL (NONE DETECTED); SALICYLATE < 1.0 mg/dL (2.0-20.0)
[2019-04-30 21:23] LABS: URINE AMPHETAMINES SCREEN NEGATIVE; URINE BARBITURATES SCREEN NEGATIVE; URINE BENZODIAZEPINES SCREEN NEGATIVE; URINE COCAINE SCREEN NEGATIVE; URINE MARIJUANA (THC) SCREEN NEGATIVE; URINE METHADONE SCREEN NEGATIVE; URINE PHENCYCLIDINE SCREEN NEGATIVE
--- NOTE | 2019-04-30 23:43 | ER Document Report ---
ED General - General Chief Complaint: Psych Problem Stated Complaint: PSYCH EVAL Time Seen by Provider: 04/30/19 19:34 Primary Care Provider: WALLACE ZAMUDIO MD [ACTIVE STAFF] - Follow up as needed Mode of Arrival: Ambulatory Information source: Patient TRAVEL OUTSIDE OF THE [place] IN LAST 30 DAYS: No - HPI Onset: This afternoon Onset/Duration: Gradual Quality of pain: No pain Severity: Mild Pain Level: Denies Associated symptoms: None Exacerbated by: Denies Relieved by: Denies Similar symptoms previously: No Recently seen / treated by doctor: No Notes: 24 year old female with a history of bipolar and depression (her medical chart says Bipolar and Schizophrenia however) brought to the ER with IVC papers due to getting in an altercation with her mother. The mother apparently reported the patient has been running around naked and is not fit to watch her children. The patient says this is not the case. The patient has no SI or HI at this time. The patient lives with her mother and her children. - Related Data Allergies/Adverse Reactions: No Known Allergies Allergy (Verified 01/24/19 23:50) Home Medications: Zyprexa. Citalapram. Cogentin. Gabapentin. Avega Past Medical History - General Information source: Patient - Social History Smoking Status: Current Every Day Smoker Chew tobacco use (# tins/day): No Frequency of alcohol use: None Drug Abuse: None Lives with: Family Family History: Reviewed & Not Pertinent, Other - Father Hx of Schizophrenia Patient has suicidal ideation: No Patient has homicidal ideation: No Endocrine Medical History: Denies: Hx Diabetes Mellitus Type 2 Renal/ Medical History: Reports: Hx Kidney Stones, Hx Pelvic Inflammatory Disease. Denies: Hx Peritoneal Dialysis Skin Medical History: Reports Hx Cellulitis Psychiatric Medical History: Reports: Hx Bipolar Disorder, Hx Schizophrenia Past Surgical History: Reports: Hx Gynecologic Surgery - D & C - Immunizations Hx Diphtheria, Pertussis, Tetanus Vaccination: Yes Review of Systems - Review of Systems Constitutional: No symptoms reported EENT: No symptoms reported Cardiovascular: No symptoms reported Respiratory: No symptoms reported Gastrointestinal: No symptoms reported Genitourinary: No symptoms reported Female Genitourinary: No symptoms reported Musculoskeletal: No symptoms reported Skin: No symptoms reported Hematologic/Lymphatic: No symptoms reported Neurological/Psychological: Other - fight with mother. denies: Homicidal idea tion, Suicidal ideation -: Yes All other systems reviewed and negative Physical Exam - Vital signs Vitals: Temp Pulse Resp BP Pulse Ox 97.6 F 75 16 101/69 100 04/30/19 21:10 04/30/19 21:10 04/30/19 21:10 04/30/19 21:10 04/30/19 21:10 - Notes Notes: GENERAL: Well-appearing, well-nourished and in no acute distress. HEAD: Atraumatic, normocephalic. EYES: Pupils equal round and reactive to light, extraocular movements intact, sclera anicteric, conjunctiva are normal. ENT: TMs normal, nares patent, oropharynx clear without exudates. Moist mucous membranes. NECK: Normal range of motion, supple without lymphadenopathy or JVD. LUNGS: Breath sounds clear to auscultation bilaterally and equal. No wheezes rales or rhonchi. HEART: Regular rate and rhythm without murmurs, rubs or gallops. ABDOMEN: Soft, nontender, normoactive bowel sounds. No guarding, no rebound. No masses appreciated. EXTREMITIES: Normal range of motion, no pitting or edema. No clubbing or cyanosis. NEUROLOGICAL: Cranial nerves II through XII grossly intact. Normal speech, normal gait. PSYCH: Normal mood, normal affect. Denies HI or SI. SKIN: Warm, Dry, normal turgor, no rashes or lesions noted. Course - Re-evaluation Re-evalutation: 04/30/19 23:45 The patient is medically cleared and awaiting psych evaluation and dispo since IVC papers had been taken out by the patient's mother. - Vital Signs Vital signs: Temp Pulse Resp BP Pulse Ox 97.6 F 75 16 101/69 100 04/30/19 21:10 04/30/19 21:10 04/30/19 21:10 04/30/19 21:10 04/30/19 21:10 - Laboratory Result Diagrams: 04/30/19 20:25 04/30/19 20:25 Laboratory results interpreted by me: 04/30/19 04/30/19 20:25 20:52 Total Bilirubin 0.1 L Ur Leukocyte Esterase TRACE H Salicylates < 1.0 L Acetaminophen < 10 L - EKG Interpretation by Ms EKG shows normal: Sinus rhythm, [place], Intervals, QRS Complexes, ST-T Waves Rate: Normal Rhythm: NSR Discharge - Discharge Clinical Impression: Aggression Condition: Stable Disposition: OTHER Referrals: WALLACE ZAMUDIO MD [ACTIVE STAFF] - Follow up as needed
--- NOTE | 2019-05-01 11:56 | PSYCHOLOGICAL NOTE ---
Psych Note - Psych Note Date seen by psych provider: 05/01/19 Time seen by psych provider: 08:40 Psych Note: Reason For Consult:IVC Presented to [facility] ED under IVC petitioned by her mother. Petition states the patient has not been taking her medications and is experiencing auditory and visual hallucinations. He continued to report that she is verbally aggressive and runs down the street at times naked. Patient reportedly also jumps into strangers cars. Reported that the patrol sergeant sheriff's office brought her to [facility] ED because her mom went to the [employer] and took papers out on her. She reports that they got into a fight and her mother was angry "so it is her way of getting back at me." She denies that any emergency personnel or mobile crisis responded last night. She states that she has been doing really well but only experiences psychosis "every now and then when I am off my medication." She denies any thoughts of wanting to harm herself or others or experiencing any concerns in regards to hearing or seeing things that could use or scare her. Behavior health team spoke with petitioner; please see mental health note. Patient is alert and orientated to person, place, time and circumstance. Mood is euthymic with congruent affect. Patient denies suicidal and homicidal ideation. Delusions are absent and behaviors congruent with an intact reality based presentation I organized and linear thought process. Eye contact is well- maintained. Conversational speech is within normal rate, tone and prosody. Intellectual abilities appear to be within the average range. Attention and concentration are good. Insight, judgment, impulse control are fair. Medication recommendations per [facility]'s contracted psychiatrist Dr. Allen RIOJAS are as follows Haldol Decanoate 100 mg once Haldol 5 mg p.o. twice daily Cogentin 1 mg p.o. daily Impression\\plan: Dr. Rasmussen was consulted to care management of this patient; attending physicians in agreement with recommendations and disposition.
[2019-05-01] MEDS ORDERED: HALOPERIDOL 5 MG TABLET PO ONE (12:50)
[2019-05-01] MEDS ORDERED: BENZTROPINE MESYLATE 1 MG TABLET PO ONE (12:51)
[2019-05-01] MEDS ORDERED: HALOPERIDOL DECANOATE INJ 100 MG/1 ML VIAL IM ONE (12:51)
--- NOTE | 2019-05-01 12:52 | ER Document Report ---
Doctor's Note Notes: 05/01/19 12:50 S: Rounded on patient this morning. She is feeling pretty good today. She had IVC papers taken out on her last night by her mother for abnormal behavior. Apparently she was running around without her clothes on and cannot take care of her children. She does have a history of psychosis. Patient states that she is not been having any hallucinations. She has not had any SI or HI. Apparently she supposed to be InVega and has not had her medicine appropriately. Our behavioral health team has seen the patient and lined her up to try to get appropriate medical management. Unfortunately we do not have InVega in the hospital so to help her with control of her psychosis behavioral health team has suggested that we give a Haldol injection as well as Haldol daily with Cogentin. O: Constitutional: Alert and oriented in no acute distress Cardiac: Regular rate and rhythm, no murmurs, gallops, or rubs Pulm: Clear to auscultation bilaterally, no wheezes, rhonchi's, rales Abdomen: Soft, nontender, nondistended, obese psych:Good eye contact, cooperative. Denies SI. Denies HI, hallucinations Skin: Good turgor, warm, and dry A/P: I discussed this patient with behavioral health team. Her IVC paperwork has been rescinded by Armin on our behavioral health team. Patient is not having any SI, HI, hallucinations. I feel it is very appropriate that her IVC paperwork was rescinded. She will be sent home with a prescription for Haldol and Cogentin for 2 weeks. She will get Haldol injection here as well as Haldol tablet and Cogentin now. Patient is aware of this plan and agrees. [facility] is involved in her case and they will work on getting her appropriate medical management.
[2019-05-01 13:27] VITALS: BP 112/83
--- NOTE | 2019-05-01 18:22 | EKG REPORT ---
SEVERITY:- OTHERWISE NORMAL ECG - SINUS RHYTHM ST ELEV, PROBABLE NORMAL EARLY REPOL PATTERN : Confirmed by: Lindsay Knott MD 01-May-2019 18:21:55
== END 2019-05-01 13:32 | disposition home or self-care (01) ==
LOC: ER 18:21
DX: F91.8 Other conduct disorders (principal); F32.9 Major depressive disorder, single episode, unspecified; Z79.899 Other long term (current) drug therapy; F17.200 Nicotine dependence, unspecified, uncomplicated; E11.9 Type 2 diabetes mellitus without complications
CPT/HCPCS: 93005; 99285; 96372; 36415; 80307 ×4; 84703; 85025; 80053; 81001; 93010; J1631

== ENCOUNTER 2019-06-25 02:25 | Inpatient (IN) | payer SELFPAY ==
[2019-06-25 03:10] LABS: ABSOLUTE BASOPHILS # (AUTO) 0.1 10^3/uL (0.0-0.2); ABSOLUTE EOSINOPHILS # (AUTO) 0.4 10^3/uL (0.0-0.6); ABSOLUTE LYMPHOCYTES (AUTO) 2.2 10^3/uL (0.5-4.7); ABSOLUTE MONOCYTES (AUTO) 0.7 10^3/uL (0.1-1.4); ABSOLUTE NEUT (AUTO) 6.5 10^3/uL (1.7-8.2); BASOPHILS % (AUTO) 0.5 % (0-2); EOSINOPHILS % (AUTO) 3.9 % (0-6); HEMATOCRIT 39.4 % (36.0-47.0); HEMOGLOBIN 13.8 g/dL (12.0-15.5); LYMPHOCYTES % (AUTO) 22.7 % (13-45); MEAN CORPUSCULAR HEMOGLOBIN 30.1 pg (27.0-33.4); MEAN CORPUSCULAR VOLUME 86 fl (80-97); MONOCYTES % (AUTO) 6.7 % (3-13); PLATELET COUNT 227 10^3/uL (150-450); RED BLOOD COUNT 4.58 10^6/uL (3.72-5.28); RED CELL DISTRIBUTION WIDTH 14.1 % (11.5-14.0); SEGMENTED NEUTROPHILS % (AUTO) 66.2 % (42-78); TOTAL CELLS COUNTED % (AUTO) 100 %; WHITE BLOOD COUNT 9.8 10^3/uL (4.0-10.5)
[2019-06-25 03:22] LABS: ALBUMIN 4.5 g/dL (3.5-5.0); ALKALINE PHOSPHATASE 238 U/L (38-126); ANION GAP 8 (5-19); ASPARTATE AMINO TRANSFERASE 188 U/L (14-36); BILIRUBIN,DIRECT 3.1 mg/dL (0.0-0.4); BILIRUBIN,TOTAL 4.1 mg/dL (0.2-1.3); BLOOD UREA NITROGEN 14 mg/dL (7-20); CALCIUM 9.4 mg/dL (8.4-10.2); CARBON DIOXIDE 24 mmol/L (22-30); CHLORIDE 108 mmol/L (98-107); GLUCOSE 92 mg/dL (75-110); POTASSIUM 3.9 mmol/L (3.6-5.0); TOTAL PROTEIN 7.6 g/dL (6.3-8.2)
[2019-06-25 03:26] LABS: APPEARANCE,URINE CLEAR; BILIRUBIN,URINE SMALL (NEGATIVE); COLOR,URINE AMBER; GLUCOSE, URINE NEGATIVE (NEGATIVE); KETONES,URINE NEGATIVE (NEGATIVE); LEUKOCYTE ESTERASE,URINE SMALL (NEGATIVE); NITRITE,URINE NEGATIVE (NEGATIVE); PROTEIN,URINE NEGATIVE (NEGATIVE); URINE SPECIFIC GRAVITY 1.015
[2019-06-25] MEDS ORDERED: MORPHINE SULFATE 10 MG/ML INJ IV ONE (04:03)
[2019-06-25] MEDS ORDERED: ONDANSETRON HCL INJ/PF 4 MG/2 ML SDV IV ONE (04:03)
--- NOTE | 2019-06-25 04:14 | ER Document Report ---
ED General - General TRAVEL OUTSIDE OF THE [place] IN LAST 30 DAYS: No - Related Data Home Medications: Gabapentin, celexa, invega <NAHID RESENDEZ - Last Filed: 06/25/19 06:27> <WILLIAM ALEJANDRO - Last Filed: 06/25/19 08:55> - General Chief Complaint: Abdominal Pain Stated Complaint: ABDOMINAL PAIN Time Seen by Provider: 06/25/19 03:02 - HPI Notes: Patient is a 24-year-old female with a known history of gallstones who presents to the emergency department for evaluation of right upper quadrant abdominal pain and vomiting. She states her pain started about 9 PM. She had macaroni and cheese for dinner. No william fevers to her knowledge. She has had 6 episodes of nonbloody, nonbilious emesis. She is states her pain is sharp and stabbing, currently rates it an 8 out of 10. Nothing seems to make it better or worse. She also noted that her urine became darker this evening. (NAHID RESENDEZ) - Related Data Allergies/Adverse Reactions: No Known Allergies Allergy (Verified 01/24/19 23:50) Past Medical History - General Information source: Patient - Social History Smoking Status: Current Every Day Smoker Frequency of alcohol use: None Drug Abuse: None Family History: Reviewed & Not Pertinent, Other - Father Hx of Schizophrenia Patient has suicidal ideation: No Patient has homicidal ideation: No Endocrine Medical History: Denies: Hx Diabetes Mellitus Type 2 Renal/ Medical History: Reports: Hx Kidney Stones, Hx Pelvic Inflammatory Disease. Denies: Hx Peritoneal Dialysis Skin Medical History: Reports Hx Cellulitis Psychiatric Medical History: Reports: Hx Bipolar Disorder, Hx Schizophrenia Past Surgical History: Reports: Hx Gynecologic Surgery - D & C - Immunizations Hx Diphtheria, Pertussis, Tetanus Vaccination: Yes <NAHID RESENDEZ - Last Filed: 06/25/19 06:27> Review of Systems - Review of Systems Gastrointestinal: See HPI Genitourinary: See HPI -: Yes All other systems reviewed and negative <NAHID RESENDEZ - Last Filed: 06/25/19 06:27> Physical Exam <NAHID RESENDEZ - Last Filed: 06/25/19 06:27> - Vital signs Vitals: Temp Pulse Resp BP Pulse Ox 97.9 F 87 18 101/75 99 06/25/19 02:29 06/25/19 02:29 06/25/19 02:29 06/25/19 02:29 06/25/19 02:29 - Notes Notes: Vital signs reviewed, please refer to chart. Head is normocephalic, atraumatic. Pupils equal round, reactive to light. Neck is supple without meningismus. Heart is regular rate and rhythm. Lungs are clear to auscultation bilaterally. Abdomen is soft, moderately tender in the right upper quadrant with some voluntary guarding, no rebound, normoactive bowel sounds throughout. Extremities without cyanosis, clubbing. Posterior calves are nontender. P eripheral pulses are equal. Skin is warm and dry. Patient is awake, alert, neurological exam is nonfocal. (NAHID RESENDEZ) Course - Laboratory Result Diagrams: 06/25/19 02:56 06/25/19 02:56 - Diagnostic Test Radiology reviewed: Image reviewed, Reports reviewed <NAHID RESENDEZ - Last Filed: 06/25/19 06:27> - Laboratory Result Diagrams: 06/25/19 02:56 06/25/19 02:56 <WILLIAM ALEJANDRO - Last Filed: 06/25/19 08:55> - Re-evaluation Re-evalutation: 06/25/19 04:13 Patient presents to the emergency department for evaluation. Laboratory investigations were ordered. Patient here by herself, decision was made to defer pain medication initially. Her LFTs came back elevated. I am concerned about an obstructive stone at this time. Patient was given morphine, Zofran. She is kept n.p.o. CT scan of the abdomen pelvis with IV contrast was ordered. She is stable, we will continue to monitor. 06/25/19 06:[address] scan was inconclusive for any clear gallbladder pathology, but I do have a strong suspicion for possible choledocholithiasis or other obstructive situation. Patient remained stable. Right upper quadrant ultrasound was ordered. Care of this patient was turned over to Dr. Alejandro, please see his note for the remainder of the patient's ED course and disposition. (NAHID RESENDEZ) - Vital Signs Vital signs: Temp Pulse Resp BP Pulse Ox 97.9 F 87 18 101/75 99 06/25/19 02:29 06/25/19 02:29 06/25/19 02:29 06/25/19 02:29 06/25/19 02:29 - Laboratory Laboratory results interpreted by me: 06/25/19 06/25/19 06/25/19 02:56 02:56 03:12 RDW 14.1 H Chloride 108 H Total Bilirubin 4.1 H Direct Bilirubin 3.1 H AST 188 H ALT 455 H Alkaline Phosphatase 238 H Urine Bilirubin SMALL H Urine Urobilinogen 4.0 H Ur Leukocyte Esterase SMALL H Urine Ascorbic Acid 40 H Discharge <NAHID RESENDEZ - Last Filed: 06/25/19 06:27> - Discharge Admitting Provider: Surgicalist - su Unit Admitted: Surgical Floor <WILLIAM ALEJANDRO - Last Filed: 06/25/19 08:55> - Discharge Clinical Impression: Abnormal LFTs, Common bile duct (CBD) obstruction Cholecystitis, acute with cholelithiasis Qualifiers: Biliary obstruction: with biliary obstruction Qualified Code(s): K80.01 - Calculus of gallbladder with acute cholecystitis with obstruction Condition: Stable Disposition: ADMITTED INPATIENT
--- NOTE | 2019-06-25 05:15 | RADIOLOGY REPORT (SQ) ---
CT abdomen and pelvis with contrast on 06/25/2019 at 4:27 AM CLINICAL INDICATION: Right upper quadrant pain, elevated LFTs TECHNIQUE: Multiple axial images are obtained throughout the abdomen and pelvis following the administration of IV contrast, 62 mL of Omnipaque 350contrast was administered intravenously without complication. This exam was performed according to our departmental dose-optimization program, which includes automated exposure control, adjustment of the mA and/or kV according to patient size and/or use of iterative reconstruction technique. Total DLP is 521.88 mGy*cm. COMPARISON: 08/20/2015 FINDINGS: Abdomen: The lung bases are clear. The solid abdominal organs are unremarkable. There is no abdominal adenopathy. There is no free fluid or free air within the abdomen. The abdominal portion of the GI tract is unremarkable. Pelvis: Small amount of free fluid in the pelvis is likely physiologic. Uterus is slightly retroverted/retroflexed. Pelvic organs otherwise appear unremarkable by CT. There is no pelvic adenopathy. Pelvic portion of the GI tract including the appendix is unremarkable. No acute bony abnormality is noted. IMPRESSION: Essentially unremarkable exam.
--- NOTE | 2019-06-25 07:17 | RADIOLOGY REPORT (SQ) ---
Ultrasound right upper quadrant on 06/25/2019 at 6:19 AM CLINICAL INDICATION: Right upper quadrant pain, elevated LFTs COMPARISON: CT from 06/25/2019 FINDINGS: Multiple sonographic images are obtained throughout the right upper quadrant, both transverse and sagittal images are obtained. Visualized pancreas is unremarkable. Visualized liver is homogeneous without focal liver lesion. Visualized hepatic vasculature is patent and with a normal directional flow. Right kidney shows no hydronephrosis. There are a few echogenic foci with posterior shadowing in the gallbladder consistent with small gallstones including one in the gallbladder neck. Mild gallbladder wall thickening is noted. Common duct measures 5-6 mm which is upper limits of normal mitigating against obstruction of the biliary tree. Small amount of pericholecystic fluid is noted. IMPRESSION: Cholelithiasis with findings raising the question of early acute cholecystitis. If surgery is not initially considered, consider follow-up with hepatobiliary scan.
--- NOTE | 2019-06-25 08:53 | PDOC H&P ---
History of Present Illness Patient complains of: Abdominal pain History of Present Illness: TOMAS GOLDSTEIN is a 24 year old female with known history of gallstones since her several months ago now presenting with one-week history of intermittent right upper quadrant abdominal pain radiating to her back along with nausea and vomiting but no fever. She has noted that the pain has been persistent over the last 3 days and has decreased with morphine in the ER. Patient has also noted some dark urine in the last couple of days. No prior surgeries and no history of alcohol abuse and no past medical history other than her bipolar disorder and schizoaffective disorder. Past Medical History Cardiac Medical History: Reports: None Pulmonary Medical History: Reports: None EENT Medical History: Reports: None Neurological Medical History: Reports: None Endocrine Medical History: Reports: None Denies: Diabetes Mellitus Type 2 Renal/ Medical History: Reports: None Malignancy Medical History: Reports: None GI Medical History: Reports: Other - History of gallstones Psychiatric Medical History: Reports: Bipolar Disorder Traumatic Medical History: Reports: None Hematology: Reports: None Infectious Medical History: Reports: None Past Surgical History Past Surgical History: Reports: None, Other - Normal vaginal delivery 5 months ago Social History Smoking Status: Current Every Day Smoker Frequency of Alcohol Use: None Hx Recreational Drug Use: No Hx Prescription Drug Abuse: No Family History Family History: Reviewed & Not Pertinent, Other - Father Hx of Schizophrenia Parental Family History Reviewed: Yes Children Family History Reviewed: Yes Sibling(s) Family History Reviewed.: Yes - Diabetes Medication/Allergy Home Medications: Vits96/Iron Fum/Folic [ Tablet] 1 each PO DAILY 10/02/18 Gabapentin [Neurontin 100 mg Capsule] 100 mg PO DAILY 01/24/19 Docusate Sodium [Colace 100 mg Capsule] 100 mg PO BID #60 capsule 02/06/19 Ferrous Sulfate [Feosol 325 mg Tablet] 325 mg PO BID #60 tablet 02/06/19 Ibuprofen [Motrin 800 mg Tablet] 800 mg PO Q8HP PRN #20 tablet 02/06/19 Benztropine Mesylate [Cogentin 1 mg Tablet] 1 mg PO DAILY #14 tablet 05/01/19 Haloperidol [Haldol 5 mg Tablet] 5 mg PO BID #28 tablet 05/01/19 Allergies/Adverse Reactions: No Known Allergies Allergy (Verified 01/24/19 23:50) Review of Systems All systems: reviewed and no additional remarkable complaints except as stated Constitutional: PRESENT: chills Gastrointestinal: PRESENT: as per HPI Physical Exam Vital Signs: Temp Pulse Resp BP Pulse Ox 97.9 F 87 18 101/75 99 06/25/19 02:29 06/25/19 02:29 06/25/19 02:29 06/25/19 02:29 06/25/19 02:29 Intake & Output 06/24/19 06/25/19 06/26/19 06:59 06:59 06:59 Weight 54.431 kg General appearance: PRESENT: no acute distress, cooperative Eye exam: PRESENT: conjunctiva pink Neck exam: PRESENT: other - Supple with no tenderness Respiratory exam: PRESENT: clear to auscultation karen Cardiovascular exam: PRESENT: RRR GI/Abdominal exam: PRESENT: other - Soft, nondistended, mild the right upper quadrant abdominal tenderness without peritoneal signs. Extremities exam: PRESENT: other - no swelling and no tenderness Neurological exam: PRESENT: alert, awake Psychiatric exam: PRESENT: appropriate affect Skin exam: PRESENT: warm Results Laboratory Results: 06/25/19 02:56 06/25/19 02:56 06/25/19 06/25/19 06/25/19 02:56 02:56 03:12 WBC 9.8 RBC 4.58 Hgb 13.8 Hct 39.4 MCV 86 MCH 30.1 MCHC 35.0 RDW 14.1 H Plt Count 227 Seg Neutrophils % 66.2 Sodium 140.1 Potassium 3.9 Chloride 108 H Carbon Dioxide 24 Anion Gap 8 BUN 14 Creatinine 0.76 Est GFR ( Amer) > 60 Glucose 92 Calcium 9.4 Total Bilirubin 4.1 H AST 188 H Alkaline Phosphatase 238 H Total Protein 7.6 Albumin 4.5 Lipase 244.9 Urine Color GIOVANNI Urine Appearance CLEAR Urine pH 5.0 Ur Specific [place] 1.015 Urine Protein NEGATIVE Urine Glucose (UA) NEGATIVE Urine Ketones NEGATIVE Urine Blood NEGATIVE Urine Nitrite NEGATIVE Ur Leukocyte Esterase SMALL H Urine WBC (Auto) 16 Urine RBC (Auto) 2 Impressions: Abdomen/Pelvis CT 06/25/19 04:01 IMPRESSION: Essentially unremarkable exam. Abdomen Ultrasound 06/25/19 05:58 IMPRESSION: Cholelithiasis with findings raising the question of early acute cholecystitis. If surgery is not initially considered, consider follow-up with hepatobiliary scan. Assessment & Plan - Diagnosis (1) Cholecystitis, acute with cholelithiasis Qualifiers: Biliary obstruction: with biliary obstruction Qualified Code(s): K80.01 - Calculus of gallbladder with acute cholecystitis with obstruction Is this a current diagnosis for this admission?: Yes Plan: Patient with symptomatic cholelithiasis, probable cholecystitis along with choledocholithiasis. We will plan to admit the patient and performed laparoscopic cholecystectomy with possible intraoperative cholangiogram. We will plan to have her undergo ERCP tomorrow. I have discussed with her risk and benefits of surgery including risk of conversion to an open procedure, infection, bleeding, bile duct and intestinal injury, postcholecystectomy diarrhea. Patient understands and agrees to proceed. I will discuss this surgery with her mother as well prior to surgery once her mother comes in.
[2019-06-25] MEDS ORDERED: AMPICILLIN SOD/SULBACTAM 3 GM VIAL IV SCH (09:00)
[2019-06-25] MEDS: NORMAL SALINE 1000 ML 1,000 ML IV PRN ×2 (09:35→17:42)
[2019-06-25] MEDS ORDERED: GLYCOPYRROLATE 1 MG/5 ML VIAL ONE (11:26)
[2019-06-25] MEDS ORDERED: SUCCINYLCHOLINE CHLORIDE INJ 200 MG/10 ML VIAL ONE (11:26)
[2019-06-25] MEDS ORDERED: NEOSTIGMINE METHYLSULFATE 10 MG/10 ML VIAL ONE (11:26)
[2019-06-25] MEDS ORDERED: ROCURONIUM BROMIDE INJ 50 MG/5 ML VIAL IV ONE (11:26)
[2019-06-25] MEDS ORDERED: MIDAZOLAM 2 MG/2 ML INJ ONE (13:43)
[2019-06-25] MEDS ORDERED: DEXAMETHASONE SOD PHOSPHATE INJ 4 MG/1 ML VIAL ONE (13:43)
[2019-06-25] MEDS ORDERED: ONDANSETRON HCL INJ/PF 4 MG/2 ML SDV ONE (13:43)
[2019-06-25] MEDS ORDERED: FENTANYL CITRATE INJ/PF 100 MCG/2 ML AMPUL ONE ×2 (13:43→16:54)
[2019-06-25] MEDS ORDERED: KETOROLAC TROMETHAMINE 60 MG/2 ML SDV ONE (13:43)
[2019-06-25] MEDS ORDERED: PROPOFOL INJ 200 MG/20 ML VIAL IV ONE (13:44)
[2019-06-25] MEDS: AMPICILLIN SODIUM/SULBACTAM NA 3 GM in NORMAL SALINE 100 ML IV SCH ×2 (15:00→21:16)
[2019-06-25] MEDS ORDERED: PROMETHAZINE HCL INJ 25 MG/1 ML VIAL IV PRN (15:20)
[2019-06-25] MEDS ORDERED: FENTANYL CITRATE INJ/PF 100 MCG/2 ML AMPUL IV PRN ×3 (15:20)
[2019-06-25] MEDS ORDERED: DIPHENHYDRAMINE HCL 50 MG/ML VIAL IV PRN (15:20)
[2019-06-25] MEDS ORDERED: MORPHINE SULFATE 10 MG/ML INJ IV PRN (15:20)
[2019-06-25] MEDS: BUPIVACAINE HCL 0.25 % INJ/PF (2.5 MG/1 ML) 30 ML VIAL ONE ×2 (15:46→16:28)
--- NOTE | 2019-06-25 16:55 | RADIOLOGY REPORT (SQ) ---
EXAM DESCRIPTION: CHOLANGIOGRAM OPERATIVE; NO CHG FLUORO IMAGES COMPLETED DATE/TIME: 06/25/2019 4:35 pm REASON FOR STUDY: IOC IN OR COMPARISON: Right upper quadrant ultrasound 06/25/2019 CT abdomen pelvis 06/25/2019 FLUOROSCOPY TIME: 1.2 minutes 8 digital fluoroscopic images saved to PACS. TECHNIQUE: Intra-operative images acquired during surgical procedure to evaluate progress. NUMBER OF IMAGES: 8 digital fluoroscopic images saved to pac's LIMITATIONS: None. FINDINGS: Contrast injected into the cystic duct stump during laparoscopic cholecystectomy. There i s reflux into mildly dilated intrahepatic ducts, common hepatic duct and common bile duct. No flow of contrast into the duodenum. There is a filling defect in the distal common duct worrisome for retained stone. These findings were discussed with Dr. Lilly IMPRESSION: Distal common bile duct stone with mild biliary ductal dilatation COMMENT: Quality ID [id number]: Final reports for procedures using fluoroscopy that document radiation exp osure indices, or exposure time and number of fluorographic images (if radiation exposure indices are not available) Please consult full operative report of the attending physician for description of the procedure. TECHNICAL DOCUMENTATION: JOB ID: [id number] 2010 [employer]- All Rights Reserved Reading location - IP/workstation name: [id number]
--- NOTE | 2019-06-25 16:55 | RADIOLOGY REPORT (SQ) ---
EXAM DESCRIPTION: CHOLANGIOGRAM OPERATIVE; NO CHG FLUORO IMAGES COMPLETED DATE/TIME: 06/25/2019 4:35 pm REASON FOR STUDY: IOC IN OR COMPARISON: Right upper quadrant ultrasound 06/25/2019 CT abdomen pelvis 06/25/2019 FLUOROSCOPY TIME: 1.2 minutes 8 digital fluoroscopic images saved to PACS. TECHNIQUE: Intra-operative images acquired during surgical procedure to evaluate progress. NUMBER OF IMAGES: 8 digital fluoroscopic images saved to pac's LIMITATIONS: None. FINDINGS: Contrast injected into the cystic duct stump during laparoscopic cholecystectomy. There i s reflux into mildly dilated intrahepatic ducts, common hepatic duct and common bile duct. No flow of contrast into the duodenum. There is a filling defect in the distal common duct worrisome for retained stone. These findings were discussed with Dr. Lilly IMPRESSION: Distal common bile duct stone with mild biliary ductal dilatation COMMENT: Quality ID [id number]: Final reports for procedures using fluoroscopy that document radiation exp osure indices, or exposure time and number of fluorographic images (if radiation exposure indices are not available) Please consult full operative report of the attending physician for description of the procedure. TECHNICAL DOCUMENTATION: JOB ID: [id number]- All Rights Reserved Reading location - IP/workstation name: [email or web address]
--- NOTE | 2019-06-25 16:58 | Operative Report ---
Operative Report DATE OF SURGERY: 06/25/19 PREOPERATIVE DIAGNOSIS: Cholecystitis, cholelithiasis, choledocholithiasis. POSTOPERATIVE DIAGNOSIS: Same OPERATION: Laparoscopic cholecystectomy with intraoperative cholangiogram. SURGEON: STEFANIA BRICENO ANESTHESIA: GA TISSUE REMOVED OR ALTERED: Gallbladder COMPLICATIONS: None ESTIMATED BLOOD LOSS: 20 cc INTRAOPERATIVE FINDINGS: Edematous gallbladder wall, gallstones, evidence of distal common bile duct obstruction likely due to gallstone. PROCEDURE: Informed consent was obtained. Patient was brought to the operating room placed operating table in supine position. After satisfactory induction of general anesthesia, patient's abdomen was prepped and draped in usual sterile fashion. A infra umbilical midline incision was made and dissection carried down to the fascia the peritoneal cavity entered without difficulty. Martin trocar was inserted. Pneumoperitoneum produced good patient toleration. 5 mm trocar was placed in the subxiphoid location.Two 5 mm trochars were placed in the right subcostal location. The gallbladder appeared distended and edematous. The gallbladder was grasped and retracted cephalad over the dome of the liver. The infundibulum of the gallbladder was grasped retracted laterally and inferiorly thus exposing calot's triangle. The cystic duct gallbladder junction was clearly identified. Cystic artery was clipped and divided. The cystic duct was clipped next to the gallbladder and then partially transected and bile was seen extruding out. Intraoperative cholangiogram was then performed. Initially I had some leak from the introduction site but after repositioning, the cholangiogram was able to be performed without difficulty. The right and left hepatic ducts and the common hepatic duct and the common bile duct were all visualized. There was evidence of a stone at the distal common bile duct with no passage of contrast beyond this point. No contrast went into the duodenum due to this evident obstructive process. The cholangiocatheter was removed and the cystic duct was then clipped and completely divided. The the gallbladder was taken off the gallbladder bed using the hook electrocautery technique. The gallbladder was removed with an Endobag through the Martin trocar site fascial defect. The operative field was irrigated and irrigant aspirated out. Irrigation fluid was perfectly clear at the end of the case. Hemostasis appeared excellent. All trochars were removed under the direct vision a laparoscope to ensure hemostasis. The Martin trocar site fascial defect was closed with interrupted Vicryl sutures. All skin incisions were closed with subcuticular interrupted Monocryl sutures. Marcaine was injected at the port sites. Patient tolerated procedure well no apparent complications and was taken to the recovery area in stable condition.
[2019-06-25] MEDS ORDERED: PALIPERIDONE PALMITATE IM SCH (17:00)
[2019-06-25] MEDS: GABAPENTIN 100 MG CAPSULE PO SCH ×2 (17:37→21:16)
[2019-06-25] MEDS: BENZTROPINE MESYLATE 1 MG TABLET PO SCH (17:38)
[2019-06-25] MEDS: MORPHINE SULFATE 10 MG/ML INJ IV PRN ×2 (17:39→22:55)
[2019-06-26] MEDS: NORMAL SALINE 1000 ML 1,000 ML IV PRN ×2 (03:48→14:48)
[2019-06-26] MEDS: MORPHINE SULFATE 10 MG/ML INJ IV PRN ×4 (03:48→23:59)
[2019-06-26] MEDS: AMPICILLIN SODIUM/SULBACTAM NA 3 GM in NORMAL SALINE 100 ML IV SCH ×3 (05:36→21:39)
[2019-06-26 06:40] LABS: ABSOLUTE BASOPHILS # (AUTO) 0.1 10^3/uL (0.0-0.2); ABSOLUTE EOSINOPHILS # (AUTO) 0.1 10^3/uL (0.0-0.6); ABSOLUTE LYMPHOCYTES (AUTO) 2.1 10^3/uL (0.5-4.7); ABSOLUTE MONOCYTES (AUTO) 0.7 10^3/uL (0.1-1.4); ABSOLUTE NEUT (AUTO) 7.1 10^3/uL (1.7-8.2); BASOPHILS % (AUTO) 0.5 % (0-2); LYMPHOCYTES % (AUTO) 20.9 % (13-45); MEAN CORPUSCULAR HEMOGLOBIN 30.1 pg (27.0-33.4); MEAN CORPUSCULAR HGB CONC 35.3 g/dL (32.0-36.0); MEAN CORPUSCULAR VOLUME 85 fl (80-97); MONOCYTES % (AUTO) 7.2 % (3-13); PLATELET COUNT 209 10^3/uL (150-450); RED BLOOD COUNT 3.99 10^6/uL (3.72-5.28); RED CELL DISTRIBUTION WIDTH 13.8 % (11.5-14.0); SEGMENTED NEUTROPHILS % (AUTO) 70.4 % (42-78); TOTAL CELLS COUNTED % (AUTO) 100 %
[2019-06-26 06:56] LABS: ALBUMIN 3.2 g/dL (3.5-5.0); ALKALINE PHOSPHATASE 191 U/L (38-126); ANION GAP 7 (5-19); ASPARTATE AMINO TRANSFERASE 79 U/L (14-36); BILIRUBIN,DIRECT 0.6 mg/dL (0.0-0.4); BILIRUBIN,TOTAL 1.3 mg/dL (0.2-1.3); BLOOD UREA NITROGEN 11 mg/dL (7-20); CALCIUM 8.6 mg/dL (8.4-10.2); CARBON DIOXIDE 19 mmol/L (22-30); CHLORIDE 111 mmol/L (98-107); GLUCOSE 88 mg/dL (75-110); POTASSIUM 4.4 mmol/L (3.6-5.0)
[2019-06-26] MEDS: BENZTROPINE MESYLATE 1 MG TABLET PO SCH ×2 (09:36→18:00)
[2019-06-26] MEDS: CITALOPRAM HYDROBROMIDE 20 MG TABLET PO SCH (09:36)
--- NOTE | 2019-06-26 10:15 | PDOC PROGRESS REPORT ---
Subjective Progress Note for:: 06/26/19 Reason For Visit: CHOLELITHIASIS,CHOLECYSTITIS,CHOLEDOCHOLITHIASIS Physical Exam Vital Signs: Temp Pulse Resp BP Pulse Ox 98.3 F 62 16 115/69 99 06/26/19 07:16 06/26/19 07:16 06/26/19 07:16 06/26/19 07:16 06/26/19 07:16 Intake & Output 06/25/19 06/26/19 06/27/19 06:59 06:59 06:59 Intake Total 5024 Output Total 507 Balance 4517 Weight 54.431 kg 55.6 kg Results Laboratory Results: 06/26/19 06:10 06/26/19 06:10 06/26/19 06/26/19 06:10 06:10 WBC 10.0 RBC 3.99 Hgb 12.0 Hct 34.0 L MCV 85 MCH 30.1 MCHC 35.3 RDW 13.8 Plt Count 209 Seg Neutrophils % 70.4 Sodium 136.7 L Potassium 4.4 Chloride 111 H Carbon Dioxide 19 L Anion Gap 7 BUN 11 Creatinine 0.69 Est GFR ( Amer) > 60 Glucose 88 Calcium 8.6 Total Bilirubin 1.3 AST 79 H Alkaline Phosphatase 191 H Total Protein 6.0 L Albumin 3.2 L 06/25/19 09:37 Blood Blood Culture (PCR) - Final Staphylococcus Species Impressions: Cholangiogram 06/25/19 00:00 IMPRESSION: Distal common bile duct stone with mild biliary ductal dilatation Fluoroscopy 06/25/19 00:00 IMPRESSION: Distal common bile duct stone with mild biliary ductal dilatation Abdomen/Pelvis CT 06/25/19 04:01 IMPRESSION: Essentially unremarkable exam. Abdomen Ultrasound 06/25/19 05:58 IMPRESSION: Cholelithiasis with findings raising the question of early acute cholecystitis. If surgery is not initially considered, consider follow-up with hepatobiliary scan. Assessment & Plan - Diagnosis (1) Choledocholithiasis Is this a current diagnosis for this admission?: Yes (2) Cholecystitis, acute with cholelithiasis Qualifiers: Biliary obstruction: with biliary obstruction Qualified Code(s): K80.01 - Calculus of gallbladder with acute cholecystitis with obstruction Is this a current diagnosis for this admission?: Yes - Plan Summary Plan Summary: This is a 24-year-old female with cholecystitis, as well as choledocholithiasis. She is status post laparoscopic cholecystectomy with cholangiogram. The gallstone was seen within the distal common bile duct yesterday on cholangiogram. The patient reports that she is feeling somewhat better today. Her incisions are clean and dry. Plan for ERCP today. Likely home tomorrow.
[2019-06-26] MEDS: GABAPENTIN 100 MG CAPSULE PO SCH ×4 (12:58→21:39)
[2019-06-26] MEDS: HYDROXYZINE PAMOATE 25 MG CAPSULE PO SCH ×3 (14:13→18:03)
[2019-06-26] MEDS ORDERED: DEXTROSE 40% GEL 15 GM TUBE PO PRN (18:08)
[2019-06-27] MEDS: NORMAL SALINE 1000 ML 1,000 ML IV PRN ×3 (03:15→23:11)
[2019-06-27] MEDS: AMPICILLIN SODIUM/SULBACTAM NA 3 GM in NORMAL SALINE 100 ML IV SCH ×3 (05:15→23:11)
[2019-06-27] MEDS: MORPHINE SULFATE 10 MG/ML INJ IV PRN ×3 (05:26→20:28)
[2019-06-27] MEDS: CITALOPRAM HYDROBROMIDE 20 MG TABLET PO SCH (08:24)
--- NOTE | 2019-06-27 09:22 | PDOC PROGRESS REPORT ---
Subjective Reason For Visit: CHOLELITHIASIS,CHOLECYSTITIS,CHOLEDOCHOLITHIASIS Physical Exam Vital Signs: Temp Pulse Resp BP Pulse Ox 98.1 F 66 16 126/80 H 99 06/27/19 07:22 06/27/19 07:22 06/27/19 07:22 06/27/19 07:22 06/27/19 07:22 Intake & Output 06/26/19 06/27/19 06/28/19 06:59 06:59 06:59 Intake Total 5124 3980 Output Total 507 Balance 4617 3980 Weight 55.6 kg 56 kg General appearance: PRESENT: no acute distress, cooperative Respiratory exam: PRESENT: clear to auscultation karen Cardiovascular exam: PRESENT: RRR GI/Abdominal exam: PRESENT: other - Soft, nondistended, nontender to palpation. Wounds are clean dry and intact with Steri-Strips. Extremities exam: PRESENT: other - No swelling and no tenderness. Results Laboratory Results: 06/26/19 06:10 06/27/19 08:00 06/27/19 08:00 Sodium Cancelled Potassium Cancelled Chloride Cancelled Carbon Dioxide Cancelled Anion Gap Cancelled BUN Cancelled Creatinine Cancelled Est GFR ( Amer) Cancelled Est GFR (Non-Af Amer) Cancelled Glucose Cancelled Calcium Cancelled Total Bilirubin Cancelled AST Cancelled Alkaline Phosphatase Cancelled Total Protein Cancelled Albumin Cancelled 06/25/19 09:37 Blood Blood Culture (PCR) - Final Staphylococcus Species Impressions: Cholangiogram 06/25/19 00:00 IMPRESSION: Distal common bile duct stone with mild biliary ductal dilatation Fluoroscopy 06/25/19 00:00 IMPRESSION: Distal common bile duct stone with mild biliary ductal dilatation Abdomen/Pelvis CT 06/25/19 04:01 IMPRESSION: Essentially unremarkable exam. Abdomen Ultrasound 06/25/19 05:58 IMPRESSION: Cholelithiasis with findings raising the question of early acute cholecystitis. If surgery is not initially considered, consider follow-up with hepatobiliary scan. Assessment & Plan - Diagnosis (1) Cholecystitis, acute with cholelithiasis Qualifiers: Biliary obstruction: with biliary obstruction Qualified Code(s): K80.01 - Calculus of gallbladder with acute cholecystitis with obstruction Is this a current diagnosis for this admission?: Yes Plan: Status post laparoscopic cholecystectomy with intraoperative cholangiogram. Patient looks very good. Pending ERCP today.
[2019-06-27] MEDS ORDERED: SUCCINYLCHOLINE CHLORIDE INJ 200 MG/10 ML VIAL ONE (09:24)
[2019-06-27] MEDS ORDERED: PHENYLEPHRINE HCL INJ/PF 10 MG/1 ML SDV ONE (09:24)
[2019-06-27] MEDS ORDERED: LIDOCAINE 2% INJ-PF (20 MG/ML) 2 ML AMPUL ONE (09:24)
[2019-06-27] MEDS ORDERED: ONDANSETRON HCL INJ/PF 4 MG/2 ML SDV ONE (09:24)
[2019-06-27] MEDS ORDERED: DEXAMETHASONE SOD PHOSPHATE INJ 4 MG/1 ML VIAL ONE (09:24)
[2019-06-27] MEDS: BENZTROPINE MESYLATE 1 MG TABLET PO SCH ×2 (09:31→20:16)
[2019-06-27] MEDS: GABAPENTIN 100 MG CAPSULE PO SCH ×3 (09:34→20:16)
[2019-06-27] MEDS: HYDROXYZINE PAMOATE 25 MG CAPSULE PO SCH (09:34)
[2019-06-27 10:08] LABS: ALBUMIN 3.3 g/dL (3.5-5.0); ALKALINE PHOSPHATASE 149 U/L (38-126); ANION GAP 5 (5-19); ASPARTATE AMINO TRANSFERASE 36 U/L (14-36); BILIRUBIN,DIRECT 0.1 mg/dL (0.0-0.4); BILIRUBIN,TOTAL 0.7 mg/dL (0.2-1.3); BLOOD UREA NITROGEN 6 mg/dL (7-20); CALCIUM 8.8 mg/dL (8.4-10.2); CARBON DIOXIDE 24 mmol/L (22-30); CHLORIDE 110 mmol/L (98-107); GLUCOSE 111 mg/dL (75-110); TOTAL PROTEIN 5.9 g/dL (6.3-8.2)
[2019-06-27] MEDS ORDERED: PROPOFOL INJ 200 MG/20 ML VIAL IV ONE (17:11)
[2019-06-27] MEDS ORDERED: MIDAZOLAM 2 MG/2 ML INJ ONE (17:11)
[2019-06-27] MEDS ORDERED: FENTANYL CITRATE INJ/PF 100 MCG/2 ML AMPUL ONE (17:11)
[2019-06-27] MEDS ORDERED: HYDROMORPHONE HCL INJ/PF 2 MG/ML AMPULE ONE (17:12)
[2019-06-27] MEDS ORDERED: OXYCODONE-ACETAMINOPHEN 5-325 MG TABLET PO PRN ×2 (18:19)
[2019-06-27] MEDS ORDERED: MORPHINE SULFATE 10 MG/ML INJ IV PRN (18:19)
[2019-06-27] MEDS ORDERED: ONDANSETRON HCL INJ/PF 4 MG/2 ML SDV IV PRN (18:19)
[2019-06-27] MEDS ORDERED: DIPHENHYDRAMINE HCL 50 MG/ML VIAL IV PRN (18:19)
[2019-06-27] MEDS ORDERED: MEPERIDINE HCL/PF INJ 25 MG/1 ML DISP.SYRIN IV PRN (18:19)
[2019-06-27] MEDS ORDERED: FENTANYL CITRATE INJ/PF 100 MCG/2 ML AMPUL IV PRN ×3 (18:19)
[2019-06-27] MEDS ORDERED: PROMETHAZINE HCL INJ 25 MG/1 ML VIAL IV PRN (18:19)
--- NOTE | 2019-06-27 18:40 | PDOC CONSULTATION ---
Consultation Consult Date: 06/26/19 Provider Consulted: JULY LEE History of Present Illness Admission Date/PCP: 06/25/19 09:31 History of Present Illness: TOMAS GOLDSTEIN is a 24 year old female Patient who was admitted to the emergency room with a one-week history of recurrent abdominal pain, jaundice, abnormal liver function tests and gallstones. Her admission bilirubin was 4 with elevated transaminases and a normal lipase. Ultrasound showed cholelithiasis with no dilated ducts. She had a cholecystectomy on 06/25/2019 with a intraoperative cholangiogram consistent with choledocholithiasis. Her bilirubin has come down to normal though her transaminases are still elevated. Past Medical History Cardiac Medical History: Reports: None Pulmonary Medical History: Reports: None EENT Medical History: Reports: None Neurological Medical History: Reports: None Endocrine Medical History: Reports: None Denies: Diabetes Mellitus Type 2 Renal/ Medical History: Reports: None Malignancy Medical History: Reports: None GI Medical History: Reports: Other - History of gallstones Psychiatric Medical History: Reports: Bipolar Disorder, Depression Traumatic Medical History: Reports: None Hematology: Reports: None Infectious Medical History: Reports: None Past Surgical History Past Surgical History: Reports: None, Other - Normal vaginal delivery 5 months ago Social History Smoking Status: Current Every Day Smoker Frequency of Alcohol Use: None Hx Recreational Drug Use: Yes Drugs: Marijuana Hx Prescription Drug Abuse: No - Advance Directive Resuscitation Status: Full Code Family History Family History: Reviewed & Not Pertinent, Other - Father Hx of Schizophrenia Parental Family History Reviewed: No Children Family History Reviewed: NA Sibling(s) Family History Reviewed.: NA Medication/Allergy Home Medications: Gabapentin [Neurontin 100 mg Capsule] 100 mg PO QID 01/24/19 Benztropine Mesylate [Cogentin 1 mg Tablet] 1 mg PO BID 06/25/19 Citalopram Hydrobromide [Celexa 20 mg Tablet] 20 mg PO QAM 06/25/19 Hydroxyzine Pamoate [Vistaril 25 mg Capsule] 25 mg PO BIDP PRN 06/25/19 Paliperidone Palmitate [Invega Trinza] 273 mg IM Q30D 06/25/19 Allergies/Adverse Reactions: No Known Allergies Allergy (Verified 01/24/19 23:50) Review of Systems All systems: reviewed and no additional remarkable complaints except as stated Physical Exam Vital Signs: Temp Pulse Resp BP Pulse Ox 98.2 F 87 16 120/70 100 06/27/19 16:00 06/27/19 16:00 06/27/19 16:00 06/27/19 16:00 06/27/19 16:00 Intake & Output 06/26/19 06/27/19 06/28/19 06:59 06:59 06:59 Intake Total 5124 4080 2280 Output Total 507 Balance 4617 4080 2280 Weight 55.6 kg 56 kg Exam: General: Patient is alert and looks well. HEENT: There is no pallor or jaundice. PERRLA. Oropharynx normal Respiratory: No chest deformity. No respiratory distress. Chest wall palpitation was unremarkable. Breath sounds were normal Cardiovascular: Heart sounds 1 and 2 normal with no murmurs. Abdominal: Not distended. Soft and nontender. Liver and spleen not palpable. No ascites demonstrated. Bowel sounds active. Rectal examination was deferred. Extremities: No edema Neurological: Alert and oriented x4. Grossly nonfocal. Normal speech Skin: No significant rash Psychological: Normal affect Results Laboratory Results: 06/26/19 06:10 06/27/19 09:23 06/27/19 06/27/19 08:00 09:23 Sodium Cancelled 138.6 Potassium Cancelled 4.0 Chloride Cancelled 110 H Carbon Dioxide Cancelled 24 Anion Gap Cancelled 5 BUN Cancelled 6 L Creatinine Cancelled 0.62 Est GFR ( Amer) Cancelled > 60 Est GFR (Non-Af Amer) Cancelled Glucose Cancelled 111 H Calcium Cancelled 8.8 Total Bilirubin Cancelled 0.7 AST Cancelled 36 Alkaline Phosphatase Cancelled 149 H Total Protein Cancelled 5.9 L Albumin Cancelled 3.3 L 06/25/19 09:37 Blood Blood Culture (PCR) - Final Staphylococcus Species Impressions: Cholangiogram 06/25/19 00:00 IMPRESSION: Distal common bile duct stone with mild biliary ductal dilatation Fluoroscopy 06/25/19 00:00 IMPRESSION: Distal common bile duct stone with mild biliary ductal dilatation Abdomen/Pelvis CT 06/25/19 04:01 IMPRESSION: Essentially unremarkable exam. Abdomen Ultrasound 06/25/19 05:58 IMPRESSION: Cholelithiasis with findings raising the question of early acute cholecystitis. If surgery is not initially considered, consider follow-up with hepatobiliary scan. Assessment & Plan - Diagnosis (1) Cholecystitis, acute with cholelithiasis Qualifiers: Biliary obstruction: with biliary obstruction Qualified Code(s): K80.01 - Calculus of gallbladder with acute cholecystitis with obstruction Is this a current diagnosis for this admission?: Yes Plan: The need for an ERCP including the risks and benefits were explained to the patient and she is in agreement. (2) Abnormal LFTs Is this a current diagnosis for this admission?: Yes (3) Choledocholithiasis Is this a current diagnosis for this admission?: Yes
--- NOTE | 2019-06-27 18:42 | Operative Report ---
Operative Report DATE OF SURGERY: 06/27/19 Operative Report: Pre-op diagnosis: Jaundice and abnormal intraoperative cholangiogram Post-op diagnosis: Common bile duct sludge Surgery: ERCP with sphincterotomy and balloon sludge extraction Medications: As per anesthesia Tissue removed: None Procedure: After informed consent obtained from patient, patient was placed under general anesthesia. The ERCP endoscope was then inserted into the esophagus blindly and advanced into the stomach. The duodenum was entered and the ampulla was identified. Using the triple-lumen sphincterotomy catheter the common bile duct was freely cannulated. A cholangiogram was obtained . A good sized sphincterotomy was then performed using the endocut mode. The catheter was removed over the guidewire before a 9-12 mm balloon catheter was inserted. The balloon was inflated to 12 mm in the proximal common bile duct and pulled do wn the duct. The duct was swept two more times. A balloon occlusion cholangiogram was normal. Patient tolerated procedure well. Findings Common bile duct: Small amount of sludge was extracted Intrahepatic ducts: Normal Pancreatic duct: Not cannulated Plan: Follow-up LFTs OPERATION: .
--- NOTE | 2019-06-27 20:09 | RADIOLOGY REPORT (SQ) ---
EXAM DESCRIPTION: ENDO CATH/BILIARY DUCT; NO CHG FLUORO IMAGES COMPLETED DATE/TIME: 06/27/2019 6:49 pm; 06/27/2019 6:48 pm REASON FOR STUDY: ERCP COMPARISON: ERCP 06/25/2019 Abdominal ultrasound 06/25/2019 CT abdomen pelvis 06/25/2019 FLUOROSCOPY TIME: 4 minutes 6 digital fluoroscopic images saved to PACS. TECHNIQUE: Intra-operative images acquired during surgical procedure to evaluate progress. NUMBER OF IMAGES: 6 digital fluoroscopic images LIMITATIONS: None. FINDINGS: Intra procedural imaging during ERCP performed by Dr. Shaffer. Contrast injected into the common bile duct, duct swept with a balloon tipped catheter. No biliary d uctal dilatation. No biliary ductal filling defects worrisome for retained stones. Clips post sanchez cystectomy IMPRESSION: IMAGE(S) OBTAINED DURING PROCEDURE. COMMENT: Quality ID [id number]: Final reports for procedures using fluoroscopy that document radiation exp osure indices, or exposure time and number of fluorographic images (if radiation exposure indices are not available) Please consult full operative report of the attending physician for description of the procedure. TECHNICAL DOCUMENTATION: JOB ID: [id number] 2010 [employer]- All Rights Reserved Reading location - IP/workstation name: [email or web address]
--- NOTE | 2019-06-27 20:09 | RADIOLOGY REPORT (SQ) ---
EXAM DESCRIPTION: ENDO CATH/BILIARY DUCT; NO CHG FLUORO IMAGES COMPLETED DATE/TIME: 06/27/2019 6:49 pm; 06/27/2019 6:48 pm REASON FOR STUDY: ERCP COMPARISON: ERCP 06/25/2019 Abdominal ultrasound 06/25/2019 CT abdomen pelvis 06/25/2019 FLUOROSCOPY TIME: 4 minutes 6 digital fluoroscopic images saved to PACS. TECHNIQUE: Intra-operative images acquired during surgical procedure to evaluate progress. NUMBER OF IMAGES: 6 digital fluoroscopic images LIMITATIONS: None. FINDINGS: Intra procedural imaging during ERCP performed by Dr. Shaffer. Contrast injected into the common bile duct, duct swept with a balloon tipped catheter. No biliary d uctal dilatation. No biliary ductal filling defects worrisome for retained stones. Clips post sanchez cystectomy IMPRESSION: IMAGE(S) OBTAINED DURING PROCEDURE. COMMENT: Quality ID 145: Final reports for procedures using fluoroscopy that document radiation exp osure indices, or exposure time and number of fluorographic images (if radiation exposure indices are not available) Please consult full operative report of the attending physician for description of the procedure. TECHNICAL DOCUMENTATION: JOB ID: [id number] 2010 [email or web address]- All Rights Reserved Reading location - IP/workstation name: [id number]
[2019-06-27] MEDS ORDERED: HYDROXYZINE PAMOATE 25 MG CAPSULE PO ONE (23:15)
[2019-06-28] MEDS: GABAPENTIN 100 MG CAPSULE PO SCH ×2 (00:50→06:33)
[2019-06-28] MEDS: MORPHINE SULFATE 10 MG/ML INJ IV PRN ×2 (01:30→07:43)
[2019-06-28] MEDS: AMPICILLIN SODIUM/SULBACTAM NA 3 GM in NORMAL SALINE 100 ML IV SCH (06:33)
[2019-06-28] MEDS: CITALOPRAM HYDROBROMIDE 20 MG TABLET PO SCH (07:43)
[2019-06-28 07:56] LABS: ALBUMIN 3.6 g/dL (3.5-5.0); ALKALINE PHOSPHATASE 163 U/L (38-126); ANION GAP 7 (5-19); ASPARTATE AMINO TRANSFERASE 28 U/L (14-36); BILIRUBIN,DIRECT 0.3 mg/dL (0.0-0.4); BILIRUBIN,TOTAL 0.8 mg/dL (0.2-1.3); BLOOD UREA NITROGEN 6 mg/dL (7-20); CALCIUM 9.3 mg/dL (8.4-10.2); CARBON DIOXIDE 24 mmol/L (22-30); CHLORIDE 107 mmol/L (98-107); GLUCOSE 109 mg/dL (75-110); POTASSIUM 4.3 mmol/L (3.6-5.0); TOTAL PROTEIN 6.5 g/dL (6.3-8.2)
[2019-06-28] MEDS ORDERED: HYDROXYZINE PAMOATE 25 MG CAPSULE PO SCH (10:00)
[2019-06-28 10:08] VITALS: BP 105/66
--- NOTE | 2019-06-28 10:09 | PDOC DISCHARGE SUMMARY ---
General - Admit/Disc Date/PCP Admission Date/Primary Care Provider: 06/25/19 09:31 Discharge Date: 06/28/19 - Discharge Diagnosis Final Diagnosis: chronic cholecystitis with cholelithiasis - Assessment Summary: Ms. Leyva is a 24 yo female admitted on 06/25/19 with known history of gallstones, abdominal pain and elevated liver enzymes. Dr. Lilly performed a laparoscopic cholecystectomy on 06/26/19 subsequent ERCP for removal of sludge. She currently has no concerns and tolerating regular diet. Ready for discharge home. - Additional Information Resuscitation Status: Full Code Discharge Diet: As Tolerated Discharge Activity: Balance Activity w/Rest, No Lifting Over 10 Pounds - for two weeks. Prescriptions: Tramadol HCl [Ultram 50 mg Tablet] 50 mg PO Q6 PRN #20 tablet PRN Reason: Home Medications: Gabapentin [Neurontin 100 mg Capsule] 100 mg PO QID 01/24/19 Benztropine Mesylate [Cogentin 1 mg Tablet] 1 mg PO BID 06/25/19 Citalopram Hydrobromide [Celexa 20 mg Tablet] 20 mg PO QAM 06/25/19 Hydroxyzine Pamoate [Vistaril 25 mg Capsule] 25 mg PO BIDP PRN 06/25/19 Paliperidone Palmitate [Invega Trinza] 273 mg IM Q30D 06/25/19 Tramadol HCl [Ultram 50 mg Tablet] 50 mg PO Q6 PRN #20 tablet 06/28/19 History of Present Illiness History of Present Illness: TOMAS LEYVA is a 24 year old female Physical Exam Vital Signs: Temp Pulse Resp BP Pulse Ox 98.4 F 56 L 16 112/64 98 06/28/19 07:44 06/28/19 07:44 06/28/19 05:16 06/28/19 07:44 06/28/19 07:44 Intake & Output 06/27/19 06/28/19 06/29/19 06:59 06:59 06:59 Intake Total 4080 5528 Output Total 1000 Balance 4080 4528 Weight 56 kg Results Laboratory Results: WBC 10.0 10^3/uL (4.0-10.5) 06/26/19 06:10 RBC 3.99 10^6/uL (3.72-5.28) 06/26/19 06:10 Hgb 12.0 g/dL (12.0-15.5) 06/26/19 06:10 Hct 34.0 % (36.0-47.0) L 06/26/19 06:10 MCV 85 fl (80-97) 06/26/19 06:10 MCH 30.1 pg (27.0-33.4) 06/26/19 06:10 MCHC 35.3 g/dL (32.0-36.0) 06/26/19 06:10 RDW 13.8 % (11.5-14.0) 06/26/19 06:10 Plt Count 209 10^3/uL (150-450) 06/26/19 06:10 Lymph % (Auto) 20.9 % (13-45) 06/26/19 06:10 [place] % (Auto) 7.2 % (3-13) 06/26/19 06:10 Eos % (Auto) 1.0 % (0-6) 06/26/19 06:10 Baso % (Auto) 0.5 % (0-2) 06/26/19 06:10 Absolute Neuts (auto) 7.1 10^3/uL (1.7-8.2) 06/26/19 06:10 Absolute Lymphs (auto) 2.1 10^3/uL (0.5-4.7) 06/26/19 06:10 Absolute Monos (auto) 0.7 10^3/uL (0.1-1.4) 06/26/19 06:10 Absolute Eos (auto) 0.1 10^3/uL (0.0-0.6) 06/26/19 06:10 Absolute Basos (auto) 0.1 10^3/uL (0.0-0.2) 06/26/19 06:10 Seg Neutrophils % 70.4 % (42-78) 06/26/19 06:10 Sodium 138.3 mmol/L (137-145) 06/28/19 07:19 Potassium 4.3 mmol/L (3.6-5.0) 06/28/19 07:19 Chloride 107 mmol/L (98-107) 06/28/19 07:19 Carbon Dioxide 24 mmol/L (22-30) 06/28/19 07:19 Anion Gap 7 (5-19) 06/28/19 07:19 BUN 6 mg/dL (7-20) L 06/28/19 07:19 Creatinine 0.57 mg/dL (0.52-1.25) 06/28/19 07:19 Est GFR ( Amer) > 60 (>60) 06/28/19 07:19 Est GFR (Non-Af Amer) Cancelled 06/27/19 08:00 Est GFR (MDRD) Non-Af > 60 (>60) 06/28/19 07:19 Glucose 109 mg/dL (75-110) 06/28/19 07:19 Calcium 9.3 mg/dL (8.4-10.2) 06/28/19 07:19 Total Bilirubin 0.8 mg/dL (0.2-1.3) 06/28/19 07:19 Direct Bilirubin 0.3 mg/dL (0.0-0.4) 06/28/19 07:19 Neonat Total Bilirubin Not Reportable 06/28/19 07:19 Neonat Direct Bilirubin Not Reportable 06/28/19 07:19 Neonat Indirect Bili Not Reportable 06/28/19 07:19 AST 28 U/L (14-36) 06/28/19 07:19 ALT 162 U/L (<35) H 06/28/19 07:19 Alkaline Phosphatase 163 U/L (38-126) H 06/28/19 07:19 Total Protein 6.5 g/dL (6.3-8.2) 06/28/19 07:19 Albumin 3.6 g/dL (3.5-5.0) 06/28/19 07:19 Lipase 244.9 U/L (23-300) 06/25/19 02:56 EGFR Cancelled 06/27/19 08:00 Urine Color GIOVANNI 06/25/19 03:12 Urine Appearance CLEAR 06/25/19 03:12 Urine pH 5.0 (5.0-9.0) 06/25/19 03:12 Ur Specific [place] 1.015 06/25/19 03:12 Urine Protein NEGATIVE mg/dL (NEGATIVE) 06/25/19 03:12 Urine Glucose (UA) NEGATIVE mg/dL (NEGATIVE) 06/25/19 03:12 Urine Ketones NEGATIVE mg/dL (NEGATIVE) 06/25/19 03:12 Urine Blood NEGATIVE (NEGATIVE) 06/25/19 03:12 Urine Nitrite NEGATIVE (NEGATIVE) 06/25/19 03:12 Urine Bilirubin SMALL (NEGATIVE) H 06/25/19 03:12 Urine Urobilinogen 4.0 mg/dL (<2.0) H 06/25/19 03:12 Ur Leukocyte Esterase SMALL (NEGATIVE) H 06/25/19 03:12 Urine WBC (Auto) 16 /HPF 06/25/19 03:12 Urine RBC (Auto) 2 /HPF 06/25/19 03:12 U Hyaline Cast (Auto) 12 /LPF 06/25/19 03:12 Urine Bacteria (Auto) TRACE /HPF 06/25/19 03:12 Squamous Epi Cells Auto 9 /HPF 06/25/19 03:12 Urine Mucus (Auto) FEW /LPF 06/25/19 03:12 Urine Ascorbic Acid 40 (NEGATIVE) H 06/25/19 03:12 Urine HCG, Qual NEGATIVE (NEGATIVE) 06/25/19 03:12 Impressions: Cholangiogram 06/25/19 00:00 IMPRESSION: Distal common bile duct stone with mild biliary ductal dilatation Fluoroscopy 06/25/19 00:00 IMPRESSION: Distal common bile duct stone with mild biliary ductal dilatation Abdomen/Pelvis CT 06/25/19 04:01 IMPRESSION: Essentially unremarkable exam. Abdomen Ultrasound 06/25/19 05:58 IMPRESSION: Cholelithiasis with findings raising the question of early acute cholecystitis. If surgery is not initially considered, consider follow-up with hepatobiliary scan. Catheter Placement 06/27/19 00:00 IMPRESSION: IMAGE(S) OBTAINED DURING PROCEDURE. Fluoroscopy 06/27/19 00:00
== END 2019-06-28 10:32 | disposition home or self-care (01) | DRG 419 ==
LOC: ER 02:25 → EH 09:31 → 2N 11:00
PROVIDERS: ADMIT Surgery; ATTEND Surgery
PROC: BF101ZZ Fluoroscopy of Bile Ducts using Low Osmolar Contrast (ICD-10-PCS; 2019-06-25)
PROC: 0FT44ZZ Resection of Gallbladder, Percutaneous Endoscopic Approach (ICD-10-PCS; principal; 2019-06-25 13:00)
PROC: 0FC98ZZ Extirpation of Matter from Common Bile Duct, Via Natural or Artificial Opening Endoscopic (ICD-10-PCS; 2019-06-27)
DX: K80.65 Calculus of gallbladder and bile duct with chronic cholecystitis with obstruction (principal); F25.0 Schizoaffective disorder, bipolar type; F17.200 Nicotine dependence, unspecified, uncomplicated
CPT/HCPCS: 36415; 43262; 43264; 732; 74177; 74300; 74328; 76705; 790; 80053; 81001; 81025; 83690; 85025; 87040; 87077; 87150; 87186; 88304; 96374; 96375; 99285; J0295; J0330; J1100; J1170; J1885; J2250; J2270; J2370; J2405; J2704; J2710; J3010; J3490; J7030; J7050; Q9967